=== PATIENT | male | born 1935 | race Hispanic/Latino ===

== ENCOUNTER 2016-12-16 05:30 | Inpatient (IN) | payer MEDICARE ==
[2016-12-16] MEDS ORDERED: NACL 0.9% 1000 ML 1,000 ML IV ONE (07:06)
[2016-12-16] MEDS ORDERED: LEVAQUIN 500MG/100ML 500 MG/100 ML BAG IV ONE (07:21)
[2016-12-16 07:57] LABS: BUN/Creatinine Ratio 16.36; Basophils % (Auto) 0.6 % (0.0-1.8); Blood Urea Nitrogen 18 mg/dL (9-20); Carbon Dioxide 27 mmol/L (22-30); Eosinophils % (Auto) 6.1 % (0.0-4.3); Glucose 77 mg/dL (75-100); Hematocrit 33.2 % (35.5-45.6); Hemoglobin 10.8 gm/dl (11.8-15.2); Mean Corpuscular HGB Conc 33 % (32-34); Mean Corpuscular Hemoglobin 28 pg (28-32); Mean Corpuscular Volume 84 fl (84-94); Platelet Count 215 K/mm3 (140-440); Red Blood Count 3.95 M/mm3 (3.65-5.03); Red Cell Distribution Width 16.1 % (13.2-15.2); White Blood Count 9.7 K/mm3 (4.5-11.0)
[2016-12-16 07:58] LABS: Anion Gap 16 mmol/L; Chloride 95.7 mmol/L (98-107); Potassium 4.5 mmol/L (3.6-5.0); Sodium 134 mmol/L (137-145)
[2016-12-16 08:06] LABS: INR 0.99 (0.87-1.13)
[2016-12-16 08:07] LABS: Partial Thromboplastin Time 34.7 Sec. (24.2-36.6)
--- NOTE | 2016-12-16 08:11 | XRay Report ---
LEFT HIP, 2 views: History: Pain after fall. The bony architecture is intact without evidence of fracture or dislocation. Vascular calcifications are noted. IMPRESSION: Unremarkable left hip.
--- NOTE | 2016-12-16 08:12 | XRay Report ---
AP CHEST: HISTORY: chest pain AP view of the chest demonstrates a normal mediastinal and cardiac contour with clear lungs and normal bony and soft tissue structures. IMPRESSION: No acute process.
--- NOTE | 2016-12-16 08:24 | Cat Scan Report ---
CT HEAD WITHOUT CONTRAST: HISTORY: Headache. TECHNIQUE: Sequential CT images without contrast. FINDINGS: Non-contrast CT of the head is submitted demonstrating central and cortical atrophy. There are low density changes in the periventricular white matter. A few chronic lacunar infarcts in both basal ganglia are unchanged since 09/16/16. There is no intracranial hemorrhage or mass effect. There is no shift of the midline. Basilar cisterns are patent. The included portions of the paranasal sinuses and mastoid air cells are clear. IMPRESSION: Senescent changes as noted. No acute intracranial process. No significant change since 09/16/16.
[2016-12-16 08:50] LABS: Bacteria,Urine 2+ /HPF (Negative); Bilirubin,Urine NEG (Negative); Blood,Urine MOD (Negative); Ketones,Urine NEG (Negative); Leukocyte Esterase,Urine LG (Negative); Nitrite,Urine POS (Negative); Urobilinogen,Urine < 2.0 mg/dL (<2.0)
[2016-12-16 08:51] LABS: WBC,Urine > 182.0 /HPF (0.0-6.0)
--- NOTE | 2016-12-16 09:30 | History and Physical Report ---
History of Present Illness Date of examination: 12/16/16 Date of admission: 12/16/16. Chief complaint: Altered mental status, history of fall History of present illness: Patient is a 81-year-old gentleman was a history of coronary artery disease status post CABG in 2005, dementia COPD, hypertension and hyperlipidemia who is being For by family members at home, was noted to have alteration in his mental status. Was therefore brought to the emergency department. Patient has an indwelling Amaral catheter for urinary retention. At emergency department she was found to be very cloudy. Urinalysis shows 182 white blood cell with positive nitrites. CT scan of the head was unremarkable. Patient had no fever. History was obtained from emergency room medical record as to was no family member around. Past History Past Medical History: CAD, COPD, hypertension, hyperlipidemia, other (dementia) Past Surgical History: CABG Social history: denies: smoking, alcohol abuse, prescription drug abuse, IV drug use Family history: no significant family history Medications and Allergies Allergies Allergy/AdvReac Type Severity Reaction Status Date / Time cefuroxime axetil Allergy Hives Verified 11/27/14 13:21 [From Ceftin] tetracycline Allergy Unknown Verified 11/27/14 13:22 Home Medications Medication Instructions Recorded Confirmed Last Taken Type Albuterol Sulfate [Proventil HFA] 1 - 2 puff IH Q4H PRN 11/27/14 09/16/16 Unknown History Aspirin [Aspirin BABY CHEW TAB] 81 mg PO QDAY 11/27/14 09/16/16 09/12/16 History Docusate Sodium [Colace CAP] 100 mg PO DAILY 11/27/14 09/16/16 09/12/16 History Duloxetine HCl [DULoxetine] 60 mg PO DAILY 11/27/14 09/16/16 09/12/16 History Haloperidol 0.5 mg PO BID 11/27/14 09/16/16 09/12/16 History Metoprolol [Lopressor TAB] 25 mg PO DAILY 11/27/14 09/16/16 09/12/16 History Nortriptyline [Pamelor] 10 mg PO HS 11/27/14 09/16/16 09/12/16 History lamoTRIgine [LaMICtal] 100 mg PO HS 11/27/14 09/16/16 09/12/16 History Tamsulosin [Flomax] 0.4 mg PO HS 06/14/16 09/16/16 09/12/16 History Ipratropium/Albuterol Sulfate 1 ampul IH TIDRT ampul.neb 06/21/16 09/16/16 Unknown Rx [Duoneb 0.5 mg-3 mg/3 ml Soln] LORazepam [Ativan] 0.5 mg PO DAILY #5 tablet 06/21/16 09/16/16 Unknown Rx amLODIPine [Norvasc] 10 mg PO QDAY 09/12/16 09/16/16 09/12/16 History Brimonidine 0.15% [Alphagan P 1 drops OP Q8H 09/16/16 09/16/16 Unknown History 0.15%] Lisinopril [Zestril TAB] 5 mg PO BID 09/16/16 09/16/16 Unknown History Methylphenidate HCl [Ritalin] 10 mg PO DAILY 09/16/16 09/16/16 Unknown History Levofloxacin [Levaquin TAB] 500 mg PO QDAY #7 tablet 09/19/16 Unknown Rx Nitrofurantoin Daniels/M-Cryst 100 mg PO Q12HR #20 capsule 09/25/16 Unknown Rx [Macrobid CAP] Active Meds: Active Medications Albuterol/Ipratropium (Duoneb 0.5 Mg-3 Mg/3 Ml Soln) 1 ampul IH TIDRT MELANIE Amlodipine Besylate (Norvasc) 10 mg PO QDAY [facility] Aspirin (Baby Aspirin) 81 mg PO QDAY [facility] Brimonidine Tartrate (Alphagan P 0.15%) 1 drops OU Q8H MELANIE Docusate Sodium (Colace) 100 mg PO DAILY [facility] Heparin Sodium (Porcine) (Heparin) 5,000 unit SUB-Q Q12HR [facility] Sodium Chloride (Nacl 0.9% 1000 Ml) 1,000 mls @ 125 mls/hr IV ONCE ONE Stop: 12/16/16 15:05 Last Admin: 12/16/16 08:45 Dose: 125 mls/hr Levofloxacin/Dextrose (Levaquin 750mg/150ml) 750 mg in 150 mls @ 100 mls/hr IV Q24HR MELANIE PRN Reason: Protocol Lamotrigine (Lamictal) 100 mg PO HS [facility] Lisinopril (Zestril) 5 mg PO BID [facility] Metoprolol Tartrate (Lopressor) 25 mg PO DAILY [facility] Miscellaneous Medication (Haloperidol [Haloperidol]) 0.5 mg PO BID MELANIE Tamsulosin HCl (Flomax) 0.4 mg PO HS [facility] Review of Systems ROS unobtainable: due to mental status Exam - Constitutional Vitals: Temp Pulse Resp BP Pulse Ox 98.6 F 75 17 129/55 100 12/16/16 06:04 12/16/16 06:40 12/16/16 06:40 12/16/16 06:40 12/16/16 06:40 General appearance: Present: no acute distress, cachectic - EENT Eyes: Present: PERRL - Neck Neck: Present: supple - Respiratory Respiratory effort: normal Respiratory: bilateral: diminished - Cardiovascular Heart Sounds: Present: S1 & S2. Absent: rub, click - Extremities Extremities: pulses symmetrical, No edema Peripheral Pulses: within normal limits - Abdominal General gastrointestinal: Present: soft, non-tender, non-distended, normal bowel sounds - Integumentary Integumentary: Present: clear, warm, dry - Musculoskeletal Musculoskeletal: gait normal, strength equal bilaterally - Psychiatric Psychiatric: appropriate mood/affect, intact judgment & insight - Neurologic Neurologic: CNII-XII intact, moves all extremities Results - Labs CBC & Chem 7: 12/16/16 07:20 12/16/16 07:20 Labs: Abnormal lab results 12/16/16 12/16/16 12/16/16 Range/Units 07:20 07:20 08:28 Hgb 10.8 L (11.8-15.2) gm/dl Hct 33.2 L (35.5-45.6) % RDW 16.1 H (13.2-15.2) % Daniels % (Auto) 9.4 H (0.0-7.3) % Eos % (Auto) 6.1 H (0.0-4.3) % Daniels # 0.9 H (0.0-0.8) K/mm3 Eos # 0.6 H (0.0-0.4) K/mm3 Sodium 134 L (137-145) mmol/L Chloride 95.7 L (98-107) mmol/L Urine WBC (Auto) > 182.0 H (0.0-6.0) /HPF Assessment and Plan 1. Urinary tract infection: Obtain urine culture. Patient has an indwelling Amaral skeletal for urinary retention. We'll commence patient on IV Levaquin. 2. Metabolic encephalopathy: Likely secondary to infection. 3. Possible sepsis: We'll check lactic acid level, blood culture, commence IV hydration. Patient already IV Levaquin. 4. Anemia: Likely of 20 disease versus malnutrition. We will obtain iron TIBC B12 folic acid levels. 5. History of dementia. We'll monitor closely. 6. DVT prophylaxis with Lovenox and GI prophylaxis with Pepcid Spent 35 minutes in direct patient care review of medical records, laboratory and radiological data during this admission process
--- NOTE | 2016-12-16 09:34 | Emergency Department Report ---
ED General Adult HPI - General Chief complaint: Fall Stated complaint: HIP PAIN Time Seen by Provider: 12/16/16 07:04 Source: EMS Mode of arrival: Stretcher Limitations: Other - History of Present Illness Initial comments: There is a family member currently available. I am relying on the triage history. The states patiently recently seen for fall and left hip pain. Patient has Amaral catheter in order thinks patient has a UTI. Apparently his level of consciousness has been diminished lately. Per EMS there was left hip pain. On my encounter the patient has no complaint of pain. He is unable to provide any historical information due to apparent advanced dementia. However, he is alert and has no specific symptoms. He does know he is in a hospital but that's all the contextual information he can provide. -: unknown Location: left, lower extremity Worsens with: other - Related Data Home Medications Medication Instructions Recorded Confirmed Last Taken Albuterol Sulfate [Proventil HFA] 1 - 2 puff IH Q4H PRN 11/27/14 09/16/16 Unknown Aspirin [Aspirin BABY CHEW TAB] 81 mg PO QDAY 11/27/14 09/16/16 09/12/16 Docusate Sodium [Colace CAP] 100 mg PO DAILY 11/27/14 09/16/16 09/12/16 Duloxetine HCl [DULoxetine] 60 mg PO DAILY 11/27/14 09/16/16 09/12/16 Haloperidol 0.5 mg PO BID 11/27/14 09/16/16 09/12/16 Metoprolol [Lopressor TAB] 25 mg PO DAILY 11/27/14 09/16/16 09/12/16 Nortriptyline [Pamelor] 10 mg PO HS 11/27/14 09/16/16 09/12/16 lamoTRIgine [LaMICtal] 100 mg PO HS 11/27/14 09/16/16 09/12/16 Tamsulosin [Flomax] 0.4 mg PO HS 06/14/16 09/16/16 09/12/16 amLODIPine [Norvasc] 10 mg PO QDAY 09/12/16 09/16/16 09/12/16 Brimonidine 0.15% [Alphagan P 1 drops OP Q8H 09/16/16 09/16/16 Unknown 0.15%] Lisinopril [Zestril TAB] 5 mg PO BID 09/16/16 09/16/16 Unknown Methylphenidate HCl [Ritalin] 10 mg PO DAILY 09/16/16 09/16/16 Unknown Previous Rx's Medication Instructions Recorded Last Taken Type Ipratropium/Albuterol Sulfate 1 ampul IH TIDRT ampul.neb 06/21/16 Unknown Rx [Duoneb 0.5 mg-3 mg/3 ml Soln] LORazepam [Ativan] 0.5 mg PO DAILY #5 tablet 06/21/16 Unknown Rx Levofloxacin [Levaquin TAB] 500 mg PO QDAY #7 tablet 09/19/16 Unknown Rx Nitrofurantoin [place]bot/M-Cryst 100 mg PO Q12HR #20 capsule 09/25/16 Unknown Rx [Macrobid CAP] Allergies Allergy/AdvReac Type Severity Reaction Status Date / Time cefuroxime axetil Allergy Hives Verified 11/27/14 13:21 [From Ceftin] tetracycline Allergy Unknown Verified 11/27/14 13:22 ED Review of Systems ROS: Stated complaint: HIP PAIN Other details as noted in HPI Comment: Unobtainable due to pts medical conditions ED Past Medical Hx - Past Medical History Hx Hypertension: Yes Hx CVA: Yes (TIA) Hx Heart Attack/AMI: Yes Hx Congestive Heart Failure: Yes Hx Diabetes: Yes Hx COPD: Yes Hx Dementia: Yes Hx HIV: No Additional medical history: enlarged prostate, urinary retention, glaucoma, dementia, alzheimers, CAD, diabetes - Surgical History Hx Open Heart Surgery: Yes Hx Cholecystectomy: Yes Additional Surgical History: Abdominal surgery had turmor removed - Social History Smoking Status: Unknown if ever smoked Substance Use Type: None - Medications Home Medications: Home Medications Medication Instructions Recorded Confirmed Last Taken Type Albuterol Sulfate [Proventil HFA] 1 - 2 puff IH Q4H PRN 11/27/14 09/16/16 Unknown History Aspirin [Aspirin BABY CHEW TAB] 81 mg PO QDAY 11/27/14 09/16/16 09/12/16 History Docusate Sodium [Colace CAP] 100 mg PO DAILY 11/27/14 09/16/16 09/12/16 History Duloxetine HCl [DULoxetine] 60 mg PO DAILY 11/27/14 09/16/16 09/12/16 History Haloperidol 0.5 mg PO BID 0209/16/16 09/12/16 History Metoprolol [Lopressor TAB] 25 mg PO DAILY 11/27/14 09/16/16 09/12/16 History Nortriptyline [Pamelor] 10 mg PO HS 11/27/14 09/16/16 09/12/16 History lamoTRIgine [LaMICtal] 100 mg PO HS 11/27/14 09/16/16 09/12/16 History Tamsulosin [Flomax] 0.4 mg PO HS 06/14/16 09/16/16 09/12/16 History Ipratropium/Albuterol Sulfate 1 ampul IH TIDRT ampul.neb 06/21/16 09/16/16 Unknown Rx [Duoneb 0.5 mg-3 mg/3 ml Soln] LORazepam [Ativan] 0.5 mg PO DAILY #5 tablet 06/21/16 09/16/16 Unknown Rx amLODIPine [Norvasc] 10 mg PO QDAY 09/12/16 09/16/16 09/12/16 History Brimonidine 0.15% [Alphagan P 1 drops OP Q8H 09/16/16 09/16/16 Unknown History 0.15%] Lisinopril [Zestril TAB] 5 mg PO BID 09/16/16 09/16/16 Unknown History Methylphenidate HCl [Ritalin] 10 mg PO DAILY 09/16/16 09/16/16 Unknown History Levofloxacin [Levaquin TAB] 500 mg PO QDAY #7 tablet 09/19/16 Unknown Rx Nitrofurantoin [place]bot/M-Cryst 100 mg PO Q12HR #20 capsule 09/25/16 Unknown Rx [Macrobid CAP] ED Physical Exam - General Limitations: Altered Mental Status General appearance: alert, in no apparent distress - Head Head exam: Present: atraumatic, normocephalic - Eye Eye exam: Present: normal appearance. Absent: scleral icterus - ENT ENT exam: Present: normal exam, mucous membranes moist - Neck Neck exam: Present: normal inspection - Respiratory Respiratory exam: Present: normal lung sounds bilaterally. Absent: respiratory distress - Cardiovascular Cardiovascular Exam: Present: regular rate, normal rhythm. Absent: systolic murmur, diastolic murmur, rubs, gallop - GI/Abdominal GI/Abdominal exam: Present: soft, normal bowel sounds. Absent: distended, tenderness, guarding, rebound, rigid - Rectal Rectal exam: Present: deferred - Extremities Exam Extremities exam: Present: normal inspection, full ROM, normal capillary refill. Absent: tenderness, pedal edema, joint swelling, calf tenderness - Back Exam Back exam: Present: normal inspection - Neurological Exam Neurological exam: Present: alert, oriented X3, CN II-XII intact. Absent: motor sensory deficit - Psychiatric Psychiatric exam: Present: normal affect, normal mood - Skin Skin exam: Present: warm, dry, intact, normal color. Absent: rash ED Course Vital Signs 12/16/16 12/16/16 12/16/16 05:59 06:00 06:03 Temperature 98.6 F Pulse Rate 76 Respiratory 16 Rate Blood Pressure 123/57 130/54 Blood Pressure 123/57 [Right] O2 Sat by Pulse 93 93 Oximetry 12/16/16 12/16/16 12/16/16 06:04 06:10 06:20 Temperature 98.6 F Pulse Rate 76 Respiratory 16 Rate Blood Pressure 123/57 130/54 Blood Pressure [Right] O2 Sat by Pulse 93 93 96 Oximetry 12/16/16 12/16/16 06:30 06:40 Temperature Pulse Rate 71 75 Respiratory 18 17 Rate Blood Pressure 129/55 129/55 Blood Pressure [Right] O2 Sat by Pulse 97 100 Oximetry - Reevaluation(s) Reevaluation #1: The patient was given empiric ceftriaxone. 12/16/16 09:31 Reevaluation #2: Discussed with Dr. Long and admitted to the hospitalist service. 12/16/16 09:36 ED Medical Decision Making - Lab Data Result diagrams: 12/16/16 07:20 12/16/16 07:20 Laboratory Results - last 24 hr 12/16/16 12/16/16 12/16/16 07:20 07:20 07:20 WBC 9.7 RBC 3.95 Hgb 10.8 L Hct 33.2 L MCV 84 MCH 28 MCHC 33 RDW 16.1 H Plt Count 215 Lymph % (Auto) 19.0 [place] % (Auto) 9.4 H Eos % (Auto) 6.1 H Baso % (Auto) 0.6 Lymph # 1.9 Talbot # 0.9 H Eos # 0.6 H Baso # 0.1 Seg Neutrophils % 64.9 Seg Neutrophils # 6.3 PT 13.0 INR 0.99 APTT 34.7 Sodium 134 L Potassium 4.5 Chloride 95.7 L Carbon Dioxide 27 Anion Gap 16 BUN 18 Creatinine 1.1 Estimated GFR > 60 BUN/Creatinine Ratio 16.36 Glucose 77 Lactic Acid Calcium 9.0 Urine Color Urine Turbidity Urine pH Ur Specific [place] Urine Protein Urine Glucose (UA) Urine Ketones Urine Blood Urine Nitrite Urine Bilirubin Urine Urobilinogen Ur Leukocyte Esterase Urine WBC (Auto) Urine RBC (Auto) Urine Bacteria (Auto) Urine WBC Clumps Amorphous Crystals Blood Type Antibody Screen 12/16/16 12/16/16 12/16/16 07:20 07:20 08:28 WBC RBC Hgb Hct MCV MCH MCHC RDW Plt Count Lymph % (Auto) [place] % (Auto) Eos % (Auto) Baso % (Auto) Lymph # Talbot # Eos # Baso # Seg Neutrophils % Seg Neutrophils # PT INR APTT Sodium Potassium Chloride Carbon Dioxide Anion Gap BUN Creatinine Estimated GFR BUN/Creatinine Ratio Glucose Lactic Acid 0.7 Calcium Urine Color Yellow Urine Turbidity Turbid Urine pH 7.0 Ur Specific Carpio 1.016 Urine Protein 30 mg/dl Urine Glucose (UA) Neg Urine Ketones Neg Urine Blood Mod Urine Nitrite Pos Urine Bilirubin Neg Urine Urobilinogen < 2.0 Ur Leukocyte Esterase Lg Urine WBC (Auto) > 182.0 H Urine RBC (Auto) 80.0 Urine Bacteria (Auto) 2+ Urine WBC Clumps 3+ Amorphous Crystals Few Blood Type B POSITIVE Antibody Screen Negative - Radiology Data Radiology results: report reviewed interpreted by me: Extensive vascular calcifications and previous iliac grafts bilaterally. No acute process and no fracture. Previous CT the abdomen reviewed showed nothing acute from last admission. Critical care attestation.: If time is entered above; I have spent that time in minutes in the direct care of this critically ill patient, excluding procedure time. ED Disposition Clinical Impression: Pyelonephritis, Volume depletion, Physical deconditioning Altered mental status Qualifiers: Altered mental status type: disorientation Qualified Code(s): R41.0 - Disorientation, unspecified Dementia Qualifiers: Dementia type: unspecified type Dementia behavioral disturbance: without behavioral disturbance Qualified Code(s): F03.90 - Unspecified dementia without behavioral disturbance Disposition: OP ADMITTED IP TO THIS HOSP Is pt being admited?: Yes Does the pt Need Aspirin: Yes Condition: Stable Referrals: PRIMARY CARE, [Primary Care Provider] - 3-5 Days Time of Disposition: 09:36
[2016-12-16 09:52] LABS: Creatine Kinase MB 2.1 ng/mL (0.0-4.0)
--- NOTE | 2016-12-16 09:55 | Admit Criteria Form ---
Admission Criteria Documentation: MENTAL STATUS CHANGE Clinical Indications for Inpatient Care (Place 'X' for any and all applicable criteria): Ongoing inpatient care may be needed for ANY ONE of the following(1)(2)(3)(5)(6) : [ ]I. Suspected serious etiology (eg, medical disorder, [employer]ICIAN event) of mental status change [ ]II. Danger to self or others not manageable at lower level of care [ ]III. Grave disability (eg, inability to perform self care necessary at lower level of care) [ ]IV. Agitation or inappropriate behavior interfering with care for primary condition (eg, attempting to discontinue lines or drains prematurely, unable to cooperate with respiratory care) [ ]V. Delirium [A] [D][E] as described by ANY ONE of the following(26): [ ]a) Delirium due to alcohol or sedative [F] withdrawal [ ]b) Delirium of uncertain etiology that has not responded to appropriate empiric treatment [ ]c) Delirium that prevents performance of a life-sustaining function (eg, feeding or hydrating oneself) [ X]. General contraindications and/or Inappropriate clinical situations for Observational Care in patients with Mental Status Change, when ANY ONE of the following is required: [X ]a) Prediction of prolongation of LOS based on ANY ONE of the following may be considered as a contraindication for observational care 2, 3, 4, 5, 6, 7, 8, 9, 10, 11 [X]i) Age > 65 yrs. [ X]ii) Patient arriving by ambulance [ ]iii) Patient with high acuity [ ]iv) Patient requiring vital sign monitoring [ ]v) Patient on IV medication [ ]b) Systolic blood pressures 180mmHg 3,12 [ ]c) Patient with altered mental status including delirium and other alteration of consciousness, (3) [ ]d) Patient whose discharge disposition will be to a care home home or rehabilitation home should not be managed in Emergency Department Observation Unit. CMS rule requires 3 days hospital stay before such placement.3,13 [ ]e) Patient with failure to thrive due to broad array of etiologies 3,16,17 [ ]f) Inability to ambulate 3,14 Extended stay beyond goal length of stay for the primary condition may be needed until ALL of the following are present(3)(5): [ ]a) Underlying medical etiology of mental status change is absent, or has been established and adequately treated [ ]b) Danger to self or others is absent or manageable at lower level of care. [ ]c) Behavior crisis management, including physical or chemical restraints, is not required or available at lower level of car [ ]d) Substance or alcohol withdrawal is absent or manageable at lower level of care. [ ]e) Behavioral symptoms (eg, agitation, somnolence, inappropriate behavior) are absent, or are manageable at lower level of care. The original [facility] [employer] content created by [email or web address] has been revised. The portions of the content which have been revised are identified through the use of italic text or in bold, and [facility] has neither reviewed nor approved the modified material. All other unmodified content is copyright [facility]. Please see references footnoted in the original [facility] edition 2016 Admission Criteria Met: Yes
[2016-12-16] MEDS ORDERED: LEVAQUIN 750MG/150ML 750 MG/150 ML BAG IV SCH (10:00)
[2016-12-16] MEDS: ZESTRIL PO SCH ×2 (10:30→22:47)
[2016-12-16] MEDS: BABY ASPIRIN PO SCH (10:30)
[2016-12-16] MEDS: COLACE PO SCH (10:30)
[2016-12-16] MEDS: NORVASC PO SCH (10:30)
[2016-12-16] MEDS: HALDOL PO SCH ×3 (10:30→22:48)
[2016-12-16] MEDS: LOPRESSOR PO SCH (10:30)
[2016-12-16] MEDS: ALPHAGAN P 0.15% OU SCH ×2 (10:30→22:48)
[2016-12-16] MEDS: HEPARIN SUB-Q SCH ×2 (10:49→22:48)
[2016-12-16] MEDS ORDERED: LEVAQUIN 250MG/50ML 250 MG/50 ML BAG IV ONE (11:11)
[2016-12-16 11:49] LABS: Total Iron Binding Capacity 333.2 mcg/dL (250-450)
[2016-12-16] MEDS: DUONEB 0.5 MG-3 MG/3 ML SOLN IH SCH ×2 (14:26→20:30)
[2016-12-16 17:56] LABS: Creatine Kinase MB 2.7 ng/mL (0.0-4.0)
[2016-12-16] MEDS: FLOMAX PO SCH (22:48)
[2016-12-16] MEDS: LaMICtal PO SCH (22:51)
[2016-12-17] MEDS: ALPHAGAN P 0.15% OU SCH ×3 (02:35→21:42)
[2016-12-17 06:56] LABS: Creatine Kinase MB 2.7 ng/mL (0.0-4.0)
[2016-12-17] MEDS: DUONEB 0.5 MG-3 MG/3 ML SOLN IH SCH ×3 (07:30→20:46)
[2016-12-17] MEDS: LEVAQUIN 750MG/150ML 750 MG/150 ML BAG IV SCH (15:54)
[2016-12-17] MEDS: ZESTRIL PO SCH ×2 (15:58→21:41)
[2016-12-17] MEDS: LOPRESSOR PO SCH (15:59)
[2016-12-17] MEDS: NORVASC PO SCH (15:59)
[2016-12-17] MEDS: COLACE PO SCH (15:59)
[2016-12-17] MEDS: HEPARIN SUB-Q SCH ×2 (16:00→21:50)
[2016-12-17] MEDS: BABY ASPIRIN PO SCH (16:00)
[2016-12-17] MEDS: HALDOL PO SCH ×2 (16:00→21:41)
--- NOTE | 2016-12-17 18:56 | Progress Note ---
Assessment and Plan Assessment and plan: Toxic metabolic encephalopathy due to UTI and sepsis. Supportive care, neurochecks Sepsis secondary to UTI. Still on Levaquin 750 mg IV daily. Operative care UTI. Levaquin IV Coronary artery disease . This is stable no chest pain or shortness of breath. 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 Continue Norvasc and lisinopril, lOPRESSOR Hyperlipidemia Dementia. He is from a assisted facility Due to prophylaxis with subcutaneous heparin Full CODE STATUS History Interval history: Altered mental status Hospitalist Physical - Physical exam Narrative exam: Gen: not in acute distress, HEENT: normocephalic,atraumatic Neck :supple, no JVD Lungs: clear to auscultation bilaterally, no crackles no wheezes Heart: S1 and S2 regular, no murmurs no gallops, Abdomen: soft nontender, nondistended, normal bowel sounds Extremities: no edema, clubbing or cyanosis, Neuro: Lethargic P - Constitutional Vitals: Temp Pulse Resp BP Pulse Ox 97.8 F 98 H 20 165/98 98 12/17/16 08:50 12/17/16 15:58 12/17/16 13:29 12/17/16 15:58 12/17/16 11:00 General appearance: Present: no acute distress, cachectic - EENT Eyes: Present: exopthalmos Results - Labs CBC & Chem 7: 12/18/16 07:10 12/18/16 07:10 Labs: Laboratory Last Values WBC 9.7 K/mm3 (4.5-11.0) 12/16/16 07:20 RBC 3.95 M/mm3 (3.65-5.03) 12/16/16 07:20 Hgb 10.8 gm/dl (11.8-15.2) L 12/16/16 07:20 Hct 33.2 % (35.5-45.6) L 12/16/16 07:20 MCV 84 fl (84-94) 12/16/16 07:20 MCH 28 pg (28-32) 12/16/16 07:20 MCHC 33 % (32-34) 12/16/16 07:20 RDW 16.1 % (13.2-15.2) H 12/16/16 07:20 Plt Count 215 K/mm3 (140-440) 12/16/16 07:20 Lymph % (Auto) 19.0 % (13.4-35.0) 12/16/16 07:20 [place] % (Auto) 9.4 % (0.0-7.3) H 12/16/16 07:20 Eos % (Auto) 6.1 % (0.0-4.3) H 12/16/16 07:20 Baso % (Auto) 0.6 % (0.0-1.8) 12/16/16 07:20 Lymph # 1.9 K/mm3 (1.2-5.4) 12/16/16 07:20 [place] # 0.9 K/mm3 (0.0-0.8) H 12/16/16 07:20 Eos # 0.6 K/mm3 (0.0-0.4) H 12/16/16 07:20 Baso # 0.1 K/mm3 (0.0-0.1) 12/16/16 07:20 Seg Neutrophils % 64.9 % (40.0-70.0) 12/16/16 07:20 Seg Neutrophils # 6.3 K/mm3 (1.8-7.7) 12/16/16 07:20 PT 13.0 Sec. (12.2-14.9) 12/16/16 07:20 INR 0.99 (0.87-1.13) 12/16/16 07:20 APTT 34.7 Sec. (24.2-36.6) 12/16/16 07:20 Sodium 134 mmol/L (137-145) L 12/16/16 07:20 Potassium 4.5 mmol/L (3.6-5.0) 12/16/16 07:20 Chloride 95.7 mmol/L (98-107) L 12/16/16 07:20 Carbon Dioxide 27 mmol/L (22-30) 12/16/16 07:20 Anion Gap 16 mmol/L 12/16/16 07:20 BUN 18 mg/dL (9-20) 12/16/16 07:20 Creatinine 1.1 mg/dL (0.8-1.5) 12/16/16 07:20 Estimated GFR > 60 ml/min 12/16/16 07:20 BUN/Creatinine Ratio 16.36 % 12/16/16 07:20 Glucose 77 mg/dL (75-100) 12/16/16 07:20 Lactic Acid 2.1 mmol/L (0.7-2.0) H* 12/16/16 21:48 Calcium 9.0 mg/dL (8.4-10.2) 12/16/16 07:20 Iron 45 ug/dL (49-181) L 12/16/16 11:14 TIBC 333.20 mcg/dL (250-450) 12/16/16 11:14 % Saturation 13.51 % 12/16/16 11:14 Transferrin 238 mg/dl (180-329) 12/16/16 11:14 Total Creatine Kinase 82 units/L (55-170) 12/17/16 05:35 CK-MB (CK-2) 2.7 ng/mL (0.0-4.0) 12/17/16 05:35 CK-MB (CK-2) Rel Index 3.2 (0-4) 12/17/16 05:35 Urine Color Yellow (Yellow) 12/16/16 08:28 Urine Turbidity Turbid (Clear) 12/16/16 08:28 Urine pH 7.0 (5.0-7.0) 12/16/16 08:28 Ur Specific [facility] 1.016 (1.003-1.030) 12/16/16 08:28 Urine Protein 30 mg/dl mg/dL (Negative) 12/16/16 08:28 Urine Glucose (UA) Neg mg/dL (Negative) 12/16/16 08:28 Urine Ketones Neg mg/dL (Negative) 12/16/16 08:28 Urine Blood Mod (Negative) 12/16/16 08:28 Urine Nitrite Pos (Negative) 12/16/16 08:28 Urine Bilirubin Neg (Negative) 12/16/16 08:28 Urine Urobilinogen < 2.0 mg/dL (<2.0) 12/16/16 08:28 Ur Leukocyte Esterase Lg (Negative) 12/16/16 08:28 Urine WBC (Auto) > 182.0 /HPF (0.0-6.0) H 12/16/16 08:28 Urine RBC (Auto) 80.0 /HPF (0.0-6.0) 12/16/16 08:28 Urine Bacteria (Auto) 2+ /HPF (Negative) 12/16/16 08:28 Urine WBC Clumps 3+ /HPF 12/16/16 08:28 Amorphous Crystals Few 12/16/16 08:28 Blood Type B POSITIVE 12/16/16 07:20 Antibody Screen Negative 12/16/16 07:20
[2016-12-17] MEDS: LaMICtal PO SCH (21:41)
[2016-12-17] MEDS: PAMELOR PO SCH (21:41)
[2016-12-17] MEDS: FLOMAX PO SCH (21:42)
[2016-12-18] MEDS: ALPHAGAN P 0.15% OU SCH ×3 (03:04→17:44)
[2016-12-18 07:46] LABS: Hematocrit 35.8 % (35.5-45.6); Hemoglobin 11.6 gm/dl (11.8-15.2); Mean Corpuscular HGB Conc 32 % (32-34); Mean Corpuscular Hemoglobin 27 pg (28-32); Mean Corpuscular Volume 84 fl (84-94); Platelet Count 261 K/mm3 (140-440); Red Blood Count 4.26 M/mm3 (3.65-5.03); Red Cell Distribution Width 16.5 % (13.2-15.2); White Blood Count 11.7 K/mm3 (4.5-11.0)
[2016-12-18 08:01] LABS: Anion Gap 20 mmol/L; Blood Urea Nitrogen 20 mg/dL (9-20); Calcium 9.7 mg/dL (8.4-10.2); Carbon Dioxide 27 mmol/L (22-30); Chloride 97.2 mmol/L (98-107); Glucose 110 mg/dL (75-100); Potassium 4.8 mmol/L (3.6-5.0); Sodium 139 mmol/L (137-145)
[2016-12-18] MEDS: LEVAQUIN 750MG/150ML 750 MG/150 ML BAG IV SCH (09:03)
[2016-12-18] MEDS: BABY ASPIRIN PO SCH (09:14)
[2016-12-18] MEDS: NORVASC PO SCH (09:15)
[2016-12-18] MEDS: ZESTRIL PO SCH ×2 (09:15→23:35)
[2016-12-18] MEDS: LOPRESSOR PO SCH (09:15)
[2016-12-18] MEDS: COLACE PO SCH (09:15)
[2016-12-18] MEDS: HALDOL PO SCH ×2 (09:16→23:33)
[2016-12-18] MEDS: HEPARIN SUB-Q SCH ×2 (09:17→23:34)
[2016-12-18] MEDS: DUONEB 0.5 MG-3 MG/3 ML SOLN IH SCH ×3 (09:18→19:21)
[2016-12-18] MEDS ORDERED: METHYLPHENIDATE HCL PO SCH (10:00)
--- NOTE | 2016-12-18 16:31 | Progress Note ---
Assessment and Plan Assessment and plan: Toxic metabolic encephalopathy due to UTI and sepsis. Supportive care, neurochecks Sepsis secondary to UTI. Continue Levaquin 750 mg IV daily. Supportive care UTI. Levaquin IV Coronary artery disease s/p CABG. This is stable, no chest pain or shortness of breath. On Aspirin, Lopressor Hypertensive urgency. Blood pressure elevated. We'll add hydralazine 50 mg by mouth every 8 hours. Hyperlipidemia Dementia. He is cared for at home by family members DVT prophylaxis with subcutaneous heparin Full CODE STATUS History Interval history: Since admitted with altered mental status, Less confused No fever Hospitalist Physical - Physical exam Narrative exam: Gen: not in acute distress, HEENT: normocephalic,atraumatic Neck :supple, no JVD Lungs: clear to auscultation bilaterally, no crackles no wheezes Heart: S1 and S2 regular, no murmurs no gallops, Abdomen: soft nontender, nondistended, normal bowel sounds Extremities: no edema, clubbing or cyanosis, Neuro: Lethargic, less confused - Constitutional Vitals: Temp Pulse Resp BP Pulse Ox 97.7 F 96 H 18 162/73 99 12/18/16 12:20 12/18/16 14:32 12/18/16 14:32 12/18/16 12:20 12/18/16 12:20 Results - Labs CBC & Chem 7: 12/18/16 07:10 12/18/16 07:10 Labs: Laboratory Last Values WBC 11.7 K/mm3 (4.5-11.0) H 12/18/16 07:10 RBC 4.26 M/mm3 (3.65-5.03) 12/18/16 07:10 Hgb 11.6 gm/dl (11.8-15.2) L 12/18/16 07:10 Hct 35.8 % (35.5-45.6) 12/18/16 07:10 MCV 84 fl (84-94) 12/18/16 07:10 MCH 27 pg (28-32) L 12/18/16 07:10 MCHC 32 % (32-34) 12/18/16 07:10 RDW 16.5 % (13.2-15.2) H 12/18/16 07:10 Plt Count 261 K/mm3 (140-440) 12/18/16 07:10 Lymph % (Auto) 19.0 % (13.4-35.0) 12/16/16 07:20 [place] % (Auto) 9.4 % (0.0-7.3) H 12/16/16 07:20 Eos % (Auto) 6.1 % (0.0-4.3) H 12/16/16 07:20 Baso % (Auto) 0.6 % (0.0-1.8) 12/16/16 07:20 Lymph # 1.9 K/mm3 (1.2-5.4) 12/16/16 07:20 [place] # 0.9 K/mm3 (0.0-0.8) H 12/16/16 07:20 Eos # 0.6 K/mm3 (0.0-0.4) H 12/16/16 07:20 Baso # 0.1 K/mm3 (0.0-0.1) 12/16/16 07:20 Seg Neutrophils % 64.9 % (40.0-70.0) 12/16/16 07:20 Seg Neutrophils # 6.3 K/mm3 (1.8-7.7) 12/16/16 07:20 PT 13.0 Sec. (12.2-14.9) 12/16/16 07:20 INR 0.99 (0.87-1.13) 12/16/16 07:20 APTT 34.7 Sec. (24.2-36.6) 12/16/16 07:20 Sodium 139 mmol/L (137-145) 12/18/16 07:10 Potassium 4.8 mmol/L (3.6-5.0) 12/18/16 07:10 Chloride 97.2 mmol/L (98-107) L 12/18/16 07:10 Carbon Dioxide 27 mmol/L (22-30) 12/18/16 07:10 Anion Gap 20 mmol/L 12/18/16 07:10 BUN 20 mg/dL (9-20) 12/18/16 07:10 Creatinine 1.0 mg/dL (0.8-1.5) 12/18/16 07:10 Estimated GFR > 60 ml/min 12/18/16 07:10 BUN/Creatinine Ratio 20.00 % 12/18/16 07:10 Glucose 110 mg/dL (75-100) H 12/18/16 07:10 Lactic Acid 2.1 mmol/L (0.7-2.0) H* 12/16/16 21:48 Calcium 9.7 mg/dL (8.4-10.2) 12/18/16 07:10 Iron 45 ug/dL (49-181) L 12/16/16 11:14 TIBC 333.20 mcg/dL (250-450) 12/16/16 11:14 % Saturation 13.51 % 12/16/16 11:14 Transferrin 238 mg/dl (180-329) 12/16/16 11:14 Total Creatine Kinase 82 units/L (55-170) 12/17/16 05:35 CK-MB (CK-2) 2.7 ng/mL (0.0-4.0) 12/17/16 05:35 CK-MB (CK-2) Rel Index 3.2 (0-4) 12/17/16 05:35 Urine Color Yellow (Yellow) 12/16/16 08:28 Urine Turbidity Turbid (Clear) 12/16/16 08:28 Urine pH 7.0 (5.0-7.0) 12/16/16 08:28 Ur Specific [place] 1.016 (1.003-1.030) 12/16/16 08:28 Urine Protein 30 mg/dl mg/dL (Negative) 12/16/16 08:28 Urine Glucose (UA) Neg mg/dL (Negative) 12/16/16 08:28 Urine Ketones Neg mg/dL (Negative) 12/16/16 08:28 Urine Blood Mod (Negative) 12/16/16 08:28 Urine Nitrite Pos (Negative) 12/16/16 08:28 Urine Bilirubin Neg (Negative) 12/16/16 08:28 Urine Urobilinogen < 2.0 mg/dL (<2.0) 12/16/16 08:28 Ur Leukocyte Esterase Lg (Negative) 12/16/16 08:28 Urine WBC (Auto) > 182.0 /HPF (0.0-6.0) H 12/16/16 08:28 Urine RBC (Auto) 80.0 /HPF (0.0-6.0) 12/16/16 08:28 Urine Bacteria (Auto) 2+ /HPF (Negative) 12/16/16 08:28 Urine WBC Clumps 3+ /HPF 12/16/16 08:28 Amorphous Crystals Few 12/16/16 08:28 Blood Type B POSITIVE 12/16/16 07:20 Antibody Screen Negative 12/16/16 07:20
[2016-12-18] MEDS ORDERED: APRESOLINE IV SCH (18:00)
[2016-12-18] MEDS: APRESOLINE IV PRN (18:08)
[2016-12-18] MEDS: PAMELOR PO SCH (23:33)
[2016-12-18] MEDS: FLOMAX PO SCH (23:33)
[2016-12-18] MEDS: LaMICtal PO SCH (23:33)
[2016-12-18] MEDS: APRESOLINE PO SCH (23:36)
[2016-12-19] MEDS: ALPHAGAN P 0.15% OU SCH ×3 (02:20→18:39)
[2016-12-19] MEDS: APRESOLINE PO SCH ×3 (05:25→22:23)
[2016-12-19] MEDS: DUONEB 0.5 MG-3 MG/3 ML SOLN IH SCH ×3 (09:12→19:35)
[2016-12-19] MEDS: LEVAQUIN 750MG/150ML 750 MG/150 ML BAG IV SCH (12:15)
[2016-12-19] MEDS: COLACE PO SCH (12:16)
[2016-12-19] MEDS: LOPRESSOR PO SCH (12:16)
[2016-12-19] MEDS: HALDOL PO SCH ×2 (12:17→22:24)
[2016-12-19] MEDS: BABY ASPIRIN PO SCH (12:17)
[2016-12-19] MEDS: NORVASC PO SCH (12:17)
[2016-12-19] MEDS: ZESTRIL PO SCH ×2 (12:31→22:22)
[2016-12-19] MEDS ORDERED: NACL 0.9% 500 ML IR ONE (12:43)
[2016-12-19] MEDS: HEPARIN SUB-Q SCH ×2 (17:15→22:24)
--- NOTE | 2016-12-19 19:23 | Progress Note ---
Assessment and Plan Assessment and plan: Toxic metabolic encephalopathy due to UTI and sepsis. Supportive care, neurochecks Sepsis secondary to UTI. Continue Levaquin 750 mg IV daily. Supportive care UTI. Levaquin IV. Patient came in with indwelling jacobson catheter from home. Discussed with Nurse to contact family to determine how long jacobson catheter has been placed. Leukocytosis due to sepsis, UTI. Coronary artery disease s/p CABG. This is stable, no chest pain or shortness of breath. On Aspirin, Lopressor Hypertensive urgency. Blood pressure now stable after adding Hydralazine 50 mg by mouth every 8 hours to Norvasc, Lopressor. Hyperlipidemia Dementia. He is cared for at home by family members DVT prophylaxis with subcutaneous heparin Full CODE STATUS History Interval history: Patient admitted with altered mental status found to have sepsis, UTI confused, agitated, on restraints No fever Hospitalist Physical - Physical exam Narrative exam: Gen: not in acute distress, HEENT: normocephalic,atraumatic Neck :supple, no JVD Lungs: clear to auscultation bilaterally, no crackles no wheezes Heart: S1 and S2 regular, no murmurs no gallops, Abdomen: soft non-tender, non-distended, normal bowel sounds Extremities: no edema, clubbing or cyanosis, Neuro: Awake, confused,agitated, pulling tubes, on restraints - Constitutional Vitals: Temp Pulse Resp BP Pulse Ox 98.1 F 88 16 119/60 98 12/19/16 17:24 12/19/16 17:24 12/19/16 17:24 12/19/16 17:24 12/19/16 17:24 General appearance: Present: no acute distress, cachectic Results - Labs CBC & Chem 7: 12/20/16 05:13 12/18/16 07:10 Labs: Laboratory Last Values WBC 11.7 K/mm3 (4.5-11.0) H 12/18/16 07:10 RBC 4.26 M/mm3 (3.65-5.03) 12/18/16 07:10 Hgb 11.6 gm/dl (11.8-15.2) L 12/18/16 07:10 Hct 35.8 % (35.5-45.6) 12/18/16 07:10 MCV 84 fl (84-94) 12/18/16 07:10 MCH 27 pg (28-32) L 12/18/16 07:10 MCHC 32 % (32-34) 12/18/16 07:10 RDW 16.5 % (13.2-15.2) H 12/18/16 07:10 Plt Count 261 K/mm3 (140-440) 12/18/16 07:10 Lymph % (Auto) 19.0 % (13.4-35.0) 12/16/16 07:20 [place] % (Auto) 9.4 % (0.0-7.3) H 12/16/16 07:20 Eos % (Auto) 6.1 % (0.0-4.3) H 12/16/16 07:20 Baso % (Auto) 0.6 % (0.0-1.8) 12/16/16 07:20 Lymph # 1.9 K/mm3 (1.2-5.4) 12/16/16 07:20 [place] # 0.9 K/mm3 (0.0-0.8) H 12/16/16 07:20 Eos # 0.6 K/mm3 (0.0-0.4) H 12/16/16 07:20 Baso # 0.1 K/mm3 (0.0-0.1) 12/16/16 07:20 Seg Neutrophils % 64.9 % (40.0-70.0) 12/16/16 07:20 Seg Neutrophils # 6.3 K/mm3 (1.8-7.7) 12/16/16 07:20 PT 13.0 Sec. (12.2-14.9) 12/16/16 07:20 INR 0.99 (0.87-1.13) 12/16/16 07:20 APTT 34.7 Sec. (24.2-36.6) 12/16/16 07:20 Sodium 139 mmol/L (137-145) 12/18/16 07:10 Potassium 4.8 mmol/L (3.6-5.0) 12/18/16 07:10 Chloride 97.2 mmol/L (98-107) L 12/18/16 07:10 Carbon Dioxide 27 mmol/L (22-30) 12/18/16 07:10 Anion Gap 20 mmol/L 12/18/16 07:10 BUN 20 mg/dL (9-20) 12/18/16 07:10 Creatinine 1.0 mg/dL (0.8-1.5) 12/18/16 07:10 Estimated GFR > 60 ml/min 12/18/16 07:10 BUN/Creatinine Ratio 20.00 % 12/18/16 07:10 Glucose 110 mg/dL (75-100) H 12/18/16 07:10 POC Glucose 108 (70-105) H 12/18/16 17:20 Lactic Acid 2.1 mmol/L (0.7-2.0) H* 12/16/16 21:48 Calcium 9.7 mg/dL (8.4-10.2) 12/18/16 07:10 Iron 45 ug/dL (49-181) L 12/16/16 11:14 TIBC 333.20 mcg/dL (250-450) 12/16/16 11:14 % Saturation 13.51 % 12/16/16 11:14 Transferrin 238 mg/dl (180-329) 12/16/16 11:14 Total Creatine Kinase 82 units/L (55-170) 12/17/16 05:35 CK-MB (CK-2) 2.7 ng/mL (0.0-4.0) 12/17/16 05:35 CK-MB (CK-2) Rel Index 3.2 (0-4) 12/17/16 05:35 Urine Color Yellow (Yellow) 12/16/16 08:28 Urine Turbidity Turbid (Clear) 12/16/16 08:28 Urine pH 7.0 (5.0-7.0) 12/16/16 08:28 Ur Specific [place] 1.016 (1.003-1.030) 12/16/16 08:28 Urine Protein 30 mg/dl mg/dL (Negative) 12/16/16 08:28 Urine Glucose (UA) Neg mg/dL (Negative) 12/16/16 08:28 Urine Ketones Neg mg/dL (Negative) 12/16/16 08:28 Urine Blood Mod (Negative) 12/16/16 08:28 Urine Nitrite Pos (Negative) 12/16/16 08:28 Urine Bilirubin Neg (Negative) 12/16/16 08:28 Urine Urobilinogen < 2.0 mg/dL (<2.0) 12/16/16 08:28 Ur Leukocyte Esterase Lg (Negative) 12/16/16 08:28 Urine WBC (Auto) > 182.0 /HPF (0.0-6.0) H 12/16/16 08:28 Urine RBC (Auto) 80.0 /HPF (0.0-6.0) 12/16/16 08:28 Urine Bacteria (Auto) 2+ /HPF (Negative) 12/16/16 08:28 Urine WBC Clumps 3+ /HPF 12/16/16 08:28 Amorphous Crystals Few 12/16/16 08:28 Blood Type B POSITIVE 12/16/16 07:20 Antibody Screen Negative 12/16/16 07:20
[2016-12-19] MEDS: PAMELOR PO SCH (22:22)
[2016-12-19] MEDS: LaMICtal PO SCH (22:22)
[2016-12-19] MEDS: FLOMAX PO SCH (22:22)
[2016-12-20] MEDS: ALPHAGAN P 0.15% OU SCH ×2 (02:01→10:54)
[2016-12-20] MEDS: APRESOLINE PO SCH ×3 (05:47→22:58)
[2016-12-20 05:52] LABS: Hematocrit 34.6 % (35.5-45.6); Hemoglobin 11.4 gm/dl (11.8-15.2); Mean Corpuscular HGB Conc 33 % (32-34); Mean Corpuscular Hemoglobin 28 pg (28-32); Mean Corpuscular Volume 84 fl (84-94); Platelet Count 275 K/mm3 (140-440); Red Blood Count 4.13 M/mm3 (3.65-5.03); Red Cell Distribution Width 16.8 % (13.2-15.2)
[2016-12-20 06:12] LABS: BUN/Creatinine Ratio 17.3; Calcium 9.5 mg/dL (8.4-10.2); Chloride 100.5 mmol/L (98-107); Potassium 3.9 mmol/L (3.6-5.0)
[2016-12-20] MEDS: DUONEB 0.5 MG-3 MG/3 ML SOLN IH SCH ×3 (07:42→19:26)
[2016-12-20] MEDS ORDERED: LEVAQUIN PO SCH (10:00)
[2016-12-20] MEDS: HEPARIN SUB-Q SCH ×2 (10:54→22:58)
[2016-12-20] MEDS: BABY ASPIRIN PO SCH (15:56)
[2016-12-20] MEDS: NORVASC PO SCH (15:56)
[2016-12-20] MEDS: HALDOL PO SCH ×2 (15:56→22:58)
[2016-12-20] MEDS: COLACE PO SCH (15:56)
[2016-12-20] MEDS: LOPRESSOR PO SCH (15:56)
--- NOTE | 2016-12-20 17:21 | Progress Note ---
Assessment and Plan Assessment and plan: Patient is a 81-year-old gentleman was a history of coronary artery disease status post CABG in 2005, dementia COPD, hypertension and hyperlipidemia who is being For by family members at home, was noted to have alteration in his mental status. Was therefore brought to the emergency department. Patient has an indwelling Jacobson catheter for urinary retention and BPH. At emergency department she was found to be very cloudy. Urinalysis shows 182 white blood cell with positive nitrites. CT scan of the head was unremarkable. Patient had no fever. History was obtained from emergency room medical record as to was no family member around. Toxic metabolic encephalopathy due to UTI and sepsis. Supportive care, neurochecks Acute kidney injury on chronic kidney disease likely secondary to vasomotor nephropathy versus BPH-score started nursing staff they will attempt to flush out Jacobson. We'll recheck renal function in a.m. We'll hold KEN inhibitor. We' ll give IV fluids. Sepsis secondary to UTI. Continue Levaquin 750 mg IV daily. Supportive care culture appears to be contaminated well reculture- UTI. Levaquin IV. Patient came in with indwelling jacobson catheter from home. Catheter was placed secondary to BPH was placed by urology. If renal function does not improve or reconsult urology to replace catheter as it has not been changed to 5 months. Leukocytosis due to sepsis, UTI. Coronary artery disease s/p CABG. This is stable, no chest pain or shortness of breath. On Aspirin, Lopressor Hypertensive urgency. Blood pressure now stable after adding Hydralazine 50 mg by mouth every 8 hours to Norvasc, Lopressor. Hyperlipidemia Dementia. He is cared for at home by family members DVT prophylaxis with subcutaneous heparin His management discussed with family today they are considering hospice no decision has been made yet. Full CODE STATUS History Interval history: Admitted with fall and confusion, Patient seen and examined this morning in no acute distress Denies any chest pain, nausea, vomiting, diarrhea No fever noted blood pressure controlled No adverse events reported to me by nursing staff Hospitalist Physical - Physical exam Narrative exam: VITAL SIGNS: Reviewed. GENERAL: The patient appeared well nourished and normally developed. On soft restraints Vital signs as documented. HEAD: No signs of head trauma. EYES: Pupils are equal. Extraocular motions intact. EARS: Hearing grossly intact. MOUTH: Oropharynx is normal. NECK: No adenopathy, no JVD. CHEST: Chest with clear breath sounds bilaterally. No wheezes, rales, or rhonchi. CARDIAC: Regular rate and rhythm. S1 and S2, without murmurs, gallops, or rubs. VASCULAR: No Edema. Peripheral pulses normal and equal in all extremities. ABDOMEN: Soft, without detectable tenderness. No sign of distention. No rebound or guarding, and no masses palpated. Bowel Sounds normal. MUSCULOSKELETAL: Good range of motion of all major joints. Extremities without clubbing, cyanosis or edema. NEUROLOGIC EXAM: Alert and oriented x 3. No focal sensory or strength deficits. Speech slow. Follows commands. PSYCHIATRIC: Mood agitated. SKIN: No rash or lesions. - Constitutional Vitals: Temp Pulse Resp BP Pulse Ox 98.6 F 114 H 16 152/70 98 12/20/16 12:00 12/20/16 13:24 12/20/16 13:24 12/20/16 12:00 12/20/16 12:00 General appearance: Present: no acute distress, cachectic Results - Labs CBC & Chem 7: 12/20/16 05:13 12/20/16 05:13 Labs: Laboratory Last Values WBC 13.0 K/mm3 (4.5-11.0) H 12/20/16 05:13 RBC 4.13 M/mm3 (3.65-5.03) 12/20/16 05:13 Hgb 11.4 gm/dl (11.8-15.2) L 12/20/16 05:13 Hct 34.6 % (35.5-45.6) L 12/20/16 05:13 MCV 84 fl (84-94) 12/20/16 05:13 MCH 28 pg (28-32) 12/20/16 05:13 MCHC 33 % (32-34) 12/20/16 05:13 RDW 16.8 % (13.2-15.2) H 12/20/16 05:13 Plt Count 275 K/mm3 (140-440) 12/20/16 05:13 Lymph % (Auto) 19.0 % (13.4-35.0) 12/16/16 07:20 [place] % (Auto) 9.4 % (0.0-7.3) H 12/16/16 07:20 Eos % (Auto) 6.1 % (0.0-4.3) H 12/16/16 07:20 Baso % (Auto) 0.6 % (0.0-1.8) 12/16/16 07:20 Lymph # 1.9 K/mm3 (1.2-5.4) 12/16/16 07:20 [place] # 0.9 K/mm3 (0.0-0.8) H 12/16/16 07:20 Eos # 0.6 K/mm3 (0.0-0.4) H 12/16/16 07:20 Baso # 0.1 K/mm3 (0.0-0.1) 12/16/16 07:20 Seg Neutrophils % 64.9 % (40.0-70.0) 12/16/16 07:20 Seg Neutrophils # 6.3 K/mm3 (1.8-7.7) 12/16/16 07:20 PT 13.0 Sec. (12.2-14.9) 12/16/16 07:20 INR 0.99 (0.87-1.13) 12/16/16 07:20 APTT 34.7 Sec. (24.2-36.6) 12/16/16 07:20 Sodium 140 mmol/L (137-145) 12/20/16 05:13 Potassium 3.9 mmol/L (3.6-5.0) 12/20/16 05:13 Chloride 100.5 mmol/L (98-107) 12/20/16 05:13 Carbon Dioxide 22 mmol/L (22-30) 12/20/16 05:13 Anion Gap 21 mmol/L 12/20/16 05:13 BUN 45 mg/dL (9-20) H 12/20/16 05:13 Creatinine 2.6 mg/dL (0.8-1.5) H D 12/20/16 05:13 Estimated GFR 24 ml/min 12/20/16 05:13 BUN/Creatinine Ratio 17.30 % 12/20/16 05:13 Glucose 130 mg/dL (75-100) H 12/20/16 05:13 POC Glucose 155 (70-105) H 12/20/16 17:02 Lactic Acid 2.1 mmol/L (0.7-2.0) H* 12/16/16 21:48 Calcium 9.5 mg/dL (8.4-10.2) 12/20/16 05:13 Iron 45 ug/dL (49-181) L 12/16/16 11:14 TIBC 333.20 mcg/dL (250-450) 12/16/16 11:14 % Saturation 13.51 % 12/16/16 11:14 Transferrin 238 mg/dl (180-329) 12/16/16 11:14 Total Creatine Kinase 82 units/L (55-170) 12/17/16 05:35 CK-MB (CK-2) 2.7 ng/mL (0.0-4.0) 12/17/16 05:35 CK-MB (CK-2) Rel Index 3.2 (0-4) 12/17/16 05:35 Urine Color Yellow (Yellow) 12/16/16 08:28 Urine Turbidity Turbid (Clear) 12/16/16 08:28 Urine pH 7.0 (5.0-7.0) 12/16/16 08:28 Ur Specific [place] 1.016 (1.003-1.030) 12/16/16 08:28 Urine Protein 30 mg/dl mg/dL (Negative) 12/16/16 08:28 Urine Glucose (UA) Neg mg/dL (Negative) 12/16/16 08:28 Urine Ketones Neg mg/dL (Negative) 12/16/16 08:28 Urine Blood Mod (Negative) 12/16/16 08:28 Urine Nitrite Pos (Negative) 12/16/16 08:28 Urine Bilirubin Neg (Negative) 12/16/16 08:28 Urine Urobilinogen < 2.0 mg/dL (<2.0) 12/16/16 08:28 Ur Leukocyte Esterase Lg (Negative) 12/16/16 08:28 Urine WBC (Auto) > 182.0 /HPF (0.0-6.0) H 12/16/16 08:28 Urine RBC (Auto) 80.0 /HPF (0.0-6.0) 12/16/16 08:28 Urine Bacteria (Auto) 2+ /HPF (Negative) 12/16/16 08:28 Urine WBC Clumps 3+ /HPF 12/16/16 08:28 Amorphous Crystals Few 12/16/16 08:28 Blood Type B POSITIVE 12/16/16 07:20 Antibody Screen Negative 12/16/16 07:20
[2016-12-20 17:27] LABS: Bacteria,Urine 1+ /HPF (Negative); Mucus,Urine 1+ /HPF; Sperm,Urine FEW /HPF (NP)
[2016-12-20 17:30] LABS: Bilirubin,Urine NEG (Negative); Blood,Urine MOD (Negative); Ketones,Urine NEG (Negative); Leukocyte Esterase,Urine LG (Negative); Nitrite,Urine NEG (Negative); Urobilinogen,Urine < 2.0 mg/dL (<2.0)
[2016-12-20 21:25] LABS: Calcium 9.4 mg/dL (8.4-10.2); Chloride 97.7 mmol/L (98-107); Potassium 3.5 mmol/L (3.6-5.0)
[2016-12-20] MEDS: NACL 0.9% 1000 ML 1,000 ML IV SCH (22:54)
[2016-12-20] MEDS: PAMELOR PO SCH (22:58)
[2016-12-20] MEDS: LaMICtal PO SCH ×2 (22:58→23:30)
[2016-12-20] MEDS: FLOMAX PO SCH (22:58)
[2016-12-21] MEDS: ALPHAGAN P 0.15% OU SCH ×5 (01:55→23:50)
[2016-12-21] MEDS: APRESOLINE PO SCH ×4 (05:49→22:10)
[2016-12-21 07:22] LABS: Hematocrit 34.9 % (35.5-45.6); Hemoglobin 11.4 gm/dl (11.8-15.2); Mean Corpuscular HGB Conc 33 % (32-34); Mean Corpuscular Hemoglobin 28 pg (28-32); Mean Corpuscular Volume 86 fl (84-94); Platelet Count 296 K/mm3 (140-440); Red Blood Count 4.09 M/mm3 (3.65-5.03); Red Cell Distribution Width 16.7 % (13.2-15.2)
[2016-12-21 07:30] LABS: White Blood Count 20.7 K/mm3 (4.5-11.0)
[2016-12-21 07:39] LABS: BUN/Creatinine Ratio 29.5; Calcium 9.1 mg/dL (8.4-10.2); Chloride 101.8 mmol/L (98-107); Potassium 3.7 mmol/L (3.6-5.0)
[2016-12-21] MEDS: DUONEB 0.5 MG-3 MG/3 ML SOLN IH SCH ×3 (08:36→20:02)
[2016-12-21] MEDS: LOPRESSOR PO SCH (11:19)
[2016-12-21] MEDS: BABY ASPIRIN PO SCH (11:19)
[2016-12-21] MEDS: HALDOL PO SCH ×3 (11:19→22:11)
[2016-12-21] MEDS: COLACE PO SCH (11:19)
[2016-12-21] MEDS: NORVASC PO SCH (11:20)
--- NOTE | 2016-12-21 14:46 | Fluoroscopy Report ---
MODIFIED BARIUM SWALLOW: A modified barium swallow was performed with the aid of the speech pathologist. Fluoroscopic observation with multiple consistencies of barium was performed. Please see speech pathologist's notes for impression.
--- NOTE | 2016-12-21 16:11 | Progress Note ---
Assessment and Plan Assessment and plan: Patient is a 81-year-old gentleman was a history of coronary artery disease status post CABG in 2006, dementia COPD, hypertension and hyperlipidemia who is being For by family members at home, was noted to have alteration in his mental status. Was therefore brought to the emergency department. Patient has an indwelling Jacobson catheter for urinary retention and BPH. At emergency department she was found to be very cloudy. Urinalysis shows 182 white blood cell with positive nitrites. CT scan of the head was unremarkable. Patient had no fever. History was obtained from emergency room medical record as to was no family member around. Toxic metabolic encephalopathy due to UTI and sepsis. Supportive care, neurochecks, continue antibiotics were changed to Zosyn for broader coverage Acute kidney injury on chronic kidney disease likely secondary to vasomotor nephropathy versus BPH-score started nursing staff they will attempt to flush out Jacobson. We'll recheck renal function in a.m. today to hold KEN inhibitor. I did speak with urologist for Jacobson catheter exchange. Sepsis secondary to UTI. Discontinue Levaquin changed to Zosyn for broader coverage. Supportive care culture appears to be contaminated well reculture- UTI. Continue Zosyn. Patient came in with indwelling jacobson catheter from home. Catheter was placed secondary to BPH was placed by urology. Leukocytosis due to sepsis, UTI. Coronary artery disease s/p CABG. This is stable, no chest pain or shortness of breath. On Aspirin, Lopressor Hypertensive urgency. Blood pressure now stable after adding Hydralazine 50 mg by mouth every 8 hours to Norvasc, Lopressor. Hyperlipidemia Dementia. He is cared for at home by family members DVT prophylaxis with subcutaneous heparin His management discussed with family today they are considering hospice no decision has been made yet. Full CODE STATUS History Interval history: Admitted with fall and confusion, Patient seen and examined this morning in no acute distress-remains confused Denies any chest pain, nausea, vomiting, diarrhea No fever noted blood pressure controlled No adverse events reported to me by nursing staff Hospitalist Physical - Physical exam Narrative exam: VITAL SIGNS: Reviewed. GENERAL: The patient appeared well nourished and normally developed. On soft restraints. Vital signs as documented. HEAD: No signs of head trauma. EYES: Pupils are equal. Extraocular motions intact. EARS: Hearing grossly intact. MOUTH: Oropharynx is normal. NECK: No adenopathy, no JVD. CHEST: Chest with clear breath sounds bilaterally. No wheezes, rales, or rhonchi. CARDIAC: Regular rate and rhythm. S1 and S2, without murmurs, gallops, or rubs. VASCULAR: No Edema. Peripheral pulses normal and equal in all extremities. ABDOMEN: Soft, without detectable tenderness. No sign of distention. No rebound or guarding, and no masses palpated. Bowel Sounds normal. MUSCULOSKELETAL: Good range of motion of all major joints. Extremities without clubbing, cyanosis or edema. NEUROLOGIC EXAM: Alert and oriented x 3. But intermittently confused No focal sensory or strength deficits. Speech slow. Follows commands. PSYCHIATRIC: Mood agitated. SKIN: No rash or lesions. - Constitutional Vitals: Temp Pulse Resp BP Pulse Ox 98.8 F 67 18 117/55 97 12/21/16 14:52 12/21/16 09:02 12/21/16 14:52 12/21/16 14:52 12/21/16 14:52 General appearance: Present: no acute distress, cachectic Results - Labs CBC & Chem 7: 12/21/16 05:24 12/21/16 05:24 Labs: Laboratory Last Values WBC 20.7 K/mm3 (4.5-11.0) H 12/21/16 05:24 RBC 4.09 M/mm3 (3.65-5.03) 12/21/16 05:24 Hgb 11.4 gm/dl (11.8-15.2) L 12/21/16 05:24 Hct 34.9 % (35.5-45.6) L 12/21/16 05:24 MCV 86 fl (84-94) 12/21/16 05:24 MCH 28 pg (28-32) 12/21/16 05:24 MCHC 33 % (32-34) 12/21/16 05:24 RDW 16.7 % (13.2-15.2) H 12/21/16 05:24 Plt Count 296 K/mm3 (140-440) 12/21/16 05:24 Lymph % (Auto) 19.0 % (13.4-35.0) 12/16/16 07:20 [place] % (Auto) 9.4 % (0.0-7.3) H 12/16/16 07:20 Eos % (Auto) 6.1 % (0.0-4.3) H 12/16/16 07:20 Baso % (Auto) 0.6 % (0.0-1.8) 12/16/16 07:20 Lymph # 1.9 K/mm3 (1.2-5.4) 12/16/16 07:20 [place] # 0.9 K/mm3 (0.0-0.8) H 12/16/16 07:20 Eos # 0.6 K/mm3 (0.0-0.4) H 12/16/16 07:20 Baso # 0.1 K/mm3 (0.0-0.1) 12/16/16 07:20 Seg Neutrophils % 64.9 % (40.0-70.0) 12/16/16 07:20 Seg Neutrophils # 6.3 K/mm3 (1.8-7.7) 12/16/16 07:20 PT 13.0 Sec. (12.2-14.9) 12/16/16 07:20 INR 0.99 (0.87-1.13) 12/16/16 07:20 APTT 34.7 Sec. (24.2-36.6) 12/16/16 07:20 Sodium 144 mmol/L (137-145) 12/21/16 05:24 Potassium 3.7 mmol/L (3.6-5.0) 12/21/16 05:24 Chloride 101.8 mmol/L (98-107) 12/21/16 05:24 Carbon Dioxide 22 mmol/L (22-30) 12/21/16 05:24 Anion Gap 24 mmol/L 12/21/16 05:24 BUN 59 mg/dL (9-20) H 12/21/16 05:24 Creatinine 2.0 mg/dL (0.8-1.5) H 12/21/16 05:24 Estimated GFR 32 ml/min 12/21/16 05:24 BUN/Creatinine Ratio 29.50 % 12/21/16 05:24 Glucose 139 mg/dL (75-100) H 12/21/16 05:24 POC Glucose 140 (70-105) H 12/20/16 21:19 Lactic Acid 2.1 mmol/L (0.7-2.0) H* 03/17/17 21:48 Calcium 9.1 mg/dL (8.4-10.2) 12/21/16 05:24 Iron 45 ug/dL (49-181) L 12/16/16 11:14 TIBC 333.20 mcg/dL (250-450) 12/16/16 11:14 % Saturation 13.51 % 12/16/16 11:14 Transferrin 238 mg/dl (180-329) 12/16/16 11:14 Total Creatine Kinase 82 units/L (55-170) 12/17/16 05:35 CK-MB (CK-2) 2.7 ng/mL (0.0-4.0) 12/17/16 05:35 CK-MB (CK-2) Rel Index 3.2 (0-4) 12/17/16 05:35 Urine Color Yellow (Yellow) 12/20/16 Unknown Urine Turbidity Cloudy (Clear) 12/20/16 Unknown Urine pH 5.0 (5.0-7.0) 12/20/16 Unknown Ur Specific [place] 1.012 (1.003-1.030) 12/20/16 Unknown Urine Protein 30 mg/dl mg/dL (Negative) 12/20/16 Unknown Urine Glucose (UA) Neg mg/dL (Negative) 12/20/16 Unknown Urine Ketones Neg mg/dL (Negative) 12/20/16 Unknown Urine Blood Mod (Negative) 12/20/16 Unknown Urine Nitrite Neg (Negative) 12/20/16 Unknown Ur Reducing Substances Not Reportable 12/20/16 Unknown Urine Bilirubin Neg (Negative) 12/20/16 Unknown Urine Ictotest Not Reportable 12/20/16 Unknown Urine Urobilinogen < 2.0 mg/dL (<2.0) 12/20/16 Unknown Ur Leukocyte Esterase Lg (Negative) 12/20/16 Unknown Urine WBC (Auto) 181.0 /HPF (0.0-6.0) H 12/20/16 Unknown Urine RBC (Auto) 44.0 /HPF (0.0-6.0) 12/20/16 Unknown U Epithel Cells (Auto) 1.0 /HPF (0-13.0) 12/20/16 Unknown Urine Bacteria (Auto) 1+ /HPF (Negative) 12/20/16 Unknown Urine WBC Clumps 2+ /HPF 12/20/16 Unknown Amorphous Crystals Few 12/16/16 08:28 Hyaline Casts 2 /LPF 12/20/16 Unknown Urine Mucus 1+ /HPF 12/20/16 Unknown Urine Yeast (Budding) 3+ /HPF 12/20/16 Unknown Urine Sperm Few /HPF (DYNA[employer] REPAIRER) 12/20/16 Unknown Blood Type B POSITIVE 12/16/16 07:20 Antibody Screen Negative 12/16/16 07:20 - Imaging and Cardiology Imaging and Cardiology: Renal ultrasound.
[2016-12-21] MEDS: ZOSYN/NS 4.5GM/100ML 4.5 GM/100 ML VIAL IV SCH ×3 (16:55→21:43)
[2016-12-21] MEDS: NACL 0.9% 1000 ML 1,000 ML IV SCH (16:57)
--- NOTE | 2016-12-21 19:46 | Consultation ---
History of Present Illness - Reason for Consult Consult date: 12/21/16 Past History Past Medical History: CAD, COPD, hypertension, hyperlipidemia, other (dementia) Past Surgical History: CABG Social history: denies: smoking, alcohol abuse, prescription drug abuse, IV drug use Family history: no significant family history Medications and Allergies Allergies Allergy/AdvReac Type Severity Reaction Status Date / Time cefuroxime axetil Allergy Hives Verified 11/27/14 13:21 [From Ceftin] tetracycline Allergy Unknown Verified 11/27/14 13:22 Home Medications Medication Instructions Recorded Confirmed Last Taken Type Albuterol Sulfate [Proventil HFA] 1 - 2 puff IH Q4H PRN 11/27/14 12/17/16 21:00 History Aspirin [Aspirin BABY CHEW TAB] 81 mg PO QDAY 11/27/14 12/17/16 12/16/16 08:00 History Docusate Sodium [Colace CAP] 100 mg PO DAILY 11/27/14 12/17/16 12/16/16 08:00 History Duloxetine HCl [DULoxetine] 60 mg PO DAILY 11/27/14 12/17/16 12/16/16 08:00 History Haloperidol 0.5 mg PO BID 11/27/14 12/17/16 12/16/16 08:00 History Metoprolol [Lopressor TAB] 25 mg PO DAILY 11/27/14 12/17/16 11/30/16 08:00 History Nortriptyline [Pamelor] 10 mg PO HS 11/27/14 12/17/16 12/16/16 21:00 History lamoTRIgine [LaMICtal] 100 mg PO HS 11/27/14 12/17/16 12/16/16 21:00 History Tamsulosin [Flomax] 0.4 mg PO HS 06/14/16 12/17/16 12/16/16 21:00 History Ipratropium/Albuterol Sulfate 1 ampul IH TIDRT ampul.neb 06/21/16 12/17/16 Unknown Rx [Duoneb 0.5 mg-3 mg/3 ml Soln] LORazepam [Ativan] 0.5 mg PO DAILY #5 tablet 06/21/16 12/17/16 12/16/16 21:00 Rx amLODIPine [Norvasc] 10 mg PO QDAY 09/12/16 12/17/16 11/30/16 08:00 History Brimonidine 0.15% [Alphagan P 1 drops OP Q8H 09/16/16 12/17/16 11/30/16 08:00 History 0.15%] Lisinopril [Zestril TAB] 5 mg PO BID 09/16/16 12/17/16 11/30/16 08:00 History Methylphenidate HCl [Ritalin] 2.5 mg PO DAILY 09/16/16 12/17/16 12/16/16 08:00 History Levofloxacin [Levaquin TAB] 500 mg PO QDAY #7 tablet 09/19/16 12/17/16 11/30/16 08:00 Rx Nitrofurantoin [place]/M-Cryst 100 mg PO Q12HR #20 capsule 09/25/16 12/17/16 08:00 Rx [Macrobid CAP] Active Meds: Active Medications Albuterol/Ipratropium (Duoneb 0.5 Mg-3 Mg/3 Ml Soln) 1 ampul IH TIDRT [facility] Last Admin: 12/21/16 15:11 Dose: 1 ampul Amlodipine Besylate (Norvasc) 10 mg PO DAILY [facility] Last Admin: 12/21/16 11:20 Dose: Not Given Aspirin (Baby Aspirin) 81 mg PO QDAY [facility] Last Admin: 12/21/16 11:19 Dose: Not Given Brimonidine Tartrate (Alphagan P 0.15%) 1 drops OU Q8H [facility] Last Admin: 12/21/16 11:20 Dose: Not Given Docusate Sodium (Colace) 100 mg PO DAILY [facility] Last Admin: 12/21/16 11:19 Dose: Not Given Haloperidol (Haldol) 0.5 mg PO BID [facility] Last Admin: 12/21/16 11:19 Dose: Not Given Heparin Sodium (Porcine) (Heparin) 5,000 unit SUB-Q Q12HR [facility] Last Admin: 12/20/16 22:58 Dose: 5,000 unit Hydralazine HCl (Apresoline) 10 mg IV Q6HR PRN PRN Reason: HTN SYS>160 Last Admin: 12/18/16 18:08 Dose: 10 mg Hydralazine HCl (Apresoline) 50 mg PO Q8HR [facility] Last Admin: 12/21/16 13:50 Dose: Not Given Sodium Chloride (Nacl 0.9% 1000 Ml) 1,000 mls @ 75 mls/hr IV DIRECT [facility] Last Admin: 12/21/16 16:57 Dose: 75 mls/hr Piperacillin Sod/Tazobactam Sod (Zosyn/Ns 4.5gm/100ml) 4.5 gm in 100 mls @ 200 mls/hr IV Q8HR [facility] PRN Reason: Protocol Last Admin: 12/21/16 17:18 Dose: Not Given Lamotrigine (Lamictal) 100 mg PO HS [facility] Last Admin: 12/20/16 22:58 Dose: Not Given Methylphenidate HCl (Ritalin) 2.5 mg PO DAILY [facility] Last Admin: 12/21/16 11:20 Dose: Not Given Metoprolol Tartrate (Lopressor) 25 mg PO DAILY [facility] Last Admin: 12/21/16 11:19 Dose: Not Given Nortriptyline HCl (Pamelor) 10 mg PO [facility] Last Admin: 12/20/16 22:58 Dose: Not Given Tamsulosin HCl (Flomax) 0.4 mg PO HS [facility] Last Admin: 12/20/16 22:58 Dose: Not Given Exam - Constitutional Vitals: Temp Pulse Resp BP Pulse Ox 98.2 F 90 18 171/71 100 12/21/16 18:33 12/21/16 18:33 12/21/16 18:33 12/21/16 18:33 12/21/16 18:33 Results - Labs CBC & Chem 7: 12/21/16 05:24 12/21/16 05:24 Labs: Abnormal lab results 12/20/16 12/20/16 12/21/16 Range/Units 20:46 21:19 05:24 WBC 20.7 H (4.5-11.0) K/mm3 Hgb 11.4 L (11.8-15.2) gm/dl Hct 34.9 L (35.5-45.6) % RDW 16.7 H (13.2-15.2) % Potassium 3.5 L (3.6-5.0) mmol/L Chloride 97.7 L (98-107) mmol/L Carbon Dioxide 21 L (22-30) mmol/L BUN 52 H (9-20) mg/dL Creatinine 2.6 H (0.8-1.5) mg/dL Glucose 135 H (75-100) mg/dL POC Glucose 140 H (70-105) 12/21/16 12/21/16 12/21/16 Range/Units 05:24 08:21 13:14 WBC (4.5-11.0) K/mm3 Hgb (11.8-15.2) gm/dl Hct (35.5-45.6) % RDW (13.2-15.2) % Potassium (3.6-5.0) mmol/L Chloride (98-107) mmol/L Carbon Dioxide (22-30) mmol/L BUN 59 H (9-20) mg/dL Creatinine 2.0 H (0.8-1.5) mg/dL Glucose 139 H (75-100) mg/dL POC Glucose 137 H 135 H (70-105) Assessment and Plan URINARY RETENTION - pt see approx 12 pm - unable to give history - report not changed x5m - Amaral changed by me 16fr - pt restraints unable to give history - JUAN ANTONIO not coop - exam mild ventral erosion - f/u outpt 1 month
[2016-12-21] MEDS: HEPARIN SUB-Q SCH ×2 (19:57→21:44)
[2016-12-21] MEDS: LaMICtal PO SCH ×2 (21:45→22:11)
[2016-12-21] MEDS: PAMELOR PO SCH (21:45)
[2016-12-21] MEDS: FLOMAX PO SCH ×2 (21:45→22:11)
[2016-12-22] MEDS: APRESOLINE IV PRN (01:12)
[2016-12-22] MEDS: ALPHAGAN P 0.15% OU SCH ×2 (01:13→11:10)
[2016-12-22 05:43] LABS: Hematocrit 31.7 % (35.5-45.6); Hemoglobin 10.4 gm/dl (11.8-15.2); Mean Corpuscular HGB Conc 33 % (32-34); Mean Corpuscular Hemoglobin 28 pg (28-32); Mean Corpuscular Volume 84 fl (84-94); Platelet Count 242 K/mm3 (140-440); Red Blood Count 3.76 M/mm3 (3.65-5.03); Red Cell Distribution Width 16.6 % (13.2-15.2); White Blood Count 15.6 K/mm3 (4.5-11.0)
[2016-12-22] MEDS: ZOSYN/NS 4.5GM/100ML 4.5 GM/100 ML VIAL IV SCH ×3 (06:00→21:06)
[2016-12-22] MEDS: APRESOLINE PO SCH ×3 (06:04→21:04)
[2016-12-22 06:08] LABS: BUN/Creatinine Ratio 35.29; Calcium 8.6 mg/dL (8.4-10.2); Chloride 105.8 mmol/L (98-107); Potassium 3.1 mmol/L (3.6-5.0)
--- NOTE | 2016-12-22 08:29 | Discharge Summary ---
Providers - Providers Date of Admission: 12/16/16 09:15 Date of discharge: 12/22/16 Attending physician: GEORGE ROLLINS MD 12/16/16 09:20 Consult to Physician [CONS] Routine Consulting Provider: ALDEN KAHN Reason For Exam: GI BLEED Place consult to:: Dr. Gee Notified:: PLEASE CALL MD IN AM Was contact made?: Yes Comment:: said to place patient on list 12/19/16 12:33 Speech Therapy Evaluation and Treat [CONS] Routine Reason For Exam: failed bedside swallow eval 12/21/16 11:03 Consult to Physician [CONS] Routine Consulting Provider: LAURA DAMON Reason For Exam: BPH, jacobson exchange Place consult to:: urol Notified:: office Was contact made?: Yes If yes, spoke with:: foreign Time called:: 11:10 Comment:: spoke w/ Primary care physician: FEE CLERK Hospitalization Condition: Stable Disposition: DC/[place] SNF W [facility] Time spent for discharge: 35 mins Core Measure Documentation - Palliative Care Palliative Care/ Comfort Measures: Not Applicable - Core Measures Any of the following diagnoses?: none - VTE Discharge Requirements Deep Vein Thrombosis/Pulmonary Embolism Present on Admission: No Exam - Constitutional Vitals: Temp Pulse Resp BP Pulse Ox 98.7 F 102 H 24 137/63 98 12/22/16 04:51 12/22/16 04:51 12/22/16 04:51 12/22/16 04:51 12/22/16 04:51 Plan Activity: advance as tolerated, fall precautions Diet: low fat, advance as tolerated Special Instructions: physical therapy, occupational therapy Additional Instructions: CHeck creatnine IN 3 DAYS Follow up with: DELL MICHELLE MD [Primary Care Provider] - 3-5 Days MEGAN WILDER MD [Referring] - 7 Days Prescriptions: Ampicillin [Polycillin] 500 mg PO Q6H #20 capsule Haloperidol 0.5 mg PO BID #30 tablet hydrALAZINE [Apresoline TAB] 50 mg PO Q8HR #30 tablet lamoTRIgine [LaMICtal] 100 mg PO HS #30 tablet LORazepam [Ativan] 0.5 mg PO DAILY #5 tablet Methylphenidate [Ritalin] 2.5 mg PO DAILY #30 tablet Nitrofurantoin [place]/M-Cryst [Macrobid CAP] 100 mg PO Q12HR #20 capsule
[2016-12-22] MEDS: DUONEB 0.5 MG-3 MG/3 ML SOLN IH SCH ×3 (08:59→19:27)
--- NOTE | 2016-12-22 10:13 | Ultrasound Report ---
Renal sonogram: History: Hydronephrosis. Findings: Right kidney 10.3 x 4.8 x 4.8 cm. Cortical thickness 1.1 cm. Cyst in the upper pole measures 1 x 0.8 x 0.7 cm. Cyst at the midpole measures 1.1 x 0.8 x 1 cm. Cyst in the lower pole measure 3.5 x 2.9 x 2.6 cm. Left kidney measures 12.3 x 5 x 5.7 cm. Cortical thickness 2 cm. Impression: No evidence of hydronephrosis. Multiple cysts right kidney.
[2016-12-22] MEDS: HEPARIN SUB-Q SCH ×2 (10:26→21:03)
[2016-12-22] MEDS: BABY ASPIRIN PO SCH (11:10)
[2016-12-22] MEDS: HALDOL PO SCH ×2 (11:10→21:04)
[2016-12-22] MEDS: LOPRESSOR PO SCH (11:11)
[2016-12-22] MEDS: NORVASC PO SCH (11:11)
[2016-12-22] MEDS: COLACE PO SCH (11:11)
--- NOTE | 2016-12-22 17:15 | Progress Note ---
Assessment and Plan Assessment and plan: Patient is a 81-year-old gentleman was a history of coronary artery disease status post CABG in 2005, dementia COPD, hypertension and hyperlipidemia who is being For by family members at home, was noted to have alteration in his mental status. Was therefore brought to the emergency department. Patient has an indwelling Jacobson catheter for urinary retention and BPH. At emergency department she was found to be very cloudy. Urinalysis shows 182 white blood cell with positive nitrites. CT scan of the head was unremarkable. Patient had no fever. History was obtained from emergency room medical record as to was no family member around. I did discuss with the daughter who informs me that the patient has been not ambulatory for about 6 months. Has had multiple hospitalizations due to recurrent urinary tract infection. Also has been unsteady in the past 5-6 months sustaining multiple falls. Toxic metabolic encephalopathy due to UTI and sepsis. Supportive care, neurochecks, continue antibiotics were changed to Zosyn for broader coverage Acute kidney injury on chronic kidney disease likely secondary to vasomotor nephropathy versus BPH-score started nursing staff they will attempt to flush out Jacobson. We'll recheck renal function in a.m. today to hold KEN inhibitor. I did speak with urologist for Jacobson catheter exchange. Sepsis secondary to UTI. Discontinue Levaquin changed to Zosyn for broader coverage. Supportive care culture appears to be contaminated well reculture- UTI. Continue Zosyn. Patient came in with indwelling jacobson catheter from home. Catheter was placed secondary to BPH was placed by urology. Leukocytosis due to sepsis, UTI. Coronary artery disease s/p CABG. This is stable, no chest pain or shortness of breath. On Aspirin, Lopressor Hypertensive urgency. Blood pressure now stable after adding Hydralazine 50 mg by mouth every 8 hours to Norvasc, Lopressor. Hyperlipidemia Protein calorie malnutrition-BMI 19.9-patient failed swallow eval today To nothing by mouth. Family discussing next options. I understand patient has a living will and family is reviewing to see what next. Dementia. He is cared for at home by family members Failure to thrive-ongoing in the past 6 months gradual decline per Family DVT prophylaxis with subcutaneous heparin His management discussed with family today they are considering hospice no decision has been made yet. Full CODE STATUS History Interval history: Admitted with fall and confusion, Patient seen and examined this morning in no acute distress-remains confused Denies any chest pain, nausea, vomiting, diarrhea No fever noted blood pressure controlled No adverse events reported to me by nursing staff Hospitalist Physical - Physical exam Narrative exam: VITAL SIGNS: Reviewed. GENERAL: The patient appeared well nourished and normally developed. On soft restraints. Vital signs as documented. HEAD: No signs of head trauma. EYES: Pupils are equal. Extraocular motions intact. EARS: Hearing grossly intact. MOUTH: Oropharynx is normal. NECK: No adenopathy, no JVD. CHEST: Chest with clear breath sounds bilaterally. No wheezes, rales, or rhonchi. CARDIAC: Regular rate and rhythm. S1 and S2, without murmurs, gallops, or rubs. VASCULAR: No Edema. Peripheral pulses normal and equal in all extremities. ABDOMEN: Soft, without detectable tenderness. No sign of distention. No rebound or guarding, and no masses palpated. Bowel Sounds normal. MUSCULOSKELETAL: Good range of motion of all major joints. Extremities without clubbing, cyanosis or edema. NEUROLOGIC EXAM: Alert and oriented x 1. intermittently confused No focal sensory or strength deficits. Speech slow. Follows commands. PSYCHIATRIC: Mood agitated. SKIN: No rash or lesions. - Constitutional Vitals: Temp Pulse Resp BP Pulse Ox 99.0 F 75 20 108/55 95 12/22/16 14:12 12/22/16 14:50 12/22/16 14:50 12/22/16 14:12 12/22/16 14:12 General appearance: Present: no acute distress, cachectic Results - Labs CBC & Chem 7: 12/22/16 04:44 12/22/16 04:44 Labs: Laboratory Last Values WBC 15.6 K/mm3 (4.5-11.0) H 12/22/16 04:44 RBC 3.76 M/mm3 (3.65-5.03) 12/22/16 04:44 Hgb 10.4 gm/dl (11.8-15.2) L 12/22/16 04:44 Hct 31.7 % (35.5-45.6) L 12/22/16 04:44 MCV 84 fl (84-94) 12/22/16 04:44 MCH 28 pg (28-32) 12/22/16 04:44 MCHC 33 % (32-34) 12/22/16 04:44 RDW 16.6 % (13.2-15.2) H 12/22/16 04:44 Plt Count 242 K/mm3 (140-440) 12/22/16 04:44 Lymph % (Auto) 19.0 % (13.4-35.0) 12/16/16 07:20 [place] % (Auto) 9.4 % (0.0-7.3) H 12/16/16 07:20 Eos % (Auto) 6.1 % (0.0-4.3) H 12/16/16 07:20 Baso % (Auto) 0.6 % (0.0-1.8) 12/16/16 07:20 Lymph # 1.9 K/mm3 (1.2-5.4) 12/16/16 07:20 [place] # 0.9 K/mm3 (0.0-0.8) H 12/16/16 07:20 Eos # 0.6 K/mm3 (0.0-0.4) H 12/16/16 07:20 Baso # 0.1 K/mm3 (0.0-0.1) 12/16/16 07:20 Seg Neutrophils % 64.9 % (40.0-70.0) 12/16/16 07:20 Seg Neutrophils # 6.3 K/mm3 (1.8-7.7) 12/16/16 07:20 PT 13.0 Sec. (12.2-14.9) 12/16/16 07:20 INR 0.99 (0.87-1.13) 12/16/16 07:20 APTT 34.7 Sec. (24.2-36.6) 12/16/16 07:20 Sodium 140 mmol/L (137-145) 12/22/16 04:44 Potassium 3.1 mmol/L (3.6-5.0) L 12/22/16 04:44 Chloride 105.8 mmol/L (98-107) 12/22/16 04:44 Carbon Dioxide 22 mmol/L (22-30) 12/22/16 04:44 Anion Gap 15 mmol/L 12/22/16 04:44 BUN 60 mg/dL (9-20) H 12/22/16 04:44 Creatinine 1.7 mg/dL (0.8-1.5) H 12/22/16 04:44 Estimated GFR 39 ml/min 12/22/16 04:44 BUN/Creatinine Ratio 35.29 % 12/22/16 04:44 Glucose 158 mg/dL (75-100) H 12/22/16 04:44 POC Glucose 143 (70-105) H 12/22/16 11:42 Lactic Acid 2.1 mmol/L (0.7-2.0) H* 12/16/16 21:48 Calcium 8.6 mg/dL (8.4-10.2) 12/22/16 04:44 Iron 45 ug/dL (49-181) L 12/16/16 11:14 TIBC 333.20 mcg/dL (250-450) 12/16/16 11:14 % Saturation 13.51 % 12/16/16 11:14 Transferrin 238 mg/dl (180-329) 12/16/16 11:14 Total Creatine Kinase 82 units/L (55-170) 12/17/16 05:35 CK-MB (CK-2) 2.7 ng/mL (0.0-4.0) 12/17/16 05:35 CK-MB (CK-2) Rel Index 3.2 (0-4) 12/17/16 05:35 Urine Color Yellow (Yellow) 12/20/16 Unknown Urine Turbidity Cloudy (Clear) 12/20/16 Unknown Urine pH 5.0 (5.0-7.0) 12/20/16 Unknown Ur Specific [place] 1.012 (1.003-1.030) 12/20/16 Unknown Urine Protein 30 mg/dl mg/dL (Negative) 12/20/16 Unknown Urine Glucose (UA) Neg mg/dL (Negative) 12/20/16 Unknown Urine Ketones Neg mg/dL (Negative) 12/20/16 Unknown Urine Blood Mod (Negative) 12/20/16 Unknown Urine Nitrite Neg (Negative) 12/20/16 Unknown Ur Reducing Substances Not Reportable 12/20/16 Unknown Urine Bilirubin Neg (Negative) 12/20/16 Unknown Urine Ictotest Not Reportable 12/20/16 Unknown Urine Urobilinogen < 2.0 mg/dL (<2.0) 12/20/16 Unknown Ur Leukocyte Esterase Lg (Negative) 12/20/16 Unknown Urine WBC (Auto) 181.0 /HPF (0.0-6.0) H 12/20/16 Unknown Urine RBC (Auto) 44.0 /HPF (0.0-6.0) 12/20/16 Unknown U Epithel Cells (Auto) 1.0 /HPF (0-13.0) 12/20/16 Unknown Urine Bacteria (Auto) 1+ /HPF (Negative) 12/20/16 Unknown Urine WBC Clumps 2+ /HPF 12/20/16 Unknown Amorphous Crystals Few 12/16/16 08:28 Hyaline Casts 2 /LPF 12/20/16 Unknown Urine Mucus 1+ /HPF 12/20/16 Unknown Urine Yeast (Budding) 3+ /HPF 12/20/16 Unknown Urine Sperm Few /HPF (PERFORMANCE IMPROVEMENT ANALYST) 12/20/16 Unknown Blood Type B POSITIVE 12/16/16 07:20 Antibody Screen Negative 12/16/16 07:20
[2016-12-22] MEDS: KCL 10MEQ/100ML 10 MEQ/100 ML BAG IV SCH ×2 (20:58→22:44)
[2016-12-22] MEDS: PAMELOR PO SCH (21:00)
[2016-12-22] MEDS: FLOMAX PO SCH (21:01)
[2016-12-22] MEDS: LaMICtal PO SCH (21:01)
[2016-12-23] MEDS: KCL 10MEQ/100ML 10 MEQ/100 ML BAG IV SCH ×2 (00:11→01:39)
[2016-12-23] MEDS: ALPHAGAN P 0.15% OU SCH ×4 (01:40→17:31)
[2016-12-23 05:50] LABS: Hematocrit 33.1 % (35.5-45.6); Hemoglobin 10.7 gm/dl (11.8-15.2); Mean Corpuscular HGB Conc 32 % (32-34); Mean Corpuscular Hemoglobin 28 pg (28-32); Mean Corpuscular Volume 86 fl (84-94); Platelet Count 236 K/mm3 (140-440); Red Blood Count 3.86 M/mm3 (3.65-5.03); Red Cell Distribution Width 16.9 % (13.2-15.2); White Blood Count 13.9 K/mm3 (4.5-11.0)
[2016-12-23] MEDS: ZOSYN/NS 4.5GM/100ML 4.5 GM/100 ML VIAL IV SCH ×4 (06:29→21:59)
[2016-12-23] MEDS: APRESOLINE PO SCH ×3 (06:30→22:01)
[2016-12-23 06:38] LABS: Anion Gap 18 mmol/L; BUN/Creatinine Ratio 42.72; Blood Urea Nitrogen 47 mg/dL (9-20); Calcium 8.9 mg/dL (8.4-10.2); Carbon Dioxide 20 mmol/L (22-30); Chloride 109.5 mmol/L (98-107); Glucose 100 mg/dL (75-100); Potassium 3.5 mmol/L (3.6-5.0); Sodium 144 mmol/L (137-145)
[2016-12-23] MEDS: HEPARIN SUB-Q SCH ×3 (07:34→22:00)
[2016-12-23] MEDS: DUONEB 0.5 MG-3 MG/3 ML SOLN IH SCH ×3 (10:21→20:00)
[2016-12-23] MEDS: COLACE PO SCH (10:51)
[2016-12-23] MEDS: LOPRESSOR PO SCH (10:51)
[2016-12-23] MEDS: BABY ASPIRIN PO SCH (10:51)
[2016-12-23] MEDS: NORVASC PO SCH (10:51)
[2016-12-23] MEDS: HALDOL PO SCH ×2 (10:51→22:02)
--- NOTE | 2016-12-23 12:03 | XRay Report ---
KUB: The tip of the Dobbhoff catheter is in the distal stomach region. There is an unremarkable bowel gas pattern. Of additional note is the presence of pelvic cystectomy clips, left upper quadrant surgical clips, and bilateral iliac vascular stents.
[2016-12-23] MEDS ORDERED: PANCREAZE DR 10,500 UNIT FEEDTUBE PRN (13:27)
[2016-12-23] MEDS ORDERED: SODIUM BICARBONATE FEEDTUBE PRN (13:27)
[2016-12-23] MEDS ORDERED: SIMPLE SYRUP FEEDTUBE PRN ×2 (13:27)
[2016-12-23] MEDS: NACL 0.9% 1000 ML 1,000 ML IV SCH (15:39)
--- NOTE | 2016-12-23 16:02 | Progress Note ---
Assessment and Plan Assessment and plan: Patient is a 81-year-old gentleman was a history of coronary artery disease status post CABG in 2005, dementia COPD, hypertension and hyperlipidemia who is being For by family members at home, was noted to have alteration in his mental status. Was therefore brought to the emergency department. Patient has an indwelling Jacobson catheter for urinary retention and BPH. At emergency department she was found to be very cloudy. Urinalysis shows 182 white blood cell with positive nitrites. CT scan of the head was unremarkable. Patient had no fever. History was obtained from emergency room medical record as to was no family member around. I did discuss with the daughter who informs me that the patient has been not ambulatory for about 6 months. Has had multiple hospitalizations due to recurrent urinary tract infection. Also has been unsteady in the past 5-6 months sustaining multiple falls. For this reason patient's to prior restraints will attempt to bring him closer to the nursing station and attempt to remove restraints this restraints in place due to safety reasons as he pulls on his Jacobson when the retraining so. Toxic metabolic encephalopathy due to UTI and sepsis. Supportive care, neurochecks, continue antibiotics WAS changed to Zosyn for broader coverage Acute kidney injury on chronic kidney disease likely secondary to vasomotor nephropathy versus BPH-jacobson exchanged. renal failure resolved Sepsis secondary to UTI. Discontinue Levaquin changed to Zosyn for broader coverage. Supportive care culture appears to be contaminated well reculture- UTI. Continue Zosyn. Patient came in with indwelling jacobson catheter from home. Catheter was placed secondary to BPH was placed by urology. Leukocytosis due to sepsis, UTI. WBC TRENDING DOWN. Coronary artery disease s/p CABG. This is stable, no chest pain or shortness of breath. On Aspirin, Lopressor Hypertensive urgency. Blood pressure now stable after adding Hydralazine 50 mg by mouth every 8 hours to Norvasc, Lopressor. Hyperlipidemia Protein calorie malnutrition-BMI 19.9-patient failed swallow eval today To nothing by mouth. Family discussing next options. I understand patient has a living will and family is reviewing to see what next. Dementia. He is cared for at home by family members Failure to thrive-ongoing in the past 6 months gradual decline per Family. Discussed with the patients daughter- ok with NGT being placed. WILL OBTAIN DVT prophylaxis with subcutaneous heparin His management discussed with family today they are considering hospice no decision has been made yet. Full CODE STATUS History Interval history: Admitted with fall and confusion, Patient seen and examined this morning in no acute distress-" I want to eat" Denies any chest pain, nausea, vomiting, diarrhea No fever noted blood pressure controlled No adverse events reported to me by nursing staff Hospitalist Physical - Physical exam Narrative exam: VITAL SIGNS: Reviewed. GENERAL: The patient appeared well nourished and normally developed. On soft restraints. Vital signs as documented. HEAD: No signs of head trauma. EYES: Pupils are equal. Extraocular motions intact. EARS: Hearing grossly intact. MOUTH: Oropharynx is normal. NECK: No adenopathy, no JVD. CHEST: Chest with clear breath sounds bilaterally. No wheezes, rales, or rhonchi. CARDIAC: Regular rate and rhythm. S1 and S2, without murmurs, gallops, or rubs. VASCULAR: No Edema. Peripheral pulses normal and equal in all extremities. ABDOMEN: Soft, without detectable tenderness. No sign of distention. No rebound or guarding, and no masses palpated. Bowel Sounds normal. MUSCULOSKELETAL: Good range of motion of all major joints. Extremities without clubbing, cyanosis or edema. NEUROLOGIC EXAM: Alert and oriented x 2. intermittently confused No focal sensory or strength deficits. Speech slow. Follows commands. PSYCHIATRIC: Mood agitated. SKIN: No rash or lesions. - Constitutional Vitals: Temp Pulse Resp BP Pulse Ox 98.1 F 62 20 123/59 94 12/23/16 13:30 12/23/16 13:30 12/23/16 13:30 12/23/16 13:30 12/23/16 13:30 General appearance: Present: no acute distress, cachectic Results - Labs CBC & Chem 7: 12/23/16 04:54 12/23/16 04:54 Labs: Laboratory Last Values WBC 13.9 K/mm3 (4.5-11.0) H 12/23/16 04:54 RBC 3.86 M/mm3 (3.65-5.03) 12/23/16 04:54 Hgb 10.7 gm/dl (11.8-15.2) L 12/23/16 04:54 Hct 33.1 % (35.5-45.6) L 12/23/16 04:54 MCV 86 fl (84-94) 12/23/16 04:54 MCH 28 pg (28-32) 12/23/16 04:54 MCHC 32 % (32-34) 12/23/16 04:54 RDW 16.9 % (13.2-15.2) H 12/23/16 04:54 Plt Count 236 K/mm3 (140-440) 12/23/16 04:54 Lymph % (Auto) 19.0 % (13.4-35.0) 12/16/16 07:20 [place] % (Auto) 9.4 % (0.0-7.3) H 12/16/16 07:20 Eos % (Auto) 6.1 % (0.0-4.3) H 12/16/16 07:20 Baso % (Auto) 0.6 % (0.0-1.8) 12/16/16 07:20 Lymph # 1.9 K/mm3 (1.2-5.4) 12/16/16 07:20 [place] # 0.9 K/mm3 (0.0-0.8) H 12/16/16 07:20 Eos # 0.6 K/mm3 (0.0-0.4) H 12/16/16 07:20 Baso # 0.1 K/mm3 (0.0-0.1) 12/16/16 07:20 Seg Neutrophils % 64.9 % (40.0-70.0) 12/16/16 07:20 Seg Neutrophils # 6.3 K/mm3 (1.8-7.7) 12/16/16 07:20 PT 13.0 Sec. (12.2-14.9) 12/16/16 07:20 INR 0.99 (0.87-1.13) 12/16/16 07:20 APTT 34.7 Sec. (24.2-36.6) 12/16/16 07:20 Sodium 144 mmol/L (137-145) 12/23/16 04:54 Potassium 3.5 mmol/L (3.6-5.0) L 12/23/16 04:54 Chloride 109.5 mmol/L (98-107) H 12/23/16 04:54 Carbon Dioxide 20 mmol/L (22-30) L 12/23/16 04:54 Anion Gap 18 mmol/L 03/24/17 04:54 BUN 47 mg/dL (9-20) H 12/23/16 04:54 Creatinine 1.1 mg/dL (0.8-1.5) 12/23/16 04:54 Estimated GFR > 60 ml/min 12/23/16 04:54 BUN/Creatinine Ratio 42.72 % 12/23/16 04:54 Glucose 100 mg/dL (75-100) 12/23/16 04:54 POC Glucose 125 (70-105) H 12/23/16 12:42 Lactic Acid 2.1 mmol/L (0.7-2.0) H* 12/16/16 21:48 Calcium 8.9 mg/dL (8.4-10.2) 12/23/16 04:54 Iron 45 ug/dL (49-181) L 12/16/16 11:14 TIBC 333.20 mcg/dL (250-450) 12/16/16 11:14 % Saturation 13.51 % 12/16/16 11:14 Transferrin 238 mg/dl (180-329) 12/16/16 11:14 Total Creatine Kinase 82 units/L (55-170) 12/17/16 05:35 CK-MB (CK-2) 2.7 ng/mL (0.0-4.0) 12/17/16 05:35 CK-MB (CK-2) Rel Index 3.2 (0-4) 12/17/16 05:35 Albumin 3.1 g/dL (3.9-5) L 12/22/16 17:28 Urine Color Yellow (Yellow) 12/20/16 Unknown Urine Turbidity Cloudy (Clear) 12/20/16 Unknown Urine pH 5.0 (5.0-7.0) 12/20/16 Unknown Ur Specific [place] 1.012 (1.003-1.030) 12/20/16 Unknown Urine Protein 30 mg/dl mg/dL (Negative) 12/20/16 Unknown Urine Glucose (UA) Neg mg/dL (Negative) 12/20/16 Unknown Urine Ketones Neg mg/dL (Negative) 12/20/16 Unknown Urine Blood Mod (Negative) 12/20/16 Unknown Urine Nitrite Neg (Negative) 12/20/16 Unknown Ur Reducing Substances Not Reportable 12/20/16 Unknown Urine Bilirubin Neg (Negative) 12/20/16 Unknown Urine Ictotest Not Reportable 12/20/16 Unknown Urine Urobilinogen < 2.0 mg/dL (<2.0) 12/20/16 Unknown Ur Leukocyte Esterase Lg (Negative) 12/20/16 Unknown Urine WBC (Auto) 181.0 /HPF (0.0-6.0) H 12/20/16 Unknown Urine RBC (Auto) 44.0 /HPF (0.0-6.0) 12/20/16 Unknown U Epithel Cells (Auto) 1.0 /HPF (0-13.0) 12/20/16 Unknown Urine Bacteria (Auto) 1+ /HPF (Negative) 12/20/16 Unknown Urine WBC Clumps 2+ /HPF 12/20/16 Unknown Amorphous Crystals Few 12/16/16 08:28 Hyaline Casts 2 /LPF 12/20/16 Unknown Urine Mucus 1+ /HPF 12/20/16 Unknown Urine Yeast (Budding) 3+ /HPF 12/20/16 Unknown Urine Sperm Few /HPF (AUTO REFINISHER) 12/20/16 Unknown Blood Type B POSITIVE 12/16/16 07:20 Antibody Screen Negative 12/16/16 07:20
[2016-12-23] MEDS: FLOMAX PO SCH (22:00)
[2016-12-23] MEDS: LaMICtal PO SCH (22:02)
[2016-12-23] MEDS: PAMELOR PO SCH (22:02)
--- NOTE | 2016-12-24 01:19 | XRay Report ---
FINAL REPORT PROCEDURE: XR ABDOMEN 1V AP TECHNIQUE: Abdominal radiograph, single supine AP view. HISTORY: tube placement COMPARISON: No prior studies are available for comparison. FINDINGS: Bowel gas pattern:Nonobstructive. Masses or calcifications:There has been previous cholecystectomy.. Bony structures:No significant abnormality. Other:None. The feeding tube ends in the upper stomach. IMPRESSION: The feeding tube ends in the upper stomach.
[2016-12-24] MEDS: ALPHAGAN P 0.15% OU SCH ×3 (01:29→17:05)
[2016-12-24] MEDS: ZOSYN/NS 4.5GM/100ML 4.5 GM/100 ML VIAL IV SCH ×3 (05:18→22:50)
[2016-12-24] MEDS: APRESOLINE PO SCH ×3 (05:19→21:22)
[2016-12-24] MEDS: NACL 0.9% 1000 ML 1,000 ML IV SCH ×2 (05:21→18:31)
[2016-12-24] MEDS: DUONEB 0.5 MG-3 MG/3 ML SOLN IH SCH ×3 (08:47→20:39)
[2016-12-24] MEDS: BABY ASPIRIN PO SCH (10:23)
[2016-12-24] MEDS: HALDOL PO SCH ×2 (10:24→21:23)
[2016-12-24] MEDS: LOPRESSOR PO SCH (10:24)
[2016-12-24] MEDS: COLACE PO SCH (10:24)
[2016-12-24] MEDS: NORVASC PO SCH (10:25)
[2016-12-24] MEDS: HEPARIN SUB-Q SCH ×2 (10:28→21:24)
--- NOTE | 2016-12-24 14:21 | Progress Note ---
Assessment and Plan Assessment and plan: Patient is a 81-year-old gentleman was a history of coronary artery disease status post CABG in 2005, dementia COPD, hypertension and hyperlipidemia who is being For by family members at home, was noted to have alteration in his mental status. Was therefore brought to the emergency department. Patient has an indwelling Jacobson catheter for urinary retention and BPH. At emergency department she was found to be very cloudy. Urinalysis shows 182 white blood cell with positive nitrites. CT scan of the head was unremarkable. Patient had no fever. History was obtained from emergency room medical record as to was no family member around. I did discuss with the daughter who informs me that the patient has been not ambulatory for about 6 months. Has had multiple hospitalizations due to recurrent urinary tract infection. Also has been unsteady in the past 5-6 months sustaining multiple falls. For this reason patient's to prior restraints will attempt to bring him closer to the nursing station and attempt to remove restraints this restraints in place due to safety reasons as he pulls on his Jacobson when the retraining so. Toxic metabolic encephalopathy due to UTI and sepsis. Supportive care, neurochecks, continue antibiotics Was changed to Zosyn for broader coverage, improving leukocytosis Acute kidney injury on chronic kidney disease likely secondary to vasomotor nephropathy versus BPH-jacobson exchanged. renal failure resolved Sepsis secondary to UTI. Discontinue Levaquin changed to Zosyn for broader coverage. Supportive care culture appears to be contaminated well reculture- UTI. Continue Zosyn. Patient came in with indwelling jacobson catheter from home. Catheter was placed secondary to BPH was placed by urology. Leukocytosis due to sepsis, UTI. WBC TRENDING DOWN. Coronary artery disease s/p CABG. This is stable, no chest pain or shortness of breath. On Aspirin, Lopressor Hypertensive urgency. Blood pressure now stable after adding Hydralazine 50 mg by mouth every 8 hours to Norvasc, Lopressor. Hyperlipidemia- cont statin Protein calorie malnutrition-BMI 19.9-patient failed swallow eval today To nothing by mouth. Family discussing next options. NG tube placed to replace will obtain GI consultation for possible PEG placement. Dementia. He is cared for at home by family members Failure to thrive-ongoing in the past 6 months gradual decline per Family. Discussed with the patients daughter- ok with NGT being placed. DVT prophylaxis with subcutaneous heparin Full CODE STATUS History Interval history: Admitted with fall and confusion, Patient seen and examined this morning in no acute distress Denies any chest pain, nausea, vomiting, diarrhea No fever noted blood pressure controlled No adverse events reported to me by nursing staff Hospitalist Physical - Physical exam Narrative exam: VITAL SIGNS: Reviewed. GENERAL: The patient appeared well nourished and normally developed. On soft restraints for safety. Vital signs as documented. HEAD: No signs of head trauma. EYES: Pupils are equal. Extraocular motions intact. EARS: Hearing grossly intact. MOUTH: Oropharynx is normal. NECK: No adenopathy, no JVD. CHEST: Chest with clear breath sounds bilaterally. No wheezes, rales, or rhonchi. CARDIAC: Regular rate and rhythm. S1 and S2, without murmurs, gallops, or rubs. VASCULAR: No Edema. Peripheral pulses normal and equal in all extremities. ABDOMEN: Soft, without detectable tenderness. No sign of distention. No rebound or guarding, and no masses palpated. Bowel Sounds normal. MUSCULOSKELETAL: Good range of motion of all major joints. Extremities without clubbing, cyanosis or edema. NEUROLOGIC EXAM: Alert and oriented x 2. intermittently confused No focal sensory or strength deficits. Speech slow. Follows commands. PSYCHIATRIC: Mood normal. SKIN: No rash or lesions. - Constitutional Vitals: Temp Pulse Resp BP Pulse Ox 98.0 F 68 20 168/83 100 12/24/16 11:48 12/24/16 11:48 12/24/16 11:48 12/24/16 11:48 12/24/16 11:48 General appearance: Present: no acute distress, cachectic Results - Labs CBC & Chem 7: 12/23/16 04:54 12/23/16 04:54 Labs: Laboratory Last Values WBC 13.9 K/mm3 (4.5-11.0) H 12/23/16 04:54 RBC 3.86 M/mm3 (3.65-5.03) 12/23/16 04:54 Hgb 10.7 gm/dl (11.8-15.2) L 12/23/16 04:54 Hct 33.1 % (35.5-45.6) L 12/23/16 04:54 MCV 86 fl (84-94) 12/23/16 04:54 MCH 28 pg (28-32) 12/23/16 04:54 MCHC 32 % (32-34) 12/23/16 04:54 RDW 16.9 % (13.2-15.2) H 12/23/16 04:54 Plt Count 236 K/mm3 (140-440) 12/23/16 04:54 Lymph % (Auto) 19.0 % (13.4-35.0) 12/16/16 07:20 [place] % (Auto) 9.4 % (0.0-7.3) H 12/16/16 07:20 Eos % (Auto) 6.1 % (0.0-4.3) H 12/16/16 07:20 Baso % (Auto) 0.6 % (0.0-1.8) 12/16/16 07:20 Lymph # 1.9 K/mm3 (1.2-5.4) 12/16/16 07:20 [place] # 0.9 K/mm3 (0.0-0.8) H 12/16/16 07:20 Eos # 0.6 K/mm3 (0.0-0.4) H 12/16/16 07:20 Baso # 0.1 K/mm3 (0.0-0.1) 12/16/16 07:20 Seg Neutrophils % 64.9 % (40.0-70.0) 12/16/16 07:20 Seg Neutrophils # 6.3 K/mm3 (1.8-7.7) 12/16/16 07:20 PT 13.0 Sec. (12.2-14.9) 12/16/16 07:20 INR 0.99 (0.87-1.13) 12/16/16 07:20 APTT 34.7 Sec. (24.2-36.6) 12/16/16 07:20 Sodium 144 mmol/L (137-145) 12/23/16 04:54 Potassium 3.5 mmol/L (3.6-5.0) L 12/23/16 04:54 Chloride 109.5 mmol/L (98-107) H 12/23/16 04:54 Carbon Dioxide 20 mmol/L (22-30) L 12/23/16 04:54 Anion Gap 18 mmol/L 12/23/16 04:54 BUN 47 mg/dL (9-20) H 12/23/16 04:54 Creatinine 1.1 mg/dL (0.8-1.5) 12/23/16 04:54 Estimated GFR > 60 ml/min 12/23/16 04:54 BUN/Creatinine Ratio 42.72 % 12/23/16 04:54 Glucose 100 mg/dL (75-100) 12/23/16 04:54 POC Glucose 93 (70-105) 12/23/16 20:57 Lactic Acid 2.1 mmol/L (0.7-2.0) H* 12/16/16 21:48 Calcium 8.9 mg/dL (8.4-10.2) 12/23/16 04:54 Iron 45 ug/dL (49-181) L 12/16/16 11:14 TIBC 333.20 mcg/dL (250-450) 12/16/16 11:14 % Saturation 13.51 % 12/16/16 11:14 Transferrin 238 mg/dl (180-329) 12/16/16 11:14 Total Creatine Kinase 82 units/L (55-170) 12/17/16 05:35 CK-MB (CK-2) 2.7 ng/mL (0.0-4.0) 12/17/16 05:35 CK-MB (CK-2) Rel Index 3.2 (0-4) 12/17/16 05:35 Albumin 3.1 g/dL (3.9-5) L 12/22/16 17:28 Urine Color Yellow (Yellow) 12/20/16 Unknown Urine Turbidity Cloudy (Clear) 12/20/16 Unknown Urine pH 5.0 (5.0-7.0) 12/20/16 Unknown Ur Specific [place] 1.012 (1.003-1.030) 12/20/16 Unknown Urine Protein 30 mg/dl mg/dL (Negative) 12/20/16 Unknown Urine Glucose (UA) Neg mg/dL (Negative) 12/20/16 Unknown Urine Ketones Neg mg/dL (Negative) 12/20/16 Unknown Urine Blood Mod (Negative) 12/20/16 Unknown Urine Nitrite Neg (Negative) 12/20/16 Unknown Ur Reducing Substances Not Reportable 12/20/16 Unknown Urine Bilirubin Neg (Negative) 12/20/16 Unknown Urine Ictotest Not Reportable 12/20/16 Unknown Urine Urobilinogen < 2.0 mg/dL (<2.0) 12/20/16 Unknown Ur Leukocyte Esterase Lg (Negative) 12/20/16 Unknown Urine WBC (Auto) 181.0 /HPF (0.0-6.0) H 12/20/16 Unknown Urine RBC (Auto) 44.0 /HPF (0.0-6.0) 12/20/16 Unknown U Epithel Cells (Auto) 1.0 /HPF (0-13.0) 12/20/16 Unknown Urine Bacteria (Auto) 1+ /HPF (Negative) 12/20/16 Unknown Urine WBC Clumps 2+ /HPF 12/20/16 Unknown Amorphous Crystals Few 12/16/16 08:28 Hyaline Casts 2 /LPF 12/20/16 Unknown Urine Mucus 1+ /HPF 12/20/16 Unknown Urine Yeast (Budding) 3+ /HPF 12/20/16 Unknown Urine Sperm Few /HPF (PROFESSOR OF RADIOLOGY) 12/20/16 Unknown Blood Type B POSITIVE 12/16/16 07:20 Antibody Screen Negative 12/16/16 07:20
[2016-12-24] MEDS ORDERED: NON-FORMULARY (Duloxetine Hcl [Duloxetine] 60 MG) PO SCH (14:30)
--- NOTE | 2016-12-24 17:19 | Progress Note ---
Assessment and Plan URINARY RETENTION - s/p cath - home with jacobson - cath in place and draining Subjective Date of service: 12/24/16 Interval history: no change Objective - Constitutional Vitals: Vital Signs - 12hr 12/24/16 12/24/16 12/24/16 05:19 05:59 08:00 Temperature 98.9 F Pulse Rate 100 H Pulse Rate [ 105 H Anterior Bilateral Throughout] Pulse Rate [ 107 H Apical] Pulse Rate [ Left Radial] Pulse Rate [ Right Radial] Respiratory 20 Rate Respiratory 20 Rate [Anterior Bilateral Throughout] Respiratory Rate [Penis] Blood Pressure 110/66 Blood Pressure 125/73 [Right Radial Artery] O2 Sat by Pulse 98 Oximetry 12/24/16 12/24/16 12/24/16 08:03 08:49 09:09 Temperature 98.1 F Pulse Rate Pulse Rate [ 106 H Anterior Bilateral Throughout] Pulse Rate [ Apical] Pulse Rate [ Left Radial] Pulse Rate [ 106 H Right Radial] Respiratory 20 Rate Respiratory 20 Rate [Anterior Bilateral Throughout] Respiratory Rate [Penis] Blood Pressure Blood Pressure 150/67 [Right Radial Artery] O2 Sat by Pulse 100 100 Oximetry 12/24/16 12/24/16 12/24/16 10:00 11:00 11:48 Temperature 98.0 F Pulse Rate 98 H Pulse Rate [ Anterior Bilateral Throughout] Pulse Rate [ 110 H Apical] Pulse Rate [ Left Radial] Pulse Rate [ 68 Right Radial] Respiratory 20 20 Rate Respiratory Rate [Anterior Bilateral Throughout] Respiratory 20 Rate [Penis] Blood Pressure Blood Pressure 168/83 [Right Radial Artery] O2 Sat by Pulse 100 100 Oximetry 12/24/16 12/24/16 12/24/16 14:15 14:30 16:32 Temperature 98.3 F Pulse Rate Pulse Rate [ 102 H 103 H Anterior Bilateral Throughout] Pulse Rate [ Apical] Pulse Rate [ 90 Left Radial] Pulse Rate [ Right Radial] Respiratory 20 Rate Respiratory 18 16 Rate [Anterior Bilateral Throughout] Respiratory Rate [Penis] Blood Pressure Blood Pressure 164/71 [Right Radial Artery] O2 Sat by Pulse 97 Oximetry - Gastrointestinal General gastrointestinal: Present: other (cath clear) - Labs CBC & Chem 7: 12/23/16 04:54 12/23/16 04:54
[2016-12-24] MEDS: FLOMAX PO SCH (21:22)
[2016-12-24] MEDS: PAMELOR PO SCH (21:23)
[2016-12-24] MEDS: LaMICtal PO SCH (21:23)
[2016-12-25] MEDS: ALPHAGAN P 0.15% OU SCH ×3 (01:19→17:36)
[2016-12-25] MEDS: APRESOLINE PO SCH ×3 (05:35→21:31)
[2016-12-25] MEDS: ZOSYN/NS 4.5GM/100ML 4.5 GM/100 ML VIAL IV SCH ×3 (05:35→21:34)
[2016-12-25] MEDS: NACL 0.9% 1000 ML 1,000 ML IV SCH ×2 (05:42→21:39)
[2016-12-25 06:12] LABS: Hematocrit 38.7 % (35.5-45.6); Hemoglobin 12.6 gm/dl (11.8-15.2); Mean Corpuscular HGB Conc 33 % (32-34); Mean Corpuscular Hemoglobin 28 pg (28-32); Mean Corpuscular Volume 85 fl (84-94); Platelet Count 238 K/mm3 (140-440); Red Blood Count 4.53 M/mm3 (3.65-5.03); Red Cell Distribution Width 17.3 % (13.2-15.2); White Blood Count 13.3 K/mm3 (4.5-11.0)
[2016-12-25 06:14] LABS: Anion Gap 20 mmol/L; BUN/Creatinine Ratio 34.44; Blood Urea Nitrogen 31 mg/dL (9-20); Calcium 8.8 mg/dL (8.4-10.2); Carbon Dioxide 22 mmol/L (22-30); Glucose 109 mg/dL (75-100); Potassium 3.1 mmol/L (3.6-5.0); Sodium 149 mmol/L (137-145)
[2016-12-25] MEDS: DUONEB 0.5 MG-3 MG/3 ML SOLN IH SCH ×3 (08:16→19:58)
[2016-12-25] MEDS ORDERED: K-DUR PO ONE (09:28)
[2016-12-25] MEDS: BABY ASPIRIN PO SCH (10:45)
[2016-12-25] MEDS: COLACE PO SCH (10:46)
[2016-12-25] MEDS: CYMBALTA PO SCH (10:47)
[2016-12-25] MEDS: HALDOL PO SCH ×2 (10:47→21:32)
[2016-12-25] MEDS: LOPRESSOR PO SCH (10:48)
[2016-12-25] MEDS: NORVASC PO SCH (10:48)
[2016-12-25] MEDS: HEPARIN SUB-Q SCH (10:49)
--- NOTE | 2016-12-25 15:49 | Progress Note ---
Assessment and Plan Assessment and plan: Patient is a 81-year-old gentleman was a history of coronary artery disease status post CABG in 2006, dementia COPD, hypertension and hyperlipidemia who is being For by family members at home, was noted to have alteration in his mental status. Was therefore brought to the emergency department. Patient has an indwelling Jacobson catheter for urinary retention and BPH. At emergency department she was found to be very cloudy. Urinalysis shows 182 white blood cell with positive nitrites. CT scan of the head was unremarkable. Patient had no fever. History was obtained from emergency room medical record as to was no family member around. I did discuss with the daughter who informs me that the patient has been not ambulatory for about 6 months. Has had multiple hospitalizations due to recurrent urinary tract infection. Also has been unsteady in the past 5-6 months sustaining multiple falls. For this reason patient's to prior restraints will attempt to bring him closer to the nursing station and attempt to remove restraints this restraints in place due to safety reasons as he pulls on his Jacobson when the retraining so. Patient still with tachycardia and tachypnea this improved as the day went by otherwise appears stable. Discussed with nursing staff to try to apply mustard to his oral cavity and also repeat swallow evaluation in a.m. prior to GI evaluation. He also has missing dentition, sure if he has false tooth that needs to be put in place to assist with swallowing. Toxic metabolic encephalopathy due to UTI and sepsis. Supportive care, neurochecks, continue antibiotics Was changed to Zosyn for broader coverage, improving leukocytosis Acute kidney injury on chronic kidney disease likely secondary to vasomotor nephropathy versus BPH-jacobson exchanged. renal failure resolved Sepsis secondary to UTI. Discontinue Levaquin changed to Zosyn for broader coverage. Supportive care culture appears to be contaminated well reculture- UTI. Continue Zosyn. Patient came in with indwelling jacobson catheter from home. Catheter was placed secondary to BPH was placed by urology. Leukocytosis due to sepsis, UTI. WBC TRENDING DOWN. Coronary artery disease s/p CABG. This is stable, no chest pain or shortness of breath. On Aspirin, Lopressor Hypertensive urgency. Blood pressure now stable after adding Hydralazine 50 mg by mouth every 8 hours to Norvasc, Lopressor. Hyperlipidemia- cont statin Hypokalemia-replace and check magnesium Protein calorie malnutrition-BMI 19.9-patient failed swallow eval today To nothing by mouth. Family discussing next options. NG tube placed to replace will obtain GI consultation for possible PEG placement. Dementia. He is cared for at home by family members Failure to thrive-ongoing in the past 6 months gradual decline per Family. Discussed with the patients daughter- ok with NGT being placed. DVT prophylaxis with subcutaneous heparin Full CODE STATUS History Interval history: Admitted with fall and confusion, Patient seen and examined this morning in no acute distress, still in restraints , have not been able to move patient closer to the door. Denies any chest pain, nausea, vomiting, diarrhea No fever noted blood pressure controlled No adverse events reported to me by nursing staff Hospitalist Physical - Physical exam Narrative exam: VITAL SIGNS: Reviewed. GENERAL: The patient appeared well nourished and normally developed. On soft restraints for safety. Vital signs as documented. HEAD: No signs of head trauma. EYES: Pupils are equal. Extraocular motions intact. EARS: Hearing grossly intact. MOUTH: Oropharynx is normal. NECK: No adenopathy, no JVD. CHEST: Chest with clear breath sounds bilaterally. No wheezes, rales, or rhonchi. CARDIAC: Tachycardia. S1 and S2, without murmurs, gallops, or rubs. VASCULAR: No Edema. Peripheral pulses normal and equal in all extremities. ABDOMEN: Soft, without detectable tenderness. No sign of distention. No rebound or guarding, and no masses palpated. Bowel Sounds normal. MUSCULOSKELETAL: Good range of motion of all major joints. Extremities without clubbing, cyanosis or edema. NEUROLOGIC EXAM: Alert and oriented x 2. intermittently confused No focal sensory or strength deficits. Speech slow. Follows commands. PSYCHIATRIC: Mood normal. SKIN: No rash or lesions. - Constitutional Vitals: Temp Pulse Resp BP Pulse Ox 97.3 F L 112 H 22 170/77 97 12/25/16 11:49 12/25/16 15:30 12/25/16 15:30 12/25/16 11:49 12/25/16 11:49 General appearance: Present: no acute distress, cachectic Results - Labs CBC & Chem 7: 12/25/16 04:53 12/25/16 04:53 Labs: Laboratory Last Values WBC 13.3 K/mm3 (4.5-11.0) H 12/25/16 04:53 RBC 4.53 M/mm3 (3.65-5.03) 12/25/16 04:53 Hgb 12.6 gm/dl (11.8-15.2) 12/25/16 04:53 Hct 38.7 % (35.5-45.6) 12/25/16 04:53 MCV 85 fl (84-94) 12/25/16 04:53 MCH 28 pg (28-32) 12/25/16 04:53 MCHC 33 % (32-34) 12/25/16 04:53 RDW 17.3 % (13.2-15.2) H 12/25/16 04:53 Plt Count 238 K/mm3 (140-440) 12/25/16 04:53 Lymph % (Auto) 19.0 % (13.4-35.0) 12/16/16 07:20 [place] % (Auto) 9.4 % (0.0-7.3) H 12/16/16 07:20 Eos % (Auto) 6.1 % (0.0-4.3) H 12/16/16 07:20 Baso % (Auto) 0.6 % (0.0-1.8) 12/16/16 07:20 Lymph # 1.9 K/mm3 (1.2-5.4) 12/16/16 07:20 [place] # 0.9 K/mm3 (0.0-0.8) H 12/16/16 07:20 Eos # 0.6 K/mm3 (0.0-0.4) H 12/16/16 07:20 Baso # 0.1 K/mm3 (0.0-0.1) 12/16/16 07:20 Seg Neutrophils % 64.9 % (40.0-70.0) 12/16/16 07:20 Seg Neutrophils # 6.3 K/mm3 (1.8-7.7) 12/16/16 07:20 PT 13.0 Sec. (12.2-14.9) 12/16/16 07:20 INR 0.99 (0.87-1.13) 12/16/16 07:20 APTT 34.7 Sec. (24.2-36.6) 12/16/16 07:20 Sodium 149 mmol/L (137-145) H 12/25/16 04:53 Potassium 3.1 mmol/L (3.6-5.0) L 12/25/16 04:53 Chloride 110.0 mmol/L (98-107) H 12/25/16 04:53 Carbon Dioxide 22 mmol/L (22-30) 12/25/16 04:53 Anion Gap 20 mmol/L 12/25/16 04:53 BUN 31 mg/dL (9-20) H 12/25/16 04:53 Creatinine 0.9 mg/dL (0.8-1.5) 12/25/16 04:53 Estimated GFR > 60 ml/min 12/25/16 04:53 BUN/Creatinine Ratio 34.44 % 12/25/16 04:53 Glucose 109 mg/dL (75-100) H 12/25/16 04:53 POC Glucose 127 (70-105) H 12/25/16 11:49 Lactic Acid 2.1 mmol/L (0.7-2.0) H* 12/16/16 21:48 Calcium 8.8 mg/dL (8.4-10.2) 12/25/16 04:53 Iron 45 ug/dL (49-181) L 12/16/16 11:14 TIBC 333.20 mcg/dL (250-450) 12/16/16 11:14 % Saturation 13.51 % 12/16/16 11:14 Transferrin 238 mg/dl (180-329) 12/16/16 11:14 Total Creatine Kinase 82 units/L (55-170) 12/17/16 05:35 CK-MB (CK-2) 2.7 ng/mL (0.0-4.0) 12/17/16 05:35 CK-MB (CK-2) Rel Index 3.2 (0-4) 12/17/16 05:35 Albumin 3.1 g/dL (3.9-5) L 12/22/16 17:28 Urine Color Yellow (Yellow) 12/20/16 Unknown Urine Turbidity Cloudy (Clear) 12/20/16 Unknown Urine pH 5.0 (5.0-7.0) 12/20/16 Unknown Ur Specific [place] 1.012 (1.003-1.030) 12/20/16 Unknown Urine Protein 30 mg/dl mg/dL (Negative) 12/20/16 Unknown Urine Glucose (UA) Neg mg/dL (Negative) 12/20/16 Unknown Urine Ketones Neg mg/dL (Negative) 12/20/16 Unknown Urine Blood Mod (Negative) 12/20/16 Unknown Urine Nitrite Neg (Negative) 12/20/16 Unknown Ur Reducing Substances Not Reportable 12/20/16 Unknown Urine Bilirubin Neg (Negative) 12/20/16 Unknown Urine Ictotest Not Reportable 12/20/16 Unknown Urine Urobilinogen < 2.0 mg/dL (<2.0) 12/20/16 Unknown Ur Leukocyte Esterase Lg (Negative) 12/20/16 Unknown Urine WBC (Auto) 181.0 /HPF (0.0-6.0) H 12/20/16 Unknown Urine RBC (Auto) 44.0 /HPF (0.0-6.0) 12/20/16 Unknown U Epithel Cells (Auto) 1.0 /HPF (0-13.0) 12/20/16 Unknown Urine Bacteria (Auto) 1+ /HPF (Negative) 12/20/16 Unknown Urine WBC Clumps 2+ /HPF 12/20/16 Unknown Amorphous Crystals Few 12/16/16 08:28 Hyaline Casts 2 /LPF 12/20/16 Unknown Urine Mucus 1+ /HPF 12/20/16 Unknown Urine Yeast (Budding) 3+ /HPF 12/20/16 Unknown Urine Sperm Few /HPF (SENIOR PRODUCT DESIGNER) 12/20/16 Unknown Blood Type B POSITIVE 12/16/16 07:20 Antibody Screen Negative 12/16/16 07:20
[2016-12-25] MEDS: KCL 10MEQ/100ML 10 MEQ/100 ML BAG IV SCH ×4 (16:47→19:20)
[2016-12-25] MEDS: LaMICtal PO SCH (21:31)
[2016-12-25] MEDS: FLOMAX PO SCH (21:31)
[2016-12-25] MEDS: PAMELOR PO SCH (21:32)
--- NOTE | 2016-12-26 00:59 | Consultation ---
INDICATION: 1. Failure to thrive. 2. Weight loss. HISTORY OF PRESENT ILLNESS: The patient is an 81-year-old white male with history of coronary artery disease, status post CABG, dementia, COPD, hypertension, and hyperlipidemia, now been seen by GI for failure to thrive. The patient presented to the Emergency Room on 12/16/2016 with signs of urosepsis and subsequently was admitted for further management. During that hospitalization, the patient has continued to have failure to thrive and not eating well. GI is consulted for possible PEG tube placement. History is per chart. The patient denies any other specific symptoms. PAST MEDICAL HISTORY: 1. Coronary artery disease, status post CABG. 2. COPD. 3. Hypertension. 4. High cholesterol. 5. Dementia. MEDICATIONS: See chart. ALLERGIES: No known drug allergies. SOCIAL HISTORY: Denies alcohol, tobacco, or IV drug abuse. FAMILY HISTORY: Negative for colon cancer. REVIEW OF SYSTEMS: Per chart. GENERAL: Reports general weakness. HEENT: No visual complaints or tinnitus. PULMONARY: No shortness of breath. CARDIOVASCULAR: No chest pain. GASTROINTESTINAL: Reports no other specific symptoms. All points of 13-point review of systems otherwise negative. PHYSICAL EXAMINATION: VITAL SIGNS: Temperature of 98.0, pulse 84, respirations 18, blood pressure is 173/70. GENERAL: Fairly thin white male in no acute distress. HEENT: Pupils equal, round, reactive to light and accommodation. Extraocular movements intact. PULMONARY: Clear to auscultation bilaterally. CARDIOVASCULAR: Regular rhythm. Normal S1, S2. ABDOMEN: Positive bowel sounds, soft. SKIN: No obvious rashes. LABORATORY DATA: Pertinent for white count of 38.3, hemoglobin and hematocrit of 12.6 and 38.7, platelet count of 238. Chem-7 pertinent for potassium of 3.1, otherwise within normal limits. ASSESSMENT AND PLAN: An 81-year-old male presented with urosepsis and other medical issues, now with failure to thrive and GI is consulted for PEG tube placement. PLAN: 1. We will discuss options with patient's family. 2. If family decides to move with PEG, we will plan for n.p.o. after midnight. We will check of coags in the morning. 3. Possible EGD, PEG tube placement in a.m. JOB# [id number] CAB/NTS
[2016-12-26] MEDS: ALPHAGAN P 0.15% OU SCH ×3 (01:50→22:42)
[2016-12-26] MEDS: ZOSYN/NS 4.5GM/100ML 4.5 GM/100 ML VIAL IV SCH ×3 (05:31→23:03)
[2016-12-26 05:52] LABS: INR 1.01 (0.87-1.13)
[2016-12-26 05:53] LABS: Partial Thromboplastin Time 31.7 Sec. (24.2-36.6)
[2016-12-26 06:03] LABS: Anion Gap 18 mmol/L; Blood Urea Nitrogen 24 mg/dL (9-20); Calcium 8.2 mg/dL (8.4-10.2); Carbon Dioxide 22 mmol/L (22-30); Chloride 109.1 mmol/L (98-107); Glucose 99 mg/dL (75-100); Potassium 3.5 mmol/L (3.6-5.0); Sodium 146 mmol/L (137-145)
[2016-12-26] MEDS: APRESOLINE IV PRN (06:48)
[2016-12-26] MEDS: APRESOLINE PO SCH ×3 (06:49→22:58)
[2016-12-26] MEDS: DUONEB 0.5 MG-3 MG/3 ML SOLN IH SCH ×3 (07:27→21:00)
[2016-12-26] MEDS: COLACE PO SCH (12:53)
[2016-12-26] MEDS ORDERED: GARAMYCIN 80 MG in NACL 0.9% 100 ML IV SCH (13:45)
[2016-12-26] MEDS ORDERED: CLEOCIN 600 MG/50 mL 600 MG/50 ML BAG IV NR (14:00)
[2016-12-26] MEDS ORDERED: NACL 0.9% 1000 ML 1,000 ML IV SCH (14:00)
[2016-12-26] MEDS ORDERED: GARAMYCIN/NS 80 MG/100 ML 100 ML IV NR (15:00)
[2016-12-26] MEDS ORDERED: DIPRIVAN 10 MG/ML IV ONE (15:05)
--- NOTE | 2016-12-26 15:08 | Anesthesia Consultation ---
Anesthesia Consult and Med Hx Date of service: 12/26/16 - Airway Anesthetic Teeth Evaluation: Edentulous ROM Head & Neck: Adequate Mental/Hyoid Distance: Inadequate Mallampati Class: Class III Intubation Access Assessment: Probably Good - Pulmonary Exam CTA: Yes - Cardiac Exam Cardiac Exam: RRR - Pre-Operative Health Status ASA Pre-Surgery Classification: ASA4 Proposed Anesthetic Plan: MAC - Pulmonary Hx Smoking: Yes Hx Respiratory Symptoms: Yes COPD: Yes Home Oxygen Therapy: Yes (?) - Cardiovascular System Hx Hypertension: Yes Hx Coronary Artery Disease: Yes Hx Heart Attack/AMI: Yes - Central Nervous System CVA: Yes Hx Psychiatric Problems: Yes - Endocrine Hx Renal Disease: Yes (sepsis) - Additional Comments Anesthesia Medical History Comments: sepsis/AMS
--- NOTE | 2016-12-26 15:09 | Anesthesia Day of Surgery ---
Anesthesia Day of Surgery - Day of Surgery Patient Examined: Yes Patient H&P Reviewed: Yes Patient is NPO: Yes Beta Blockers: No Cardiac Clearance: No Pulmonary Clearance: No
--- NOTE | 2016-12-26 15:31 | Post Operative Note ---
Pre-op diagnosis: dysphagia Post-op diagnosis: same Findings: EGD: mild gastritis - negative other - peg placed, bumper at 3 cm Procedure: EGD/PEG Anesthesia: MAC Surgeon: SEBASTIEN MARQUEZ Estimated blood loss: none Pathology: none Condition: stable Disposition: floor
[2016-12-26] MEDS ORDERED: WATER FOR IRRIG STERILE IR ONE (15:59)
--- NOTE | 2016-12-26 16:16 | Progress Note ---
Assessment and Plan Assessment and plan: Patient is a 81-year-old gentleman was a history of coronary artery disease status post CABG in 2005, dementia COPD, hypertension and hyperlipidemia who is being For by family members at home, was noted to have alteration in his mental status. Was therefore brought to the emergency department. Patient has an indwelling Jacobson catheter for urinary retention and BPH. At emergency department she was found to be very cloudy. Urinalysis shows 182 white blood cell with positive nitrites. CT scan of the head was unremarkable. Patient had no fever. History was obtained from emergency room medical record as to was no family member around. I did discuss with the daughter who informs me that the patient has been not ambulatory for about 6 months. Has had multiple hospitalizations due to recurrent urinary tract infection. Also has been unsteady in the past 5-6 months sustaining multiple falls. For this reason patient's to prior restraints will attempt to bring him closer to the nursing station and attempt to remove restraints this restraints in place due to safety reasons as he pulls on his Jacobson . Toxic metabolic encephalopathy due to UTI and sepsis. Supportive care, neurochecks, continue antibiotics Was changed to Zosyn for broader coverage, improving leukocytosis. Acute kidney injury on chronic kidney disease likely secondary to vasomotor nephropathy versus BPH-jacobson exchanged. renal failure resolved Sepsis secondary to UTI. Discontinued Levaquin changed to Zosyn for broader coverage. Supportive care culture appears to be contaminated.blood cultures negative to date - UTI. Continue Zosyn. Patient came in with indwelling jacobson catheter from home. Catheter was placed secondary to BPH was placed by urology. Leukocytosis due to sepsis, UTI. WBC TRENDING DOWN. Coronary artery disease s/p CABG. This is stable, no chest pain or shortness of breath. On Aspirin, Lopressor Hypertensive urgency. Blood pressure now stable after adding Hydralazine 50 mg by mouth every 8 hours to Norvasc, Lopressor. Hyperlipidemia- cont statin Hypokalemia-replace and check magnesium Protein calorie malnutrition-BMI 19.9-patient failed swallow eval today To nothing by mouth. Family discussing next options. NG tube placed to replace will obtain GI consultation for possible PEG placement. Dementia. He is cared for at home by family members Failure to thrive-ongoing in the past 6 months gradual decline per Family. Discussed with the patients daughter DVT prophylaxis with subcutaneous heparin Disposition-awaiting placement. Patient being R restraints is restricted this from happening. I have discussed with nursing staff about employment modalities to reduce this. If no improvement may need a psych consult. Full CODE STATUS History Interval history: Admitted with fall and confusion, Patient seen and examined this morning in no acute distress, still in restraints Denies any chest pain, nausea, vomiting, diarrhea No fever noted blood pressure controlled No adverse events reported to me by nursing staff Hospitalist Physical - Physical exam Narrative exam: VITAL SIGNS: Reviewed. GENERAL: The patient appeared well nourished and normally developed. On soft restraints for safety. Vital signs as documented. HEAD: No signs of head trauma. EYES: Pupils are equal. Extraocular motions intact. EARS: Hearing grossly intact. MOUTH: Oropharynx is normal except for missing dentition. NECK: No adenopathy, no JVD. CHEST: Chest with clear breath sounds bilaterally. No wheezes, rales, or rhonchi. CARDIAC: Tachycardia. S1 and S2, without murmurs, gallops, or rubs. VASCULAR: No Edema. Peripheral pulses normal and equal in all extremities. ABDOMEN: Soft, without detectable tenderness. No sign of distention. No rebound or guarding, and no masses palpated. Bowel Sounds normal. MUSCULOSKELETAL: Good range of motion of all major joints. Extremities without clubbing, cyanosis or edema. NEUROLOGIC EXAM: Alert and oriented x 2. intermittently confused No focal sensory or strength deficits. Speech slow. Follows commands. PSYCHIATRIC: Mood normal. SKIN: No rash or lesions. - Constitutional Vitals: Temp Pulse Resp BP Pulse Ox 97.6 F 114 H 22 150/76 96 12/26/16 15:31 12/26/16 15:49 12/26/16 15:49 12/26/16 15:56 12/26/16 15:49 General appearance: Present: no acute distress, cachectic Results - Labs CBC & Chem 7: 12/25/16 04:53 12/26/16 04:25 Labs: Laboratory Last Values WBC 13.3 K/mm3 (4.5-11.0) H 12/25/16 04:53 RBC 4.53 M/mm3 (3.65-5.03) 12/25/16 04:53 Hgb 12.6 gm/dl (11.8-15.2) 12/25/16 04:53 Hct 38.7 % (35.5-45.6) 12/25/16 04:53 MCV 85 fl (84-94) 12/25/16 04:53 MCH 28 pg (28-32) 12/25/16 04:53 MCHC 33 % (32-34) 12/25/16 04:53 RDW 17.3 % (13.2-15.2) H 12/25/16 04:53 Plt Count 238 K/mm3 (140-440) 12/25/16 04:53 Lymph % (Auto) 19.0 % (13.4-35.0) 12/16/16 07:20 [place] % (Auto) 9.4 % (0.0-7.3) H 12/16/16 07:20 Eos % (Auto) 6.1 % (0.0-4.3) H 12/16/16 07:20 Baso % (Auto) 0.6 % (0.0-1.8) 12/16/16 07:20 Lymph # 1.9 K/mm3 (1.2-5.4) 12/16/16 07:20 [place] # 0.9 K/mm3 (0.0-0.8) H 12/16/16 07:20 Eos # 0.6 K/mm3 (0.0-0.4) H 12/16/16 07:20 Baso # 0.1 K/mm3 (0.0-0.1) 12/16/16 07:20 Seg Neutrophils % 64.9 % (40.0-70.0) 12/16/16 07:20 Seg Neutrophils # 6.3 K/mm3 (1.8-7.7) 12/16/16 07:20 PT 13.2 Sec. (12.2-14.9) 12/26/16 04:25 INR 1.01 (0.87-1.13) 12/26/16 04:25 APTT 31.7 Sec. (24.2-36.6) 12/26/16 04:25 Sodium 146 mmol/L (137-145) H 12/26/16 04:25 Potassium 3.5 mmol/L (3.6-5.0) L 12/26/16 04:25 Chloride 109.1 mmol/L (98-107) H 12/26/16 04:25 Carbon Dioxide 22 mmol/L (22-30) 12/26/16 04:25 Anion Gap 18 mmol/L 12/26/16 04:25 BUN 24 mg/dL (9-20) H 12/26/16 04:25 Creatinine 0.8 mg/dL (0.8-1.5) 12/26/16 04:25 Estimated GFR > 60 ml/min 12/26/16 04:25 BUN/Creatinine Ratio 30.00 % 12/26/16 04:25 Glucose 99 mg/dL (75-100) 12/26/16 04:25 POC Glucose 132 (70-105) H 12/25/16 20:53 Lactic Acid 2.1 mmol/L (0.7-2.0) H* 12/16/16 21:48 Calcium 8.2 mg/dL (8.4-10.2) L 12/26/16 04:25 Magnesium 1.6 mg/dL (1.7-2.3) L 12/25/16 17:21 Iron 45 ug/dL (49-181) L 12/16/16 11:14 TIBC 333.20 mcg/dL (250-450) 12/16/16 11:14 % Saturation 13.51 % 12/16/16 11:14 Transferrin 238 mg/dl (180-329) 12/16/16 11:14 Total Creatine Kinase 82 units/L (55-170) 12/17/16 05:35 CK-MB (CK-2) 2.7 ng/mL (0.0-4.0) 12/17/16 05:35 CK-MB (CK-2) Rel Index 3.2 (0-4) 12/17/16 05:35 Albumin 3.1 g/dL (3.9-5) L 12/22/16 17:28 Urine Color Yellow (Yellow) 12/20/16 Unknown Urine Turbidity Cloudy (Clear) 12/20/16 Unknown Urine pH 5.0 (5.0-7.0) 12/20/16 Unknown Ur Specific [place] 1.012 (1.003-1.030) 12/20/16 Unknown Urine Protein 30 mg/dl mg/dL (Negative) 12/20/16 Unknown Urine Glucose (UA) Neg mg/dL (Negative) 12/20/16 Unknown Urine Ketones Neg mg/dL (Negative) 12/20/16 Unknown Urine Blood Mod (Negative) 12/20/16 Unknown Urine Nitrite Neg (Negative) 12/20/16 Unknown Ur Reducing Substances Not Reportable 12/20/16 Unknown Urine Bilirubin Neg (Negative) 12/20/16 Unknown Urine Ictotest Not Reportable 12/20/16 Unknown Urine Urobilinogen < 2.0 mg/dL (<2.0) 12/20/16 Unknown Ur Leukocyte Esterase Lg (Negative) 12/20/16 Unknown Urine WBC (Auto) 181.0 /HPF (0.0-6.0) H 12/20/16 Unknown Urine RBC (Auto) 44.0 /HPF (0.0-6.0) 12/20/16 Unknown U Epithel Cells (Auto) 1.0 /HPF (0-13.0) 12/20/16 Unknown Urine Bacteria (Auto) 1+ /HPF (Negative) 12/20/16 Unknown Urine WBC Clumps 2+ /HPF 12/20/16 Unknown Amorphous Crystals Few 12/16/16 08:28 Hyaline Casts 2 /LPF 12/20/16 Unknown Urine Mucus 1+ /HPF 12/20/16 Unknown Urine Yeast (Budding) 3+ /HPF 12/20/16 Unknown Urine Sperm Few /HPF (LIME VAT TENDER) 12/20/16 Unknown Blood Type B POSITIVE 12/16/16 07:20 Antibody Screen Negative 12/16/16 07:20
--- NOTE | 2016-12-26 16:40 | Post Anesthesia Evaluation ---
- Post Anesthesia Evaluation Patient Participated: Yes Airway Patent: Yes Stable Respiratory Function: Yes Nausea/Vomiting: No Temp > 96.8F: Yes Pain Manageable: Yes Adequeate Hydration: Yes Anesthesia Complications: No Block Receding Appropriately: Not Applicable Patient on Ventilator: No
[2016-12-26] MEDS: HALDOL PO SCH ×2 (20:06→23:01)
[2016-12-26] MEDS: BABY ASPIRIN PO SCH (20:06)
[2016-12-26] MEDS: LOPRESSOR PO SCH (20:06)
[2016-12-26] MEDS: CYMBALTA PO SCH (20:06)
[2016-12-26] MEDS: NORVASC PO SCH (20:06)
--- NOTE | 2016-12-26 20:56 | Operative Report ---
PROCEDURE: EGD with PEG tube placement. INDICATION: 1. Dysphagia. 2. Weight loss. MEDICATIONS: Propofol per MED ASST. COMPLICATIONS: None. DESCRIPTION OF PROCEDURE: The patient was brought to the procedure suite. The patient had the procedure previously discussed with family at length. All risks, complications, and benefits were discussed after which consent was gotten for the procedure to be performed. The patient was placed in supine position. Mouth block was placed in the patient's oral cavity. After adequate sedation medication as above, endoscope was placed into the mouth and brought to the level of the second portion of duodenum. Retroflexion view performed. The patient's vital signs remained stable throughout the procedure. FINDINGS: There was noted to be a small to medium hiatal hernia at GE junction. Mild gastritis noted in the stomach. Duodenum appeared normal. EGD otherwise normal. Retroflexion showed no other pathology other than noted above. After this, especially using standard technique and transillumination, an area for adequate placement of PEG was found. Using standard technique, a 20-Armenian pull PEG was then placed. Bump was noted to be at 3 cm. Post-procedure, the patient was satisfactory. The patient tolerated the procedure well. No complications during the procedure. IMPRESSION: 1. Hiatal hernia. 2. Mild gastritis. 3. Otherwise, normal EGD. 4. PEG tube placement without obvious complications. RECOMMENDATIONS: 1. Standard PEG tube orders, see chart. 2. Watch for signs of bleeding, infection. 2. Okay to use PEG after 6 hours. 3. We will follow up in a.m. JOB# [id number] [facility]
[2016-12-26] MEDS: LaMICtal PO SCH (23:01)
[2016-12-26] MEDS: FLOMAX PO SCH (23:02)
[2016-12-26] MEDS: PAMELOR PO SCH (23:11)
[2016-12-27] MEDS: ALPHAGAN P 0.15% OU SCH ×3 (04:35→20:30)
[2016-12-27] MEDS: APRESOLINE PO SCH ×2 (05:50→17:18)
[2016-12-27] MEDS: ZOSYN/NS 4.5GM/100ML 4.5 GM/100 ML VIAL IV SCH ×2 (06:34→17:22)
[2016-12-27 06:37] LABS: Alanine Aminotransferase 43 units/L (7-56); Albumin 2.8 g/dL (3.9-5); Albumin/Globulin Ratio 0.8 %; Alkaline Phosphatase 96 units/L (35-129); Anion Gap 20 mmol/L; Bilirubin,Total 0.6 mg/dL (0.1-1.2); Blood Urea Nitrogen 20 mg/dL (9-20); Calcium 8.3 mg/dL (8.4-10.2); Carbon Dioxide 21 mmol/L (22-30); Chloride 105.2 mmol/L (98-107); Glucose 87 mg/dL (75-100); Potassium 3.6 mmol/L (3.6-5.0); Sodium 143 mmol/L (137-145); Total Protein 6.1 g/dL (6.3-8.2)
[2016-12-27] MEDS: DUONEB 0.5 MG-3 MG/3 ML SOLN IH SCH ×3 (09:20→21:10)
[2016-12-27] MEDS: NORVASC PO SCH (10:00)
[2016-12-27] MEDS: BABY ASPIRIN PO SCH (10:00)
[2016-12-27] MEDS: CYMBALTA PO SCH (10:00)
[2016-12-27] MEDS: LOPRESSOR PO SCH (10:00)
[2016-12-27] MEDS: COLACE PO SCH (10:00)
[2016-12-27] MEDS: HALDOL PO SCH (10:00)
--- NOTE | 2016-12-27 11:43 | Gastroenterology Progress Note ---
Assessment and Plan 1. FTT 2.Malnutrition -S/P PEG placement. Site benign. Bumper offloaded to skin. Nutritional consult to start TF per protocol. -No further GI intervention needed. GI will sign off. Subjective Date of service: 12/27/16 Interval history: S/P PEG placement, site benign. Patient drowsy Objective - Constitutional Vitals: Temp Pulse Resp BP Pulse Ox 99.1 F 104 H 20 100/59 98 12/27/16 08:00 12/27/16 09:29 12/27/16 09:29 12/27/16 08:00 12/27/16 09:22 General appearance: no acute distress, other - Gastrointestinal General gastrointestinal: Present: soft, non-tender, normal bowel sounds, other (PEG site benign.) - Integumentary Integumentary: Present: warm, dry, pale - Labs CBC & Chem 7: 12/25/16 04:53 12/27/16 05:46 Labs: Laboratory Results - last 24 hr 12/26/16 12/26/16 12/26/16 08:56 11:44 17:37 Sodium Potassium Chloride Carbon Dioxide Anion Gap BUN Creatinine Estimated GFR BUN/Creatinine Ratio Glucose POC Glucose 129 H 112 H 95 Calcium Total Bilirubin AST ALT Alkaline Phosphatase Total Protein Albumin Albumin/Globulin Ratio 12/26/16 12/27/16 12/27/16 22:50 05:46 07:16 Sodium 143 Potassium 3.6 Chloride 105.2 Carbon Dioxide 21 L Anion Gap 20 BUN 20 Creatinine 0.8 Estimated GFR > 60 BUN/Creatinine Ratio 25.00 Glucose 87 POC Glucose 71 81 Calcium 8.3 L Total Bilirubin 0.6 AST 132 H ALT 43 Alkaline Phosphatase 96 Total Protein 6.1 L Albumin 2.8 L Albumin/Globulin Ratio 0.8
[2016-12-27] MEDS ORDERED: PANCREAZE DR 10,500 UNIT FEEDTUBE PRN (13:46)
[2016-12-27] MEDS ORDERED: SODIUM BICARBONATE FEEDTUBE PRN (13:46)
[2016-12-27] MEDS ORDERED: SIMPLE SYRUP FEEDTUBE PRN ×2 (13:46)
--- NOTE | 2016-12-27 16:37 | Progress Note ---
Assessment and Plan - Patient Problems (1) Sepsis Current Visit: No Status: Resolved Qualifiers: Sepsis type: S Plan to address problem: Continue full course abx therapy (2) Encephalopathy Current Visit: Yes Status: Acute Plan to address problem: Metabolic encephalopathy: resolved with sepsis, continue current therapy (3) Dementia Current Visit: Yes Status: Chronic Qualifiers: Dementia type: unspecified type Alzheimer's disease onset: A Dementia behavioral disturbance: without behavioral disturbance Qualified Code(s): F03.90 - Unspecified dementia without behavioral disturbance Plan to address problem: Pt status is improved, Ativan prn, D/C restraints, (4) Malnutrition Current Visit: Yes Status: Acute Plan to address problem: PEG tub placed, encourage intake prn (5) UTI (urinary tract infection) with pyuria Current Visit: No Status: Acute Plan to address problem: Continue full course abx. (6) DVT prophylaxis Current Visit: Yes Status: Acute History Interval history: Pt lying in bed, Pt denies complaints. Pt in good spirits, No reported nursing events overnight. Pending placement, Restraints discontinued today. D/C in AM. Hospitalist Physical - Constitutional Vitals: Temp Pulse Resp BP Pulse Ox 99 F 99 H 16 88/64 98 12/27/16 12:00 12/27/16 14:50 12/27/16 14:50 12/27/16 12:00 12/27/16 09:22 General appearance: Present: no acute distress, cachectic - EENT Eyes: Present: PERRL ENT: hearing intact - Neck Neck: Present: supple - Respiratory Respiratory: bilateral: diminished - Cardiovascular Rhythm: regular Heart Sounds: Present: S1 & S2 - Extremities Extremities: no ischemia - Abdominal General gastrointestinal: soft, non-distended - Integumentary Integumentary: Present: clear, dry, decreased turgor - Psychiatric Psychiatric: cooperative - Neurologic Neurologic: no gait normal Results - Labs CBC & Chem 7: 12/25/16 04:53 12/27/16 05:46 Labs: Laboratory Last Values WBC 13.3 K/mm3 (4.5-11.0) H 12/25/16 04:53 RBC 4.53 M/mm3 (3.65-5.03) 12/25/16 04:53 Hgb 12.6 gm/dl (11.8-15.2) 12/25/16 04:53 Hct 38.7 % (35.5-45.6) 12/25/16 04:53 MCV 85 fl (84-94) 12/25/16 04:53 MCH 28 pg (28-32) 12/25/16 04:53 MCHC 33 % (32-34) 12/25/16 04:53 RDW 17.3 % (13.2-15.2) H 12/25/16 04:53 Plt Count 238 K/mm3 (140-440) 12/25/16 04:53 Lymph % (Auto) 19.0 % (13.4-35.0) 12/16/16 07:20 [place] % (Auto) 9.4 % (0.0-7.3) H 12/16/16 07:20 Eos % (Auto) 6.1 % (0.0-4.3) H 12/16/16 07:20 Baso % (Auto) 0.6 % (0.0-1.8) 12/16/16 07:20 Lymph # 1.9 K/mm3 (1.2-5.4) 12/16/16 07:20 [place] # 0.9 K/mm3 (0.0-0.8) H 12/16/16 07:20 Eos # 0.6 K/mm3 (0.0-0.4) H 12/16/16 07:20 Baso # 0.1 K/mm3 (0.0-0.1) 12/16/16 07:20 Seg Neutrophils % 64.9 % (40.0-70.0) 12/16/16 07:20 Seg Neutrophils # 6.3 K/mm3 (1.8-7.7) 12/16/16 07:20 PT 13.2 Sec. (12.2-14.9) 12/26/16 04:25 INR 1.01 (0.87-1.13) 12/26/16 04:25 APTT 31.7 Sec. (24.2-36.6) 12/26/16 04:25 Sodium 143 mmol/L (137-145) 12/27/16 05:46 Potassium 3.6 mmol/L (3.6-5.0) 12/27/16 05:46 Chloride 105.2 mmol/L (98-107) 12/27/16 05:46 Carbon Dioxide 21 mmol/L (22-30) L 12/27/16 05:46 Anion Gap 20 mmol/L 12/27/16 05:46 BUN 20 mg/dL (9-20) 12/27/16 05:46 Creatinine 0.8 mg/dL (0.8-1.5) 12/27/16 05:46 Estimated GFR > 60 ml/min 12/27/16 05:46 BUN/Creatinine Ratio 25.00 % 12/27/16 05:46 Glucose 87 mg/dL (75-100) 12/27/16 05:46 POC Glucose 73 (70-105) 12/27/16 16:18 Lactic Acid 2.1 mmol/L (0.7-2.0) H* 12/16/16 21:48 Calcium 8.3 mg/dL (8.4-10.2) L 12/27/16 05:46 Magnesium 1.6 mg/dL (1.7-2.3) L 12/25/16 17:21 Iron 45 ug/dL (49-181) L 12/16/16 11:14 TIBC 333.20 mcg/dL (250-450) 12/16/16 11:14 % Saturation 13.51 % 12/16/16 11:14 Transferrin 238 mg/dl (180-329) 12/16/16 11:14 Total Bilirubin 0.6 mg/dL (0.1-1.2) 12/27/16 05:46 AST 132 units/L (5-40) H 12/27/16 05:46 ALT 43 units/L (7-56) 12/27/16 05:46 Alkaline Phosphatase 96 units/L (35-129) 12/27/16 05:46 Total Creatine Kinase 82 units/L (55-170) 12/17/16 05:35 CK-MB (CK-2) 2.7 ng/mL (0.0-4.0) 12/17/16 05:35 CK-MB (CK-2) Rel Index 3.2 (0-4) 12/17/16 05:35 Total Protein 6.1 g/dL (6.3-8.2) L 12/27/16 05:46 Albumin 2.8 g/dL (3.9-5) L 12/27/16 05:46 Albumin/Globulin Ratio 0.8 % 12/27/16 05:46 Urine Color Yellow (Yellow) 12/20/16 Unknown Urine Turbidity Cloudy (Clear) 12/20/16 Unknown Urine pH 5.0 (5.0-7.0) 12/20/16 Unknown Ur Specific [place] 1.012 (1.003-1.030) 12/20/16 Unknown Urine Protein 30 mg/dl mg/dL (Negative) 12/20/16 Unknown Urine Glucose (UA) Neg mg/dL (Negative) 12/20/16 Unknown Urine Ketones Neg mg/dL (Negative) 12/20/16 Unknown Urine Blood Mod (Negative) 12/20/16 Unknown Urine Nitrite Neg (Negative) 12/20/16 Unknown Ur Reducing Substances Not Reportable 12/20/16 Unknown Urine Bilirubin Neg (Negative) 12/20/16 Unknown Urine Ictotest Not Reportable 12/20/16 Unknown Urine Urobilinogen < 2.0 mg/dL (<2.0) 12/20/16 Unknown Ur Leukocyte Esterase Lg (Negative) 12/20/16 Unknown Urine WBC (Auto) 181.0 /HPF (0.0-6.0) H 12/20/16 Unknown Urine RBC (Auto) 44.0 /HPF (0.0-6.0) 12/20/16 Unknown U Epithel Cells (Auto) 1.0 /HPF (0-13.0) 12/20/16 Unknown Urine Bacteria (Auto) 1+ /HPF (Negative) 12/20/16 Unknown Urine WBC Clumps 2+ /HPF 12/20/16 Unknown Amorphous Crystals Few 12/16/16 08:28 Hyaline Casts 2 /LPF 12/20/16 Unknown Urine Mucus 1+ /HPF 12/20/16 Unknown Urine Yeast (Budding) 3+ /HPF 12/20/16 Unknown Urine Sperm Few /HPF (ANTIQUE AUTO MUSEUM MAINTENANCE WORKER) 12/20/16 Unknown Blood Type B POSITIVE 12/16/16 07:20 Antibody Screen Negative 12/16/16 07:20
[2016-12-27] MEDS: PAMELOR PO SCH (23:30)
[2016-12-28] MEDS: APRESOLINE PO SCH ×4 (03:00→23:18)
[2016-12-28] MEDS: FLOMAX PO SCH (03:01)
[2016-12-28] MEDS: HALDOL PO SCH ×3 (03:01→23:20)
[2016-12-28] MEDS: ZOSYN/NS 4.5GM/100ML 4.5 GM/100 ML VIAL IV SCH ×4 (03:02→23:11)
[2016-12-28] MEDS: ALPHAGAN P 0.15% OU SCH ×3 (04:59→18:30)
[2016-12-28] MEDS: DUONEB 0.5 MG-3 MG/3 ML SOLN IH SCH ×3 (09:42→21:31)
[2016-12-28] MEDS: BABY ASPIRIN PO SCH (10:32)
[2016-12-28] MEDS: COLACE PO SCH (10:32)
[2016-12-28] MEDS: CYMBALTA PO SCH (10:32)
[2016-12-28] MEDS: NORVASC PO SCH (10:47)
[2016-12-28] MEDS: LOPRESSOR PO SCH (10:47)
--- NOTE | 2016-12-28 11:47 | Progress Note ---
Assessment and Plan Assessment and plan: Toxic metabolic encephalopathy due to UTI and sepsis. Supportive care, neurochecks Sepsis secondary to UTI. Continue Levaquin 750 mg IV daily. Supportive care UTI. Levaquin IV. Patient came in with indwelling jacobson catheter from home. Leukocytosis due to sepsis, UTI. Coronary artery disease s/p CABG. This is stable, no chest pain or shortness of breath. On Aspirin, Lopressor Hypertensive urgency. Blood pressure now stable. Hyperlipidemia Dementia. He is cared for at home by family members. Malnutrition, s/p PEG tube placement DVT prophylaxis with subcutaneous heparin Full CODE STATUS To d/c to SNF when off restraints for 24 hrs. Discussed with Case management. History Interval history: Patient admitted with altered mental status found to have sepsis, UTI confused, agitated, on restraints No new events overnight Hospitalist Physical - Physical exam Narrative exam: Gen: not in acute distress, HEENT: normocephalic,atraumatic Neck :supple, no JVD Lungs: clear to auscultation bilaterally, no crackles no wheezes Heart: S1 and S2 regular, no murmurs no gallops, Abdomen: soft non-tender, non-distended, normal bowel sounds, PEG tube Extremities: no edema, clubbing or cyanosis, Neuro: Awake, on restraints - Constitutional Vitals: Temp Pulse Resp BP Pulse Ox 98.2 F 91 H 18 105/60 100 12/28/16 10:00 12/28/16 10:47 12/28/16 10:00 12/28/16 10:47 12/28/16 10:00 General appearance: Present: no acute distress, cachectic Results - Labs CBC & Chem 7: 12/25/16 04:53 12/27/16 05:46 Labs: Laboratory Last Values WBC 13.3 K/mm3 (4.5-11.0) H 12/25/16 04:53 RBC 4.53 M/mm3 (3.65-5.03) 12/25/16 04:53 Hgb 12.6 gm/dl (11.8-15.2) 12/25/16 04:53 Hct 38.7 % (35.5-45.6) 12/25/16 04:53 MCV 85 fl (84-94) 12/25/16 04:53 MCH 28 pg (28-32) 12/25/16 04:53 MCHC 33 % (32-34) 12/25/16 04:53 RDW 17.3 % (13.2-15.2) H 12/25/16 04:53 Plt Count 238 K/mm3 (140-440) 12/25/16 04:53 Lymph % (Auto) 19.0 % (13.4-35.0) 12/16/16 07:20 [place] % (Auto) 9.4 % (0.0-7.3) H 12/16/16 07:20 Eos % (Auto) 6.1 % (0.0-4.3) H 12/16/16 07:20 Baso % (Auto) 0.6 % (0.0-1.8) 12/16/16 07:20 Lymph # 1.9 K/mm3 (1.2-5.4) 12/16/16 07:20 [place] # 0.9 K/mm3 (0.0-0.8) H 12/16/16 07:20 Eos # 0.6 K/mm3 (0.0-0.4) H 12/16/16 07:20 Baso # 0.1 K/mm3 (0.0-0.1) 12/16/16 07:20 Seg Neutrophils % 64.9 % (40.0-70.0) 12/16/16 07:20 Seg Neutrophils # 6.3 K/mm3 (1.8-7.7) 12/16/16 07:20 PT 13.2 Sec. (12.2-14.9) 12/26/16 04:25 INR 1.01 (0.87-1.13) 12/26/16 04:25 APTT 31.7 Sec. (24.2-36.6) 12/26/16 04:25 Sodium 143 mmol/L (137-145) 12/27/16 05:46 Potassium 3.6 mmol/L (3.6-5.0) 12/27/16 05:46 Chloride 105.2 mmol/L (98-107) 12/27/16 05:46 Carbon Dioxide 21 mmol/L (22-30) L 12/27/16 05:46 Anion Gap 20 mmol/L 12/27/16 05:46 BUN 20 mg/dL (9-20) 12/27/16 05:46 Creatinine 0.8 mg/dL (0.8-1.5) 12/27/16 05:46 Estimated GFR > 60 ml/min 12/27/16 05:46 BUN/Creatinine Ratio 25.00 % 12/27/16 05:46 Glucose 87 mg/dL (75-100) 12/27/16 05:46 POC Glucose 107 (70-105) H 12/28/16 07:53 Lactic Acid 2.1 mmol/L (0.7-2.0) H* 12/16/16 21:48 Calcium 8.3 mg/dL (8.4-10.2) L 12/27/16 05:46 Magnesium 1.6 mg/dL (1.7-2.3) L 12/25/16 17:21 Iron 45 ug/dL (49-181) L 12/16/16 11:14 TIBC 333.20 mcg/dL (250-450) 12/16/16 11:14 % Saturation 13.51 % 12/16/16 11:14 Transferrin 238 mg/dl (180-329) 12/16/16 11:14 Total Bilirubin 0.6 mg/dL (0.1-1.2) 12/27/16 05:46 AST 132 units/L (5-40) H 12/27/16 05:46 ALT 43 units/L (7-56) 12/27/16 05:46 Alkaline Phosphatase 96 units/L (35-129) 12/27/16 05:46 Total Creatine Kinase 82 units/L (55-170) 12/17/16 05:35 CK-MB (CK-2) 2.7 ng/mL (0.0-4.0) 12/17/16 05:35 CK-MB (CK-2) Rel Index 3.2 (0-4) 12/17/16 05:35 Total Protein 6.1 g/dL (6.3-8.2) L 12/27/16 05:46 Albumin 2.8 g/dL (3.9-5) L 12/27/16 05:46 Albumin/Globulin Ratio 0.8 % 12/27/16 05:46 Urine Color Yellow (Yellow) 12/20/16 Unknown Urine Turbidity Cloudy (Clear) 12/20/16 Unknown Urine pH 5.0 (5.0-7.0) 12/20/16 Unknown Ur Specific [place] 1.012 (1.003-1.030) 12/20/16 Unknown Urine Protein 30 mg/dl mg/dL (Negative) 12/20/16 Unknown Urine Glucose (UA) Neg mg/dL (Negative) 12/20/16 Unknown Urine Ketones Neg mg/dL (Negative) 12/20/16 Unknown Urine Blood Mod (Negative) 12/20/16 Unknown Urine Nitrite Neg (Negative) 12/20/16 Unknown Ur Reducing Substances Not Reportable 12/20/16 Unknown Urine Bilirubin Neg (Negative) 12/20/16 Unknown Urine Ictotest Not Reportable 12/20/16 Unknown Urine Urobilinogen < 2.0 mg/dL (<2.0) 12/20/16 Unknown Ur Leukocyte Esterase Lg (Negative) 12/20/16 Unknown Urine WBC (Auto) 181.0 /HPF (0.0-6.0) H 12/20/16 Unknown Urine RBC (Auto) 44.0 /HPF (0.0-6.0) 12/20/16 Unknown U Epithel Cells (Auto) 1.0 /HPF (0-13.0) 12/20/16 Unknown Urine Bacteria (Auto) 1+ /HPF (Negative) 12/20/16 Unknown Urine WBC Clumps 2+ /HPF 12/20/16 Unknown Amorphous Crystals Few 12/16/16 08:28 Hyaline Casts 2 /LPF 12/20/16 Unknown Urine Mucus 1+ /HPF 12/20/16 Unknown Urine Yeast (Budding) 3+ /HPF 12/20/16 Unknown Urine Sperm Few /HPF (LOGISTICS SYSTEM ENGINEER) 12/20/16 Unknown Blood Type B POSITIVE 12/16/16 07:20 Antibody Screen Negative 12/16/16 07:20
--- NOTE | 2016-12-28 13:38 | Progress Note ---
Subjective - Reason for Consult Consult date: 12/28/16 Reason for consult: agitation - Chief Complaint Chief complaint: agitation, dementia Mental Status Exam - Vital signs Last Vital Signs Temp 99.1 F 12/28/16 12:00 Pulse 91 H 12/28/16 10:47 Resp 18 12/28/16 12:00 BP 99/45 12/28/16 12:00 Pulse Ox 100 12/28/16 12:00
--- NOTE | 2016-12-28 18:15 | Consultation ---
History of Present Illness - Reason for Consult Consult date: 12/28/16 Reason for consult: agitation - Chief Complaint Chief complaint: agitation, dementia - History of Present Psychiatric Illness Mr. Loera is an 81 year old male seen in the ICU step down area for concerns with agitation. He has been treated for sepsis/UTI/toxic encephalopathy. He is expected to go back to the care home soon. He requires a Amaral catheter for concerns with BPH. Staff report that he pulls at his catheter and requires restraints as a result. He is not allowed back in the care home unless he's been out of restraints for 24 hours. At the time of exam patient was in restraints. He did not appear agitated. He was oriented to person and place. He was unable to answer any additional questions. Medications and Allergies Allergies Allergy/AdvReac Type Severity Reaction Status Date / Time cefuroxime axetil Allergy Hives Verified 11/27/14 13:21 [From Ceftin] tetracycline Allergy Unknown Verified 11/27/14 13:22 Home Medications Medication Instructions Recorded Confirmed Last Taken Type Albuterol Sulfate [Proventil HFA] 1 - 2 puff IH Q4H PRN 11/27/14 12/17/16 21:00 History Aspirin [Aspirin BABY CHEW TAB] 81 mg PO QDAY 11/27/14 12/17/16 12/16/16 08:00 History Docusate Sodium [Colace CAP] 100 mg PO DAILY 11/27/14 12/17/16 12/16/16 08:00 History Duloxetine HCl [DULoxetine] 60 mg PO DAILY 11/27/14 12/17/16 12/16/16 08:00 History Metoprolol [Lopressor TAB] 25 mg PO DAILY 11/27/14 12/17/16 11/30/16 08:00 History Nortriptyline [Pamelor] 10 mg PO HS 11/27/14 12/17/16 12/16/16 21:00 History Tamsulosin [Flomax] 0.4 mg PO HS 06/14/16 12/17/16 12/16/16 21:00 History Ipratropium/Albuterol Sulfate 1 ampul IH TIDRT ampul.neb 06/21/16 12/17/16 Unknown Rx [Duoneb 0.5 mg-3 mg/3 ml Soln] amLODIPine [Norvasc] 10 mg PO QDAY 09/12/16 12/17/16 11/30/16 08:00 History Brimonidine 0.15% [Alphagan P 1 drops OP Q8H 09/16/16 12/17/16 11/30/16 08:00 History 0.15%] Methylphenidate HCl [Ritalin] 2.5 mg PO DAILY 09/16/16 12/17/16 12/16/16 08:00 History Ampicillin [Polycillin] 500 mg PO Q6H #20 capsule 12/22/16 Unknown Rx Haloperidol 0.5 mg PO BID #30 tablet 12/22/16 Unknown Rx LORazepam [Ativan] 0.5 mg PO DAILY #5 tablet 12/22/16 Unknown Rx Methylphenidate [Ritalin] 2.5 mg PO DAILY #30 tablet 12/22/16 Unknown Rx Nitrofurantoin [place]/M-Cryst 100 mg PO Q12HR #20 capsule 12/22/16 Unknown Rx [Macrobid CAP] hydrALAZINE [Apresoline TAB] 50 mg PO Q8HR #30 tablet 12/22/16 Unknown Rx lamoTRIgine [LaMICtal] 100 mg PO HS #30 tablet 12/22/16 Unknown Rx Active Meds: Active Medications Albuterol/Ipratropium (Duoneb 0.5 Mg-3 Mg/3 Ml Soln) [address] [facility] Last Admin: 12/28/16 13:40 Dose: 1 ampul Amlodipine Besylate (Norvasc) [address] [facility] Last Admin: 12/28/16 10:47 Dose: Not Given Lipase/Protease/Amylase ([place] Dr 10,500 Unit) 1 each FEEDTUBE PRN PRN PRN Reason: For Clogged Feeding Tube Aspirin (Baby Aspirin) [address] [facility] Last Admin: 12/28/16 10:32 Dose: 81 mg Brimonidine Tartrate (Alphagan P 0.15%) [address] [facility] Last Admin: 12/28/16 10:49 Dose: 1 drops Docusate Sodium (Colace) [address] [facility] Last Admin: 12/28/16 10:32 Dose: 100 mg Duloxetine HCl (Cymbalta) [address] [facility] Last Admin: 12/28/16 10:32 Dose: 60 mg Haloperidol (Haldol) 0.[address] [facility] Last Admin: 12/28/16 10:48 Dose: 0.5 mg Hydralazine HCl (Apresoline) 10 mg IV Q6HR PRN PRN Reason: HTN SYS>160 Last Admin: 12/26/16 06:48 Dose: 10 mg Hydralazine HCl (Apresoline) [address] [facility] Last Admin: 12/28/16 14:49 Dose: Not Given Sodium Chloride (Nacl 0.9% 1000 Ml) 1,000 mls @ 75 mls/hr IV DIRECT [facility] Last Admin: 12/25/16 21:39 Dose: 75 mls/hr Piperacillin Sod/Tazobactam Sod (Zosyn/Ns 4.5gm/100ml) 4.5 gm in 100 mls @ 200 mls/hr IV Q8HR MELANIE PRN Reason: Protocol Last Admin: 12/28/16 14:30 Dose: 200 mls/hr Lamotrigine (Lamictal) 100 mg PO [facility] Last Admin: 12/26/16 23:01 Dose: 100 mg Lorazepam (Ativan) 1 mg IV Q6H PRN PRN Reason: Agitation Methylphenidate HCl (Ritalin) 2.[address] [facility] Last Admin: 12/28/16 10:48 Dose: 2.5 mg Metoprolol Tartrate (Lopressor) [address] [facility] Last Admin: 12/28/16 10:47 Dose: Not Given Nortriptyline HCl (Pamelor) 10 mg PO [facility] Last Admin: 12/27/16 23:30 Dose: Not Given Simple Syrup (Simple Syrup) 15 ml FEEDTUBE PRN PRN PRN Reason: Hypoglycemia Simple Syrup (Simple Syrup) 30 ml FEEDTUBE PRN PRN PRN Reason: Hypoglycemia Sodium Bicarbonate (Sodium Bicarbonate) 325 mg FEEDTUBE PRN PRN PRN Reason: For Clogged Feeding Tube Tamsulosin HCl (Flomax) 0.4 mg PO [facility] Last Admin: 12/28/16 03:01 Dose: Not Given Past psychiatric history - Past Medical History Past Medical History: diabetes, other (dementia, Alzheimer's type) - Social History Social history: other (lives in a care home) Mental Status Exam - Vital signs Last Vital Signs Temp 97.9 F 12/28/16 16:00 Pulse 67 12/28/16 16:00 Resp 18 12/28/16 16:00 BP 101/58 12/28/16 16:00 Pulse Ox 2 L 12/28/16 16:00 - Exam Orientation: place, person Affect: normal Mood: calm Thought content: other (unable to assess) Perceptions: other (unable to assess) Speech: minimal response Concentration: other (unable to assess) Motor activity: lethargic Level of consciousness: alert Memory: Recent Impaired, Remote Impaired Interaction: other (he attempted to be cooperative. He appears to be hard of hearing) Results Result Diagrams: 12/25/16 04:53 12/27/16 05:46 Abnormal lab results 12/28/16 12/28/16 Range/Units 07:53 11:48 POC Glucose 107 H 108 H (70-105) All other labs normal. Assessment and Plan Assessment and plan: Impression:Dementia with behavioral disturbance. Delirium is as a possibility Recommendation: Increase the frequency of the Haldol to 0.5 mg 3 times a day to address concerns with agitation Consider alternatives to restraints
[2016-12-28] MEDS: PAMELOR PO SCH (23:20)
[2016-12-28] MEDS: LaMICtal PO SCH (23:20)
[2016-12-29] MEDS: ALPHAGAN P 0.15% OU SCH ×3 (03:31→19:02)
[2016-12-29] MEDS: TRIPLE ANTIBIOTIC TP SCH ×2 (03:37→11:23)
[2016-12-29] MEDS: FLOMAX PO SCH ×2 (03:40→21:51)
[2016-12-29 06:51] LABS: Hemoglobin 9.4 gm/dl (11.8-15.2); Mean Corpuscular HGB Conc 34 % (32-34); Mean Corpuscular Hemoglobin 29 pg (28-32); Mean Corpuscular Volume 85 fl (84-94); Platelet Count 216 K/mm3 (140-440); White Blood Count 12.9 K/mm3 (4.5-11.0)
[2016-12-29 07:03] LABS: Anion Gap 16 mmol/L; BUN/Creatinine Ratio 43.33; Blood Urea Nitrogen 26 mg/dL (9-20); Calcium 8.4 mg/dL (8.4-10.2); Carbon Dioxide 25 mmol/L (22-30); Chloride 103.6 mmol/L (98-107); Glucose 137 mg/dL (75-100); Potassium 3.5 mmol/L (3.6-5.0); Sodium 141 mmol/L (137-145)
[2016-12-29] MEDS: DUONEB 0.5 MG-3 MG/3 ML SOLN IH SCH ×3 (08:25→19:55)
[2016-12-29] MEDS ORDERED: TRIPLE ANTIBIOTIC TP SCH (10:00)
[2016-12-29] MEDS: CYMBALTA PO SCH (12:01)
[2016-12-29] MEDS: HALDOL FEEDTUBE SCH ×2 (12:23→21:51)
[2016-12-29] MEDS: LOPRESSOR PO SCH (12:24)
[2016-12-29] MEDS: BABY ASPIRIN FEEDTUBE SCH (12:24)
[2016-12-29] MEDS: ZOSYN/NS 4.5GM/100ML 4.5 GM/100 ML VIAL IV SCH ×3 (14:16→21:53)
[2016-12-29] MEDS: APRESOLINE PO SCH ×3 (14:18→21:52)
[2016-12-29] MEDS: COLACE FEEDTUBE SCH (14:19)
--- NOTE | 2016-12-29 15:24 | Progress Note ---
Assessment and Plan Assessment and plan: Toxic metabolic encephalopathy due to UTI and sepsis. Supportive care, neurochecks Sepsis secondary to UTI. Continue Levaquin 750 mg IV daily. Supportive care UTI. Levaquin IV. Patient came in with indwelling jacobson catheter from home. Leukocytosis due to sepsis, UTI. Coronary artery disease s/p CABG. This is stable, no chest pain or shortness of breath. On Aspirin, Lopressor Hypertensive urgency. Blood pressure improving. Hyperlipidemia Dementia. He is cared for at home by family members. Malnutrition, s/p PEG tube placement DVT prophylaxis with subcutaneous heparin Full CODE STATUS To d/c to SNF when off restraints for 24 hrs. Still on restraints, still agitated on and off. Discussed with Case management. History Interval history: Patient admitted with altered mental status found to have sepsis, UTI confused, agitated, on restraints No new events overnight Hospitalist Physical - Physical exam Narrative exam: Gen: not in acute distress, HEENT: normocephalic,atraumatic Neck :supple, no JVD Lungs: clear to auscultation bilaterally, no crackles no wheezes Heart: S1 and S2 regular, no murmurs no gallops, Abdomen: soft non-tender, non-distended, normal bowel sounds, PEG tube Extremities: no edema, clubbing or cyanosis, Neuro: Awake, on restraints, agitated on and off - Constitutional Vitals: Temp Pulse Resp BP Pulse Ox 98.1 F 61 20 140/60 98 12/29/16 09:19 12/29/16 14:21 12/29/16 14:21 12/29/16 09:19 12/29/16 08:31 General appearance: Present: no acute distress, cachectic Results - Labs CBC & Chem 7: 12/29/16 06:12 12/29/16 06:12 Labs: Laboratory Last Values WBC 12.9 K/mm3 (4.5-11.0) H 12/29/16 06:12 RBC 3.30 M/mm3 (3.65-5.03) L 12/29/16 06:12 Hgb 9.4 gm/dl (11.8-15.2) L 12/29/16 06:12 Hct 28.0 % (35.5-45.6) L 12/29/16 06:12 MCV 85 fl (84-94) 12/29/16 06:12 MCH 29 pg (28-32) 12/29/16 06:12 MCHC 34 % (32-34) 12/29/16 06:12 RDW 17.0 % (13.2-15.2) H 12/29/16 06:12 Plt Count 216 K/mm3 (140-440) 12/29/16 06:12 Lymph % (Auto) 19.0 % (13.4-35.0) 12/16/16 07:20 Ida % (Auto) 9.4 % (0.0-7.3) H 12/16/16 07:20 Eos % (Auto) 6.1 % (0.0-4.3) H 12/16/16 07:20 Baso % (Auto) 0.6 % (0.0-1.8) 12/16/16 07:20 Lymph # 1.9 K/mm3 (1.2-5.4) 12/16/16 07:20 Ida # 0.9 K/mm3 (0.0-0.8) H 12/16/16 07:20 Eos # 0.6 K/mm3 (0.0-0.4) H 12/16/16 07:20 Baso # 0.1 K/mm3 (0.0-0.1) 12/16/16 07:20 Seg Neutrophils % 64.9 % (40.0-70.0) 12/16/16 07:20 Seg Neutrophils # 6.3 K/mm3 (1.8-7.7) 12/16/16 07:20 PT 13.2 Sec. (12.2-14.9) 12/26/16 04:25 INR 1.01 (0.87-1.13) 12/26/16 04:25 APTT 31.7 Sec. (24.2-36.6) 12/26/16 04:25 Sodium 141 mmol/L (137-145) 12/29/16 06:12 Potassium 3.5 mmol/L (3.6-5.0) L 12/29/16 06:12 Chloride 103.6 mmol/L (98-107) 12/29/16 06:12 Carbon Dioxide 25 mmol/L (22-30) 12/29/16 06:12 Anion Gap 16 mmol/L 12/29/16 06:12 BUN 26 mg/dL (9-20) H 12/29/16 06:12 Creatinine 0.6 mg/dL (0.8-1.5) L 12/29/16 06:12 Estimated GFR > 60 ml/min 12/29/16 06:12 BUN/Creatinine Ratio 43.33 % 12/29/16 06:12 Glucose 137 mg/dL (75-100) H 12/29/16 06:12 POC Glucose 91 (70-105) 12/28/16 16:46 Lactic Acid 2.1 mmol/L (0.7-2.0) H* 12/16/16 21:48 Calcium 8.4 mg/dL (8.4-10.2) 12/29/16 06:12 Magnesium 1.6 mg/dL (1.7-2.3) L 12/25/16 17:21 Iron 45 ug/dL (49-181) L 12/16/16 11:14 TIBC 333.20 mcg/dL (250-450) 12/16/16 11:14 % Saturation 13.51 % 12/16/16 11:14 Transferrin 238 mg/dl (180-329) 12/16/16 11:14 Total Bilirubin 0.6 mg/dL (0.1-1.2) 12/27/16 05:46 AST 132 units/L (5-40) H 12/27/16 05:46 ALT 43 units/L (7-56) 12/27/16 05:46 Alkaline Phosphatase 96 units/L (35-129) 12/27/16 05:46 Total Creatine Kinase 82 units/L (55-170) 12/17/16 05:35 CK-MB (CK-2) 2.7 ng/mL (0.0-4.0) 12/17/16 05:35 CK-MB (CK-2) Rel Index 3.2 (0-4) 12/17/16 05:35 Total Protein 6.1 g/dL (6.3-8.2) L 12/27/16 05:46 Albumin 2.8 g/dL (3.9-5) L 12/27/16 05:46 Albumin/Globulin Ratio 0.8 % 12/27/16 05:46 Urine Color Yellow (Yellow) 12/20/16 Unknown Urine Turbidity Cloudy (Clear) 12/20/16 Unknown Urine pH 5.0 (5.0-7.0) 12/20/16 Unknown Ur Specific [place] 1.012 (1.003-1.030) 12/20/16 Unknown Urine Protein 30 mg/dl mg/dL (Negative) 12/20/16 Unknown Urine Glucose (UA) Neg mg/dL (Negative) 12/20/16 Unknown Urine Ketones Neg mg/dL (Negative) 12/20/16 Unknown Urine Blood Mod (Negative) 12/20/16 Unknown Urine Nitrite Neg (Negative) 12/20/16 Unknown Ur Reducing Substances Not Reportable 12/20/16 Unknown Urine Bilirubin Neg (Negative) 12/20/16 Unknown Urine Ictotest Not Reportable 12/20/16 Unknown Urine Urobilinogen < 2.0 mg/dL (<2.0) 12/20/16 Unknown Ur Leukocyte Esterase Lg (Negative) 12/20/16 Unknown Urine WBC (Auto) 181.0 /HPF (0.0-6.0) H 12/20/16 Unknown Urine RBC (Auto) 44.0 /HPF (0.0-6.0) 12/20/16 Unknown U Epithel Cells (Auto) 1.0 /HPF (0-13.0) 12/20/16 Unknown Urine Bacteria (Auto) 1+ /HPF (Negative) 12/20/16 Unknown Urine WBC Clumps 2+ /HPF 12/20/16 Unknown Amorphous Crystals Few 12/16/16 08:28 Hyaline Casts 2 /LPF 12/20/16 Unknown Urine Mucus 1+ /HPF 12/20/16 Unknown Urine Yeast (Budding) 3+ /HPF 12/20/16 Unknown Urine Sperm Few /HPF (CANDY SEPARATOR HARD) 12/20/16 Unknown Blood Type B POSITIVE 12/16/16 07:20 Antibody Screen Negative 12/16/16 07:20
--- NOTE | 2016-12-29 17:02 | Progress Note ---
Subjective - Reason for Consult Consult date: 12/29/16 Reason for consult: Psychiatry Follow-up - Chief Complaint Chief complaint: Mr. Loera is an 81 year old male seen in the ICU step down area for concerns with agitation. The patient has been treated for sepsis/UTI/toxic encephalopathy. He requires a jacobson catheter for concerns with BPH. Today patient wasn't agitated or in restraints. Patient could not answer questions during assessment. Mental Status Exam - Vital signs Last Vital Signs Temp 98.1 F 12/29/16 09:19 Pulse 61 12/29/16 14:21 Resp 20 12/29/16 14:21 BP 140/60 12/29/16 09:19 Pulse Ox 98 12/29/16 08:31 - Exam Narrative exam: Unable to assess. Patient did nod to his name. Assessment and Plan Impression: Dementia like behavior. Delirium is as a possibility. Recommendation: Continue Haldol 0.5 mg BID, Cymbalta 60 mg PO daily and Ativan 1 mg IV PRN. Consider alternatives to restraints.
[2016-12-29] MEDS: PAMELOR PO SCH (21:51)
[2016-12-29] MEDS: LaMICtal PO SCH (21:51)
[2016-12-29] MEDS: ATIVAN IV PRN (23:19)
[2016-12-30] MEDS: APRESOLINE PO SCH ×3 (06:03→21:58)
[2016-12-30] MEDS: ZOSYN/NS 4.5GM/100ML 4.5 GM/100 ML VIAL IV SCH ×3 (06:04→21:55)
--- NOTE | 2016-12-30 09:13 | Discharge Summary ---
Providers - Providers Date of Admission: 12/16/16 09:15 Date of discharge: 12/30/16 Attending physician: ALDEN PRESTON 12/19/16 12:33 Speech Therapy Evaluation and Treat [CONS] Routine Reason For Exam: failed bedside swallow eval 12/21/16 11:03 Consult to Physician [CONS] Routine Consulting Provider: LAURA DAMON Reason For Exam: BPH, jacobson exchange Place consult to:: urol Notified:: office Was contact made?: Yes If yes, spoke with:: foreign Time called:: 11:10 Comment:: spoke w/ 12/23/16 11:15 Consult to Dietitian/Nutrition [CONS] Routine Physician Instructions: Reason For Exam: Reason for Consult: Write/Manage Tube Feeding 12/24/16 14:21 Consult to Physician [CONS] Routine Consulting Provider: SEBASTIEN ZHENG Reason For Exam: peg placement Place consult to:: Dr. Zheng Notified:: Georgette POP Phone number called:: Was contact made?: Yes If yes, spoke with:: Jazmyne service Time called:: 14:35 12/24/16 14:23 Speech Therapy Evaluation and Treat [CONS] Routine Reason For Exam: re-evaluate swallowing 12/27/16 18:12 Consult to Wound/ET Nurse [CONS] Routine Reason For Exam: wound eval Primary care physician: LENS SILVERER Hospitalization Condition: Fair Disposition: DC/[place] SNF W [facility] CERT - Discharge Diagnoses (1) Encephalopathy Status: Acute (2) Malnutrition Status: Acute (3) Physical deconditioning Status: Acute (4) Diabetes Status: Acute Qualifiers: Diabetes mellitus type: due to underlying condition Diabetes mellitus complication status: with kidney complications Diabetes mellitus complication detail: D Diabetic retinopathy severity: D Proliferative retinopathy type: P Diabetes mellitus macular edema: D Diabetes mellitus [facility] insulin use : D Laterality: L Chronic kidney disease stage: C Exam - Constitutional Vitals: Temp Pulse Resp BP Pulse Ox 97 F L 83 18 164/57 93 12/29/16 22:00 12/30/16 06:03 12/29/16 22:00 12/30/16 06:03 12/29/16 19:59 Plan Activity: advance as tolerated Diet: other (tube feed) Follow up with: MEGAN WILDER MD [Referring] - 7 Days PRIMARY CARE, [Primary Care Provider] - 3-5 Days Prescriptions: Haloperidol 0.5 mg PO BID #30 tablet hydrALAZINE [Apresoline TAB] 50 mg PO Q8HR #30 tablet lamoTRIgine [LaMICtal] 100 mg PO HS #30 tablet LORazepam [Ativan] 0.5 mg PO DAILY #5 tablet Methylphenidate [Ritalin] 2.5 mg PO DAILY #30 tablet
[2016-12-30] MEDS: DUONEB 0.5 MG-3 MG/3 ML SOLN IH SCH ×3 (09:29→19:58)
[2016-12-30] MEDS: LOPRESSOR PO SCH (10:25)
[2016-12-30] MEDS: NORVASC FEEDTUBE SCH (10:26)
[2016-12-30] MEDS: HALDOL FEEDTUBE SCH ×2 (10:27→22:01)
[2016-12-30] MEDS: COLACE FEEDTUBE SCH (10:27)
[2016-12-30] MEDS: BABY ASPIRIN FEEDTUBE SCH (10:27)
[2016-12-30] MEDS: TRIPLE ANTIBIOTIC TP SCH (10:28)
[2016-12-30] MEDS: CYMBALTA PO SCH (14:44)
[2016-12-30] MEDS: ALPHAGAN P 0.15% OU SCH ×2 (14:45→18:39)
--- NOTE | 2016-12-30 16:08 | Progress Note ---
Assessment and Plan Assessment and plan: Toxic metabolic encephalopathy due to UTI and sepsis. Supportive care, neurochecks Sepsis secondary to UTI. Continue Levaquin 750 mg IV daily. Supportive care UTI. Levaquin IV. Patient came in with indwelling jacobson catheter from home. Leukocytosis due to sepsis, UTI. Coronary artery disease s/p CABG. This is stable, no chest pain or shortness of breath. On Aspirin, Lopressor Hypertensive urgency. Blood pressure improving. Hyperlipidemia Dementia. He is cared for at home by family members. Malnutrition, s/p PEG tube placement DVT prophylaxis with subcutaneous heparin Full CODE STATUS Has been off restraints for 24 hours now. He is medically stable for discharge to SNF. Discharge orders put in but he did not go. - Patient Problems (1) Encephalopathy Current Visit: Yes Status: Acute (2) Malnutrition Current Visit: Yes Status: Acute (3) Physical deconditioning Current Visit: Yes Status: Acute (4) Diabetes Current Visit: No Status: Acute Qualifiers: Diabetes mellitus type: due to underlying condition Diabetes mellitus complication status: with kidney complications Diabetes mellitus complication detail: D Diabetic retinopathy severity: D Proliferative retinopathy type: P Diabetes mellitus macular edema: D Diabetes mellitus [facility] insulin use : D Laterality: L Chronic kidney disease stage: C History Interval history: Patient admitted with altered mental status found to have sepsis, UTI confused, agitated, No new events overnight Hospitalist Physical - Physical exam Narrative exam: Gen: not in acute distress,agitated on and off HEENT: normocephalic,atraumatic Neck :supple, no JVD Lungs: clear to auscultation bilaterally, no crackles no wheezes Heart: S1 and S2 regular, no murmurs no gallops, Abdomen: soft non-tender, non-distended, normal bowel sounds, PEG tube Extremities: no edema, clubbing or cyanosis, Neuro: Awake, agitated on and off - Constitutional Vitals: Temp Pulse Resp BP Pulse Ox 98.1 F 74 18 145/61 97 12/30/16 12:41 12/30/16 15:17 12/30/16 15:17 12/30/16 12:41 12/30/16 12:41 General appearance: Present: no acute distress, cachectic Results - Labs CBC & Chem 7: 01/02/17 04:37 01/02/17 04:37 Labs: Laboratory Last Values WBC 12.9 K/mm3 (4.5-11.0) H 12/29/16 06:12 RBC 3.30 M/mm3 (3.65-5.03) L 12/29/16 06:12 Hgb 9.4 gm/dl (11.8-15.2) L 12/29/16 06:12 Hct 28.0 % (35.5-45.6) L 12/29/16 06:12 MCV 85 fl (84-94) 12/29/16 06:12 MCH 29 pg (28-32) 12/29/16 06:12 MCHC 34 % (32-34) 12/29/16 06:12 RDW 17.0 % (13.2-15.2) H 12/29/16 06:12 Plt Count 216 K/mm3 (140-440) 12/29/16 06:12 Lymph % (Auto) 19.0 % (13.4-35.0) 12/16/16 07:20 [place] % (Auto) 9.4 % (0.0-7.3) H 12/16/16 07:20 Eos % (Auto) 6.1 % (0.0-4.3) H 12/16/16 07:20 Baso % (Auto) 0.6 % (0.0-1.8) 12/16/16 07:20 Lymph # 1.9 K/mm3 (1.2-5.4) 12/16/16 07:20 [place] # 0.9 K/mm3 (0.0-0.8) H 12/16/16 07:20 Eos # 0.6 K/mm3 (0.0-0.4) H 12/16/16 07:20 Baso # 0.1 K/mm3 (0.0-0.1) 12/16/16 07:20 Seg Neutrophils % 64.9 % (40.0-70.0) 12/16/16 07:20 Seg Neutrophils # 6.3 K/mm3 (1.8-7.7) 12/16/16 07:20 PT 13.2 Sec. (12.2-14.9) 12/26/16 04:25 INR 1.01 (0.87-1.13) 12/26/16 04:25 APTT 31.7 Sec. (24.2-36.6) 12/26/16 04:25 Sodium 141 mmol/L (137-145) 12/29/16 06:12 Potassium 3.5 mmol/L (3.6-5.0) L 12/29/16 06:12 Chloride 103.6 mmol/L (98-107) 12/29/16 06:12 Carbon Dioxide 25 mmol/L (22-30) 12/29/16 06:12 Anion Gap 16 mmol/L 12/29/16 06:12 BUN 26 mg/dL (9-20) H 12/29/16 06:12 Creatinine 0.6 mg/dL (0.8-1.5) L 12/29/16 06:12 Estimated GFR > 60 ml/min 12/29/16 06:12 BUN/Creatinine Ratio 43.33 % 12/29/16 06:12 Glucose 137 mg/dL (75-100) H 12/29/16 06:12 POC Glucose 80 (70-105) 12/29/16 22:11 Lactic Acid 2.1 mmol/L (0.7-2.0) H* 12/16/16 21:48 Calcium 8.4 mg/dL (8.4-10.2) 12/29/16 06:12 Magnesium 1.6 mg/dL (1.7-2.3) L 12/25/16 17:21 Iron 45 ug/dL (49-181) L 12/16/16 11:14 TIBC 333.20 mcg/dL (250-450) 12/16/16 11:14 % Saturation 13.51 % 12/16/16 11:14 Transferrin 238 mg/dl (180-329) 12/16/16 11:14 Total Bilirubin 0.6 mg/dL (0.1-1.2) 12/27/16 05:46 AST 132 units/L (5-40) H 12/27/16 05:46 ALT 43 units/L (7-56) 12/27/16 05:46 Alkaline Phosphatase 96 units/L (35-129) 12/27/16 05:46 Total Creatine Kinase 82 units/L (55-170) 12/17/16 05:35 CK-MB (CK-2) 2.7 ng/mL (0.0-4.0) 12/17/16 05:35 CK-MB (CK-2) Rel Index 3.2 (0-4) 12/17/16 05:35 Total Protein 6.1 g/dL (6.3-8.2) L 12/27/16 05:46 Albumin 2.8 g/dL (3.9-5) L 12/27/16 05:46 Albumin/Globulin Ratio 0.8 % 12/27/16 05:46 Urine Color Yellow (Yellow) 12/20/16 Unknown Urine Turbidity Cloudy (Clear) 12/20/16 Unknown Urine pH 5.0 (5.0-7.0) 12/20/16 Unknown Ur Specific [place] 1.012 (1.003-1.030) 12/20/16 Unknown Urine Protein 30 mg/dl mg/dL (Negative) 12/20/16 Unknown Urine Glucose (UA) Neg mg/dL (Negative) 12/20/16 Unknown Urine Ketones Neg mg/dL (Negative) 12/20/16 Unknown Urine Blood Mod (Negative) 12/20/16 Unknown Urine Nitrite Neg (Negative) 12/20/16 Unknown Ur Reducing Substances Not Reportable 12/20/16 Unknown Urine Bilirubin Neg (Negative) 12/20/16 Unknown Urine Ictotest Not Reportable 12/20/16 Unknown Urine Urobilinogen < 2.0 mg/dL (<2.0) 12/20/16 Unknown Ur Leukocyte Esterase Lg (Negative) 12/20/16 Unknown Urine WBC (Auto) 181.0 /HPF (0.0-6.0) H 12/20/16 Unknown Urine RBC (Auto) 44.0 /HPF (0.0-6.0) 12/20/16 Unknown U Epithel Cells (Auto) 1.0 /HPF (0-13.0) 12/20/16 Unknown Urine Bacteria (Auto) 1+ /HPF (Negative) 12/20/16 Unknown Urine WBC Clumps 2+ /HPF 12/20/16 Unknown Amorphous Crystals Few 12/16/16 08:28 Hyaline Casts 2 /LPF 12/20/16 Unknown Urine Mucus 1+ /HPF 12/20/16 Unknown Urine Yeast (Budding) 3+ /HPF 12/20/16 Unknown Urine Sperm Few /HPF (TAXATION AGENT) 12/20/16 Unknown Blood Type B POSITIVE 12/16/16 07:20 Antibody Screen Negative 12/16/16 07:20
--- NOTE | 2016-12-30 20:32 | Progress Note ---
Subjective - Reason for Consult Reason for consult: psych management - Chief Complaint Chief complaint: Mr. Loera is an 81 year old male who we've been asked to see for concerns over his agitation. Patient was sleeping when I went to see him today. When awaken he was confused and mumbled a few words when asked specific questions. When discussed with a staff member working with him she noted that he was off restraints and not agitated up until we spoke. Mental Status Exam - Vital signs Last Vital Signs Temp 99.7 F H 12/30/16 20:02 Pulse 73 12/30/16 20:02 Resp 16 12/30/16 20:02 BP 123/57 12/30/16 20:02 Pulse Ox 100 12/30/16 20:02 - Exam Orientation: person Affect: normal Mood: other (no answer) Thought Process: Circumstantial, Tangential, Disoriented Speech: minimal response Concentration: distractible, unable to pay attention Motor activity: normal Level of consciousness: sedated Memory: Recent Impaired, Remote Impaired Interaction: cooperative Mini mental status exam(if necessary): 0-17 Assessment and Plan Mr. Loera is an 81 year old male who we've been asked to see for concerns over his agitation. Patient has a history of dementia. Problem: Agitation: His behaviors are in line with agitation secondary to medical issues or those consistent with being away from his familiar routine. His dementia precludes him from being an active participant in his recovery from the insult. As such we should focus on returning him to his routine as much as possible in hopes of decreasing this agitation. When I went to see him he was sleeping. Getting back to a familiar sleep cycle should be a focus while his medical issues are being addressed as a first step. I recommend utilizing melatonin 6 mg po qhs as a sleep aid at this time rather than further utilizing the Haldol as a means to control the agitation. It's unclear the role of Lamictal for this patient and will need to be discussed with collateral why he' s been on this medication. Furthermore patient is not on a dementia med such as aricept which can be utilized but won't make a significant difference acutely.
[2016-12-30] MEDS: LaMICtal PO SCH (22:01)
[2016-12-31] MEDS: ALPHAGAN P 0.15% OU SCH ×5 (02:00→17:53)
[2016-12-31] MEDS: FLOMAX PO SCH ×2 (02:00→22:43)
[2016-12-31] MEDS: PAMELOR PO SCH ×3 (03:00→22:44)
[2016-12-31] MEDS: APRESOLINE PO SCH ×3 (05:50→22:47)
[2016-12-31] MEDS: ZOSYN/NS 4.5GM/100ML 4.5 GM/100 ML VIAL IV SCH (05:54)
[2016-12-31 08:55] LABS: Anion Gap 15 mmol/L; BUN/Creatinine Ratio 25.71; Blood Urea Nitrogen 18 mg/dL (9-20); Calcium 8.5 mg/dL (8.4-10.2); Carbon Dioxide 27 mmol/L (22-30); Chloride 98.2 mmol/L (98-107); Glucose 119 mg/dL (75-100); Potassium 3.8 mmol/L (3.6-5.0); Sodium 136 mmol/L (137-145)
[2016-12-31] MEDS: CYMBALTA PO SCH (09:36)
[2016-12-31] MEDS: HALDOL FEEDTUBE SCH ×2 (09:37→22:43)
[2016-12-31] MEDS: BABY ASPIRIN FEEDTUBE SCH (09:37)
[2016-12-31] MEDS: COLACE FEEDTUBE SCH (09:39)
[2016-12-31] MEDS: DUONEB 0.5 MG-3 MG/3 ML SOLN IH SCH ×3 (09:43→20:44)
[2016-12-31] MEDS: TRIPLE ANTIBIOTIC TP SCH (09:43)
[2016-12-31] MEDS: NORVASC FEEDTUBE SCH (09:49)
[2016-12-31] MEDS: LOPRESSOR PO SCH (09:58)
--- NOTE | 2016-12-31 11:59 | Progress Note ---
Assessment and Plan Assessment and plan: Toxic metabolic encephalopathy due to UTI and sepsis. Supportive care, neurochecks Sepsis secondary to UTI. Continue Levaquin 750 mg IV daily. Supportive care UTI. Levaquin IV. Patient came in with indwelling jacobson catheter from home. Leukocytosis due to sepsis, UTI. Coronary artery disease s/p CABG. This is stable, no chest pain or shortness of breath. On Aspirin, Lopressor Hypertensive urgency. Blood pressure improving. Hyperlipidemia Dementia. He is cared for at home by family members. Malnutrition, s/p PEG tube placement DVT prophylaxis with subcutaneous heparin Full CODE STATUS He is medically stable for discharge to SNF. Discussed case with case management. Discharge orders put in but he did not go cause family appealed discharge order. - Patient Problems (1) Encephalopathy Current Visit: Yes Status: Acute (2) Malnutrition Current Visit: Yes Status: Acute (3) Physical deconditioning Current Visit: Yes Status: Acute (4) Diabetes Current Visit: No Status: Acute Qualifiers: Diabetes mellitus type: due to underlying condition Diabetes mellitus complication status: with kidney complications Diabetes mellitus complication detail: D Diabetic retinopathy severity: D Proliferative retinopathy type: P Diabetes mellitus macular edema: D Diabetes mellitus institutional nutrition consultant insulin use : D Laterality: L Chronic kidney disease stage: C History Interval history: Patient admitted with altered mental status found to have sepsis, UTI confused, agitated, No new events overnight Was discharged but did not go because family appealed the discharge order Hospitalist Physical - Physical exam Narrative exam: Gen: not in acute distress,agitated on and off HEENT: normocephalic,atraumatic Neck :supple, no JVD Lungs: clear to auscultation bilaterally, no crackles no wheezes Heart: S1 and S2 regular, no murmurs no gallops, Abdomen: soft non-tender, non-distended, normal bowel sounds, PEG tube Extremities: no edema, clubbing or cyanosis, Neuro: Awake, agitated on and off - Constitutional Vitals: Temp Pulse Resp BP Pulse Ox 98.8 F 83 18 107/59 99 12/31/16 08:00 12/31/16 10:02 12/31/16 10:02 12/31/16 09:58 12/31/16 09:46 General appearance: Present: no acute distress, cachectic Results - Labs CBC & Chem 7: 01/02/17 04:37 01/02/17 04:37 Labs: Laboratory Last Values WBC 12.9 K/mm3 (4.5-11.0) H 12/29/16 06:12 RBC 3.30 M/mm3 (3.65-5.03) L 12/29/16 06:12 Hgb 9.4 gm/dl (11.8-15.2) L 12/29/16 06:12 Hct 28.0 % (35.5-45.6) L 12/29/16 06:12 MCV 85 fl (84-94) 12/29/16 06:12 MCH 29 pg (28-32) 12/29/16 06:12 MCHC 34 % (32-34) 12/29/16 06:12 RDW 17.0 % (13.2-15.2) H 12/29/16 06:12 Plt Count 216 K/mm3 (140-440) 12/29/16 06:12 Lymph % (Auto) 19.0 % (13.4-35.0) 12/16/16 07:20 [place] % (Auto) 9.4 % (0.0-7.3) H 12/16/16 07:20 Eos % (Auto) 6.1 % (0.0-4.3) H 12/16/16 07:20 Baso % (Auto) 0.6 % (0.0-1.8) 12/16/16 07:20 Lymph # 1.9 K/mm3 (1.2-5.4) 12/16/16 07:20 [place] # 0.9 K/mm3 (0.0-0.8) H 12/16/16 07:20 Eos # 0.6 K/mm3 (0.0-0.4) H 12/16/16 07:20 Baso # 0.1 K/mm3 (0.0-0.1) 12/16/16 07:20 Seg Neutrophils % 64.9 % (40.0-70.0) 12/16/16 07:20 Seg Neutrophils # 6.3 K/mm3 (1.8-7.7) 12/16/16 07:20 PT 13.2 Sec. (12.2-14.9) 12/26/16 04:25 INR 1.01 (0.87-1.13) 12/26/16 04:25 APTT 31.7 Sec. (24.2-36.6) 12/26/16 04:25 Sodium 136 mmol/L (137-145) L 12/31/16 08:13 Potassium 3.8 mmol/L (3.6-5.0) 12/31/16 08:13 Chloride 98.2 mmol/L (98-107) 12/31/16 08:13 Carbon Dioxide 27 mmol/L (22-30) 12/31/16 08:13 Anion Gap 15 mmol/L 12/31/16 08:13 BUN 18 mg/dL (9-20) 12/31/16 08:13 Creatinine 0.7 mg/dL (0.8-1.5) L 12/31/16 08:13 Estimated GFR > 60 ml/min 12/31/16 08:13 BUN/Creatinine Ratio 25.71 % 12/31/16 08:13 Glucose 119 mg/dL (75-100) H 12/31/16 08:13 POC Glucose 114 (70-105) H 12/31/16 06:42 Lactic Acid 2.1 mmol/L (0.7-2.0) H* 12/16/16 21:48 Calcium 8.5 mg/dL (8.4-10.2) 12/31/16 08:13 Magnesium 1.6 mg/dL (1.7-2.3) L 12/25/16 17:21 Iron 45 ug/dL (49-181) L 12/16/16 11:14 TIBC 333.20 mcg/dL (250-450) 12/16/16 11:14 % Saturation 13.51 % 12/16/16 11:14 Transferrin 238 mg/dl (180-329) 12/16/16 11:14 Total Bilirubin 0.6 mg/dL (0.1-1.2) 12/27/16 05:46 AST 132 units/L (5-40) H 12/27/16 05:46 ALT 43 units/L (7-56) 12/27/16 05:46 Alkaline Phosphatase 96 units/L (35-129) 12/27/16 05:46 Total Creatine Kinase 82 units/L (55-170) 12/17/16 05:35 CK-MB (CK-2) 2.7 ng/mL (0.0-4.0) 12/17/16 05:35 CK-MB (CK-2) Rel Index 3.2 (0-4) 12/17/16 05:35 Total Protein 6.1 g/dL (6.3-8.2) L 12/27/16 05:46 Albumin 2.8 g/dL (3.9-5) L 12/27/16 05:46 Albumin/Globulin Ratio 0.8 % 12/27/16 05:46 Urine Color Yellow (Yellow) 12/20/16 Unknown Urine Turbidity Cloudy (Clear) 12/20/16 Unknown Urine pH 5.0 (5.0-7.0) 12/20/16 Unknown Ur Specific [place] 1.012 (1.003-1.030) 12/20/16 Unknown Urine Protein 30 mg/dl mg/dL (Negative) 12/20/16 Unknown Urine Glucose (UA) Neg mg/dL (Negative) 12/20/16 Unknown Urine Ketones Neg mg/dL (Negative) 12/20/16 Unknown Urine Blood Mod (Negative) 12/20/16 Unknown Urine Nitrite Neg (Negative) 12/20/16 Unknown Ur Reducing Substances Not Reportable 12/20/16 Unknown Urine Bilirubin Neg (Negative) 12/20/16 Unknown Urine Ictotest Not Reportable 12/20/16 Unknown Urine Urobilinogen < 2.0 mg/dL (<2.0) 12/20/16 Unknown Ur Leukocyte Esterase Lg (Negative) 12/20/16 Unknown Urine WBC (Auto) 181.0 /HPF (0.0-6.0) H 12/20/16 Unknown Urine RBC (Auto) 44.0 /HPF (0.0-6.0) 12/20/16 Unknown U Epithel Cells (Auto) 1.0 /HPF (0-13.0) 12/20/16 Unknown Urine Bacteria (Auto) 1+ /HPF (Negative) 12/20/16 Unknown Urine WBC Clumps 2+ /HPF 12/20/16 Unknown Amorphous Crystals Few 12/16/16 08:28 Hyaline Casts 2 /LPF 12/20/16 Unknown Urine Mucus 1+ /HPF 12/20/16 Unknown Urine Yeast (Budding) 3+ /HPF 12/20/16 Unknown Urine Sperm Few /HPF (EXTERMINATOR HELPER) 12/20/16 Unknown Blood Type B POSITIVE 12/16/16 07:20 Antibody Screen Negative 12/16/16 07:20
--- NOTE | 2016-12-31 17:49 | Progress Note ---
Subjective - Reason for Consult Reason for consult: psych consult - Chief Complaint Chief complaint: Mr. Loera is an 81 year old male who we've been asked to see for concerns over his agitation. Patient was again sleeping when I went to see him today. As before, when awaken he was confused and mumbled a few words when asked specific questions. When discussed with the nurse working with him, she noted an uneventful night and no agitation this morning and not in restraints. Mental Status Exam - Vital signs Last Vital Signs Temp 98.1 F 12/31/16 16:00 Pulse 63 12/31/16 15:26 Resp 18 12/31/16 15:26 BP 114/56 12/31/16 14:26 Pulse Ox 100 12/31/16 10:00 - Exam Orientation: person Affect: flat Mood: other (no answer) Thought Process: Disoriented Perceptions: none Speech: minimal response Concentration: unable to pay attention Motor activity: lethargic Level of consciousness: confused Memory: Recent Impaired, Remote Impaired Interaction: cooperative Assessment and Plan Mr. Loera is an 81 year old male who we've been asked to see for concerns over his agitation. Patient has a history of dementia. Problem: Agitation: His behaviors are in line with agitation secondary to medical issues or those consistent with being away from his familiar routine. His dementia precludes him from being an active participant in his recovery from the insult. As such we should focus on returning him to his routine as much as possible in hopes of decreasing this agitation. When I went to see him he was sleeping. Getting back to a familiar sleep cycle should be a focus while his medical issues are being addressed as a first step. Patient seemed to tolerate the remeron used for helping with sleep regulation- albeit he is sleeping again when seen this afternoon. His physical condition likely plays a significant role in his lack of energy though. Will follow.
[2016-12-31] MEDS: DESYREL PO SCH (22:44)
[2016-12-31] MEDS: LaMICtal PO SCH (22:44)
[2016-12-31] MEDS: NACL 0.9% 1000 ML 1,000 ML IV SCH (23:01)
[2017-01-01] MEDS: ALPHAGAN P 0.15% OU SCH ×3 (02:45→17:38)
[2017-01-01] MEDS: APRESOLINE PO SCH ×3 (07:05→22:45)
[2017-01-01] MEDS: DUONEB 0.5 MG-3 MG/3 ML SOLN IH SCH ×3 (07:42→19:56)
--- NOTE | 2017-01-01 10:00 | Progress Note ---
Assessment and Plan Assessment and plan: Toxic metabolic encephalopathy due to UTI and sepsis. Supportive care, neurochecks Sepsis secondary to UTI. Completed levaquin UTI. Completed Levaquin IV. Patient came in with indwelling jacobson catheter from home. Leukocytosis due to sepsis, UTI. Coronary artery disease s/p CABG. This is stable, no chest pain or shortness of breath. On Aspirin, Lopressor Hypertensive urgency. Blood pressure improving. Hyperlipidemia Dementia. He was cared for at home by family members. Malnutrition, s/p PEG tube placement DVT prophylaxis with subcutaneous heparin Full CODE STATUS He is medically stable for discharge. Discussed case with case management. Discharge orders put in but he did not go because family appealed discharge order. Discussed with daughter on the phone. She is also considering hospice. - Patient Problems (1) Encephalopathy Current Visit: Yes Status: Acute (2) Malnutrition Current Visit: Yes Status: Acute (3) Physical deconditioning Current Visit: Yes Status: Acute (4) Diabetes Current Visit: No Status: Acute Qualifiers: Diabetes mellitus type: due to underlying condition Diabetes mellitus complication status: with kidney complications Diabetes mellitus complication detail: D Diabetic retinopathy severity: D Proliferative retinopathy type: P Diabetes mellitus macular edema: D Diabetes mellitus intermediate frame tender insulin use : D Laterality: L Chronic kidney disease stage: C History Interval history: Patient admitted with altered mental status found to have sepsis, UTI confused, agitated, No new events overnight Was discharged but did not go because family appealed the discharge order Hospitalist Physical - Physical exam Narrative exam: Gen: not in acute distress,agitated on and off HEENT: normocephalic,atraumatic Neck :supple, no JVD Lungs: clear to auscultation bilaterally, no crackles no wheezes Heart: S1 and S2 regular, no murmurs no gallops, Abdomen: soft non-tender, non-distended, normal bowel sounds, PEG tube Extremities: no edema, clubbing or cyanosis, Neuro: Awake, agitated on and off - Constitutional Vitals: Temp Pulse Resp BP Pulse Ox 98.1 F 72 20 89/44 100 12/31/16 22:00 01/01/17 08:00 01/01/17 08:00 01/01/17 07:05 01/01/17 07:43 General appearance: Present: no acute distress, cachectic Results - Labs CBC & Chem 7: 01/02/17 04:37 01/02/17 04:37 Labs: Laboratory Last Values WBC 12.9 K/mm3 (4.5-11.0) H 12/29/16 06:12 RBC 3.30 M/mm3 (3.65-5.03) L 12/29/16 06:12 Hgb 9.4 gm/dl (11.8-15.2) L 12/29/16 06:12 Hct 28.0 % (35.5-45.6) L 12/29/16 06:12 MCV 85 fl (84-94) 12/29/16 06:12 MCH 29 pg (28-32) 12/29/16 06:12 MCHC 34 % (32-34) 12/29/16 06:12 RDW 17.0 % (13.2-15.2) H 12/29/16 06:12 Plt Count 216 K/mm3 (140-440) 12/29/16 06:12 Lymph % (Auto) 19.0 % (13.4-35.0) 12/16/16 07:20 [place] % (Auto) 9.4 % (0.0-7.3) H 12/16/16 07:20 Eos % (Auto) 6.1 % (0.0-4.3) H 12/16/16 07:20 Baso % (Auto) 0.6 % (0.0-1.8) 12/16/16 07:20 Lymph # 1.9 K/mm3 (1.2-5.4) 12/16/16 07:20 [place] # 0.9 K/mm3 (0.0-0.8) H 12/16/16 07:20 Eos # 0.6 K/mm3 (0.0-0.4) H 12/16/16 07:20 Baso # 0.1 K/mm3 (0.0-0.1) 12/16/16 07:20 Seg Neutrophils % 64.9 % (40.0-70.0) 12/16/16 07:20 Seg Neutrophils # 6.3 K/mm3 (1.8-7.7) 12/16/16 07:20 PT 13.2 Sec. (12.2-14.9) 12/26/16 04:25 INR 1.01 (0.87-1.13) 12/26/16 04:25 APTT 31.7 Sec. (24.2-36.6) 12/26/16 04:25 Sodium 136 mmol/L (137-145) L 12/31/16 08:13 Potassium 3.8 mmol/L (3.6-5.0) 12/31/16 08:13 Chloride 98.2 mmol/L (98-107) 12/31/16 08:13 Carbon Dioxide 27 mmol/L (22-30) 12/31/16 08:13 Anion Gap 15 mmol/L 12/31/16 08:13 BUN 18 mg/dL (9-20) 12/31/16 08:13 Creatinine 0.7 mg/dL (0.8-1.5) L 12/31/16 08:13 Estimated GFR > 60 ml/min 12/31/16 08:13 BUN/Creatinine Ratio 25.71 % 12/31/16 08:13 Glucose 119 mg/dL (75-100) H 12/31/16 08:13 POC Glucose 90 (70-105) 01/01/17 07:56 Lactic Acid 2.1 mmol/L (0.7-2.0) H* 12/16/16 21:48 Calcium 8.5 mg/dL (8.4-10.2) 12/31/16 08:13 Magnesium 1.6 mg/dL (1.7-2.3) L 12/25/16 17:21 Iron 45 ug/dL (49-181) L 12/16/16 11:14 TIBC 333.20 mcg/dL (250-450) 12/16/16 11:14 % Saturation 13.51 % 12/16/16 11:14 Transferrin 238 mg/dl (180-329) 12/16/16 11:14 Total Bilirubin 0.6 mg/dL (0.1-1.2) 12/27/16 05:46 AST 132 units/L (5-40) H 12/27/16 05:46 ALT 43 units/L (7-56) 12/27/16 05:46 Alkaline Phosphatase 96 units/L (35-129) 12/27/16 05:46 Total Creatine Kinase 82 units/L (55-170) 12/17/16 05:35 CK-MB (CK-2) 2.7 ng/mL (0.0-4.0) 12/17/16 05:35 CK-MB (CK-2) Rel Index 3.2 (0-4) 12/17/16 05:35 Total Protein 6.1 g/dL (6.3-8.2) L 12/27/16 05:46 Albumin 2.8 g/dL (3.9-5) L 12/27/16 05:46 Albumin/Globulin Ratio 0.8 % 12/27/16 05:46 Urine Color Yellow (Yellow) 12/20/16 Unknown Urine Turbidity Cloudy (Clear) 12/20/16 Unknown Urine pH 5.0 (5.0-7.0) 12/20/16 Unknown Ur Specific [place] 1.012 (1.003-1.030) 12/20/16 Unknown Urine Protein 30 mg/dl mg/dL (Negative) 12/20/16 Unknown Urine Glucose (UA) Neg mg/dL (Negative) 12/20/16 Unknown Urine Ketones Neg mg/dL (Negative) 12/20/16 Unknown Urine Blood Mod (Negative) 12/20/16 Unknown Urine Nitrite Neg (Negative) 12/20/16 Unknown Ur Reducing Substances Not Reportable 12/20/16 Unknown Urine Bilirubin Neg (Negative) 12/20/16 Unknown Urine Ictotest Not Reportable 12/20/16 Unknown Urine Urobilinogen < 2.0 mg/dL (<2.0) 12/20/16 Unknown Ur Leukocyte Esterase Lg (Negative) 12/20/16 Unknown Urine WBC (Auto) 181.0 /HPF (0.0-6.0) H 12/20/16 Unknown Urine RBC (Auto) 44.0 /HPF (0.0-6.0) 12/20/16 Unknown U Epithel Cells (Auto) 1.0 /HPF (0-13.0) 12/20/16 Unknown Urine Bacteria (Auto) 1+ /HPF (Negative) 12/20/16 Unknown Urine WBC Clumps 2+ /HPF 12/20/16 Unknown Amorphous Crystals Few 12/16/16 08:28 Hyaline Casts 2 /LPF 12/20/16 Unknown Urine Mucus 1+ /HPF 12/20/16 Unknown Urine Yeast (Budding) 3+ /HPF 12/20/16 Unknown Urine Sperm Few /HPF (ELECTRONIC FUNDS TRANSFER COORDINATOR) 12/20/16 Unknown Blood Type B POSITIVE 12/16/16 07:20 Antibody Screen Negative 12/16/16 07:20
[2017-01-01] MEDS: LOPRESSOR PO SCH (10:43)
[2017-01-01] MEDS: NORVASC FEEDTUBE SCH (10:45)
[2017-01-01] MEDS: TRIPLE ANTIBIOTIC TP SCH (10:56)
[2017-01-01] MEDS: CYMBALTA PO SCH (10:56)
[2017-01-01] MEDS: HALDOL FEEDTUBE SCH ×2 (10:57→21:56)
[2017-01-01] MEDS: COLACE FEEDTUBE SCH (10:57)
[2017-01-01] MEDS: BABY ASPIRIN FEEDTUBE SCH (10:58)
[2017-01-01] MEDS: NACL 0.9% 1000 ML 1,000 ML IV SCH (12:54)
--- NOTE | 2017-01-01 19:40 | Progress Note ---
Subjective - Reason for Consult Reason for consult: psych management - Chief Complaint Chief complaint: Mr. Loera is an 81 year old male who we've been asked to see for concerns over his agitation. Patient was awake when seen but still mumbles when trying to initiate conversation with him. He did say he was fine but then trailed off with further conversation. No gestures of SI/HI/AH/VH. Per staff patient hasn' t been in restraints and not agitated. Still has poor sleep/wake cycle. Mental Status Exam - Vital signs Last Vital Signs Temp 98.1 F 01/01/17 19:26 Pulse 72 01/01/17 19:26 Resp 22 01/01/17 19:26 BP 131/59 01/01/17 19:26 Pulse Ox 99 01/01/17 19:26 - Exam Orientation: person Affect: flat Mood: other (no answer) Thought Process: Disoriented Perceptions: none Speech: minimal response Concentration: distractible Motor activity: lethargic Level of consciousness: confused Memory: Recent Impaired, Remote Impaired Interaction: cooperative Assessment and Plan Mr. Loera is an 81 year old male who we've been asked to see for concerns over his agitation. Patient has a history of dementia. Problem: Agitation: His behaviors are in line with agitation secondary to medical issues or those consistent with being away from his familiar routine. His dementia precludes him from being an active participant in his recovery from the insult. As such we should focus on returning him to his routine as much as possible in hopes of decreasing this agitation. When I went to see him he still has poor sleep/wake cycle. Getting back to a familiar sleep cycle should be a focus while his medical issues are being addressed as a first step. Patient seemed to tolerate the remeron used for helping with sleep regulation- albeit he is sleeping again when seen this afternoon. His physical condition likely plays a significant role in his lack of energy though. Will follow.
[2017-01-01] MEDS: PAMELOR PO SCH (21:55)
[2017-01-01] MEDS: FLOMAX PO SCH (21:56)
[2017-01-01] MEDS: DESYREL PO SCH (21:57)
[2017-01-01] MEDS: LaMICtal PO SCH (21:57)
[2017-01-02] MEDS: ALPHAGAN P 0.15% OU SCH ×3 (02:03→18:49)
[2017-01-02 05:10] LABS: Hematocrit 27.6 % (35.5-45.6); Hemoglobin 9.2 gm/dl (11.8-15.2); Mean Corpuscular HGB Conc 34 % (32-34); Mean Corpuscular Hemoglobin 28 pg (28-32); Mean Corpuscular Volume 84 fl (84-94); Platelet Count 255 K/mm3 (140-440); Red Blood Count 3.27 M/mm3 (3.65-5.03); Red Cell Distribution Width 16.5 % (13.2-15.2); White Blood Count 9.8 K/mm3 (4.5-11.0)
[2017-01-02 05:22] LABS: Anion Gap 16 mmol/L; Blood Urea Nitrogen 21 mg/dL (9-20); Calcium 8.4 mg/dL (8.4-10.2); Carbon Dioxide 25 mmol/L (22-30); Chloride 101.6 mmol/L (98-107); Glucose 109 mg/dL (75-100); Potassium 4.2 mmol/L (3.6-5.0); Sodium 138 mmol/L (137-145)
[2017-01-02] MEDS: APRESOLINE PO SCH ×3 (05:55→22:02)
[2017-01-02] MEDS: DUONEB 0.5 MG-3 MG/3 ML SOLN IH SCH ×3 (08:35→20:07)
[2017-01-02] MEDS: NACL 0.9% 1000 ML 1,000 ML IV SCH (09:40)
[2017-01-02] MEDS: TRIPLE ANTIBIOTIC TP SCH (10:00)
[2017-01-02] MEDS: BABY ASPIRIN FEEDTUBE SCH (10:25)
[2017-01-02] MEDS: COLACE FEEDTUBE SCH (10:26)
[2017-01-02] MEDS: NORVASC FEEDTUBE SCH (10:28)
--- NOTE | 2017-01-02 10:33 | Progress Note ---
Assessment and Plan Assessment and plan: Toxic metabolic encephalopathy due to UTI and sepsis. Supportive care, neurochecks Sepsis secondary to UTI. Completed levaquin UTI. Completed Levaquin IV. Patient came in with indwelling jacobson catheter from home. Leukocytosis due to sepsis, UTI. Coronary artery disease s/p CABG. This is stable, no chest pain or shortness of breath. On Aspirin, Lopressor Hypertensive urgency. Blood pressure improving. Hyperlipidemia Dementia. He was cared for at home by family members. Malnutrition, s/p PEG tube placement DVT prophylaxis with subcutaneous heparin Full CODE STATUS He is medically stable for discharge. Discussed case with case management. Discharge orders put in but he did not go because family appealed discharge order. Discussed with daughter on the phone. - Patient Problems (1) Encephalopathy Current Visit: Yes Status: Acute (2) Malnutrition Current Visit: Yes Status: Acute (3) Physical deconditioning Current Visit: Yes Status: Acute (4) Diabetes Current Visit: No Status: Acute Qualifiers: Diabetes mellitus type: due to underlying condition Diabetes mellitus complication status: with kidney complications Diabetes mellitus complication detail: D Diabetic retinopathy severity: D Proliferative retinopathy type: P Diabetes mellitus macular edema: D Diabetes mellitus group home insulin use : D Laterality: L Chronic kidney disease stage: C History Interval history: Patient admitted with altered mental status found to have sepsis, UTI confused, agitated, No new events overnight Was discharged but did not go because family appealed the discharge order Hospitalist Physical - Physical exam Narrative exam: Gen: not in acute distress,agitated on and off HEENT: normocephalic,atraumatic Neck :supple, no JVD Lungs: clear to auscultation bilaterally, no crackles no wheezes Heart: S1 and S2 regular, no murmurs no gallops, Abdomen: soft non-tender, non-distended, normal bowel sounds, PEG tube Extremities: no edema, clubbing or cyanosis, Neuro: Awake, agitated on and off - Constitutional Vitals: Temp Pulse Resp BP Pulse Ox 98.1 F 71 25 H 139/71 100 01/01/17 19:26 01/02/17 08:46 01/02/17 08:46 01/01/17 22:45 01/02/17 08:39 General appearance: Present: no acute distress, cachectic Results - Labs CBC & Chem 7: 01/02/17 04:37 01/02/17 04:37 Labs: Laboratory Last Values WBC 9.8 K/mm3 (4.5-11.0) 01/02/17 04:37 RBC 3.27 M/mm3 (3.65-5.03) L 01/02/17 04:37 Hgb 9.2 gm/dl (11.8-15.2) L 01/02/17 04:37 Hct 27.6 % (35.5-45.6) L 01/02/17 04:37 MCV 84 fl (84-94) 01/02/17 04:37 MCH 28 pg (28-32) 01/02/17 04:37 MCHC 34 % (32-34) 01/02/17 04:37 RDW 16.5 % (13.2-15.2) H 01/02/17 04:37 Plt Count 255 K/mm3 (140-440) 01/02/17 04:37 Lymph % (Auto) 19.0 % (13.4-35.0) 12/16/16 07:20 [place] % (Auto) 9.4 % (0.0-7.3) H 12/16/16 07:20 Eos % (Auto) 6.1 % (0.0-4.3) H 12/16/16 07:20 Baso % (Auto) 0.6 % (0.0-1.8) 12/16/16 07:20 Lymph # 1.9 K/mm3 (1.2-5.4) 12/16/16 07:20 [place] # 0.9 K/mm3 (0.0-0.8) H 12/16/16 07:20 Eos # 0.6 K/mm3 (0.0-0.4) H 12/16/16 07:20 Baso # 0.1 K/mm3 (0.0-0.1) 12/16/16 07:20 Seg Neutrophils % 64.9 % (40.0-70.0) 12/16/16 07:20 Seg Neutrophils # 6.3 K/mm3 (1.8-7.7) 12/16/16 07:20 PT 13.2 Sec. (12.2-14.9) 12/26/16 04:25 INR 1.01 (0.87-1.13) 12/26/16 04:25 APTT 31.7 Sec. (24.2-36.6) 12/26/16 04:25 Sodium 138 mmol/L (137-145) 01/02/17 04:37 Potassium 4.2 mmol/L (3.6-5.0) 01/02/17 04:37 Chloride 101.6 mmol/L (98-107) 01/02/17 04:37 Carbon Dioxide 25 mmol/L (22-30) 01/02/17 04:37 Anion Gap 16 mmol/L 01/02/17 04:37 BUN 21 mg/dL (9-20) H 01/02/17 04:37 Creatinine 0.6 mg/dL (0.8-1.5) L 01/02/17 04:37 Estimated GFR > 60 ml/min 01/02/17 04:37 BUN/Creatinine Ratio 35.00 % 01/02/17 04:37 Glucose 109 mg/dL (75-100) H 01/02/17 04:37 POC Glucose 122 (70-105) H 01/01/17 17:32 Lactic Acid 2.1 mmol/L (0.7-2.0) H* 12/16/16 21:48 Calcium 8.4 mg/dL (8.4-10.2) 01/02/17 04:37 Magnesium 1.6 mg/dL (1.7-2.3) L 12/25/16 17:21 Iron 45 ug/dL (49-181) L 12/16/16 11:14 TIBC 333.20 mcg/dL (250-450) 12/16/16 11:14 % Saturation 13.51 % 12/16/16 11:14 Transferrin 238 mg/dl (180-329) 12/16/16 11:14 Total Bilirubin 0.6 mg/dL (0.1-1.2) 12/27/16 05:46 AST 132 units/L (5-40) H 12/27/16 05:46 ALT 43 units/L (7-56) 12/27/16 05:46 Alkaline Phosphatase 96 units/L (35-129) 12/27/16 05:46 Total Creatine Kinase 82 units/L (55-170) 12/17/16 05:35 CK-MB (CK-2) 2.7 ng/mL (0.0-4.0) 12/17/16 05:35 CK-MB (CK-2) Rel Index 3.2 (0-4) 12/17/16 05:35 Total Protein 6.1 g/dL (6.3-8.2) L 12/27/16 05:46 Albumin 2.8 g/dL (3.9-5) L 12/27/16 05:46 Albumin/Globulin Ratio 0.8 % 12/27/16 05:46 Urine Color Yellow (Yellow) 12/20/16 Unknown Urine Turbidity Cloudy (Clear) 12/20/16 Unknown Urine pH 5.0 (5.0-7.0) 12/20/16 Unknown Ur Specific [place] 1.012 (1.003-1.030) 12/20/16 Unknown Urine Protein 30 mg/dl mg/dL (Negative) 12/20/16 Unknown Urine Glucose (UA) Neg mg/dL (Negative) 12/20/16 Unknown Urine Ketones Neg mg/dL (Negative) 12/20/16 Unknown Urine Blood Mod (Negative) 12/20/16 Unknown Urine Nitrite Neg (Negative) 12/20/16 Unknown Ur Reducing Substances Not Reportable 12/20/16 Unknown Urine Bilirubin Neg (Negative) 12/20/16 Unknown Urine Ictotest Not Reportable 12/20/16 Unknown Urine Urobilinogen < 2.0 mg/dL (<2.0) 12/20/16 Unknown Ur Leukocyte Esterase Lg (Negative) 12/20/16 Unknown Urine WBC (Auto) 181.0 /HPF (0.0-6.0) H 12/20/16 Unknown Urine RBC (Auto) 44.0 /HPF (0.0-6.0) 12/20/16 Unknown U Epithel Cells (Auto) 1.0 /HPF (0-13.0) 12/20/16 Unknown Urine Bacteria (Auto) 1+ /HPF (Negative) 12/20/16 Unknown Urine WBC Clumps 2+ /HPF 12/20/16 Unknown Amorphous Crystals Few 12/16/16 08:28 Hyaline Casts 2 /LPF 12/20/16 Unknown Urine Mucus 1+ /HPF 12/20/16 Unknown Urine Yeast (Budding) 3+ /HPF 12/20/16 Unknown Urine Sperm Few /HPF (KAI [id number]) 03/21/17 Unknown Blood Type B POSITIVE 12/16/16 07:20 Antibody Screen Negative 12/16/16 07:20
[2017-01-02] MEDS: HALDOL FEEDTUBE SCH ×2 (12:18→22:01)
--- NOTE | 2017-01-02 13:55 | Progress Note ---
Subjective - Reason for Consult Consult date: 01/02/17 Reason for consult: Psychaitry Follow-up - Chief Complaint Chief complaint: Mr. Loera is an 81 year old male who we've been asked to see for concerns over his agitation. Patient was awake upon arrival to his room. He nods to his name and tried to talk, but his words were mumbled. Patient shook my hand before I left his room. No gestures of SI/HI/AH/VH at this time. Per staff patient hasn't been in restraints, agitated, or needed prn medication (Ativan). Mental Status Exam - Vital signs Last Vital Signs Temp 98.1 F 01/01/17 19:26 Pulse 72 01/02/17 10:28 Resp 25 H 01/02/17 08:46 BP 144/62 01/02/17 10:28 Pulse Ox 100 01/02/17 08:39 - Exam Narrative exam: Patient nods to his name. Per his assigned RN no combative or aggression behavior on her shift. Unable to complete MSE. Assessment and Plan Impression: Mr. Loera is an 81 year old male who we've been asked to see for concerns over his agitation. Patient has a history of dementia. Patient has not needed Ativan 1 mg IV PRN for agitation since 12/29/2016. Patient is restraint free at this time. Recommendation/Plan: Agitation: His behaviors are in line with agitation secondary to medical issues or those consistent with being away from his familiar routine. His dementia precludes him from being an active participant in his recovery from the insult. Continue to focus on returning him to his routine as much as possible in hopes of decreasing the agitation. Patient seemed to tolerate the Trazodone used for helping with sleep regulation at night. His physical condition likely plays a significant role in his lack of energy. Patient is on a antipsychotic (Haldol) that can put him at risk for Q-T interval prolongation. Please monitor patient closely. Will follow-up daily.
[2017-01-02] MEDS: CYMBALTA PO SCH (18:13)
[2017-01-02] MEDS: LOPRESSOR PO SCH (18:14)
[2017-01-02] MEDS: FLOMAX PO SCH (22:01)
[2017-01-02] MEDS: DESYREL PO SCH (22:01)
[2017-01-02] MEDS: LaMICtal PO SCH (22:01)
[2017-01-02] MEDS: LOVENOX SUB-Q SCH (22:02)
[2017-01-02] MEDS: PAMELOR PO SCH (22:02)
[2017-01-03] MEDS: ALPHAGAN P 0.15% OU SCH ×2 (01:34→09:33)
[2017-01-03] MEDS: APRESOLINE PO SCH ×3 (06:16→22:06)
[2017-01-03] MEDS: DUONEB 0.5 MG-3 MG/3 ML SOLN IH SCH ×3 (08:49→21:00)
--- NOTE | 2017-01-03 09:04 | Discharge Summary ---
Providers - Providers Date of Admission: 12/16/16 09:15 Date of discharge: 01/09/17 Attending physician: JAKI CLIFTON MD 12/19/16 12:33 Speech Therapy Evaluation and Treat [CONS] Routine Reason For Exam: failed bedside swallow eval 12/21/16 11:03 Consult to Physician [CONS] Routine Consulting Provider: LAURA DAMON Reason For Exam: BPH, jacobson exchange Place consult to:: urol Notified:: office Was contact made?: Yes If yes, spoke with:: foreign Time called:: 11:10 Comment:: spoke w/ 12/23/16 11:15 Consult to Dietitian/Nutrition [CONS] Routine Physician Instructions: Reason For Exam: Reason for Consult: Write/Manage Tube Feeding 12/24/16 14:21 Consult to Physician [CONS] Routine Consulting Provider: SEBASTIEN ZHENG Reason For Exam: peg placement Place consult to:: Dr. Zheng Notified:: Georgette POP Phone number called:: Was contact made?: Yes If yes, spoke with:: Jazmyne service Time called:: 14:35 12/24/16 14:23 Speech Therapy Evaluation and Treat [CONS] Routine Reason For Exam: re-evaluate swallowing 12/27/16 18:12 Consult to Wound/ET Nurse [CONS] Routine Reason For Exam: wound eval 01/02/17 18:12 Physical Therapy Evaluation and Treat [CONS] Stat Comment: Reason For Exam: PT EVAL NEEDED FOR DISPOSITION TO HOME VS SNF Primary care physician: HALFWAY HOUSE COUNSELOR Hospitalization Reason for admission: dementia, metabolic encephalopathty, sepsis Condition: Fair Disposition: DC/[place] HOME UNDER HOME HEALTH Time spent for discharge: 31 minutes - Discharge Diagnoses (1) Altered mental status Status: Acute Qualifiers: Altered mental status type: disorientation Coma depth: C Coma timing: C Qualified Code(s): R41.0 - Disorientation, unspecified (2) Encephalopathy Status: Acute (3) Physical deconditioning Status: Acute (4) Pyelonephritis Status: Acute (5) Volume depletion Status: Acute (6) Dementia Status: Chronic Qualifiers: Dementia type: unspecified type Alzheimer's disease onset: A Dementia behavioral disturbance: without behavioral disturbance Qualified Code(s): F03.90 - Unspecified dementia without behavioral disturbance Core Measure Documentation - Palliative Care Palliative Care/ Comfort Measures: Not Applicable - Core Measures Any of the following diagnoses?: none Exam - Physical Exam Narrative exam: Not in cardiopulmonary distress. The patient appeared well nourished and normally developed. Vital signs as documented. Head exam is unremarkable. No scleral icterus . Neck is without jugular venous distension, thyromegaly, or carotid bruits. Lungs are clear to auscultation. Cardiac exam reveals regular rate and Rhythm. First and second heart sounds normal. No murmurs, rubs or gallops. Abdominal exam reveals normal bowel sounds, no masses, no organomegaly and no aortic enlargement. Extremities are nonedematous and both femoral and pedal pulses are normal. 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 - Constitutional Vitals: Temp Pulse Resp BP Pulse Ox 97.6 F 80 18 147/56 100 01/02/17 22:00 01/03/17 08:49 01/03/17 08:49 01/03/17 06:16 01/03/17 08:51 Plan Activity: advance as tolerated Weight Bearing Status: Weight Bear as Tolerated Diet: low cholesterol, low salt, other (Tube feeding diabetic diet 60ml/hr) Follow up with: MEGAN WILDER MD [Referring] - 7 Days PRIMARY CAREMD [Primary Care Provider] - 3-5 Days Prescriptions: Haloperidol 0.5 mg PO BID #30 tablet hydrALAZINE [Apresoline TAB] 50 mg PO Q8HR #30 tablet lamoTRIgine [LaMICtal] 100 mg PO HS #30 tablet LORazepam [Ativan] 0.5 mg PO DAILY #5 tablet Methylphenidate [Ritalin] 2.5 mg PO DAILY #30 tablet
[2017-01-03] MEDS: BABY ASPIRIN FEEDTUBE SCH (09:33)
[2017-01-03] MEDS: COLACE FEEDTUBE SCH (09:33)
[2017-01-03] MEDS: TRIPLE ANTIBIOTIC TP SCH (09:34)
[2017-01-03] MEDS: NACL 0.9% 1000 ML 1,000 ML IV SCH ×2 (09:35→23:27)
[2017-01-03] MEDS: NORVASC FEEDTUBE SCH (09:46)
[2017-01-03] MEDS: LOPRESSOR PO SCH (10:09)
[2017-01-03] MEDS: HALDOL FEEDTUBE SCH ×2 (10:30→22:05)
--- NOTE | 2017-01-03 10:54 | Progress Note ---
Subjective - Reason for Consult Consult date: 01/03/17 Reason for consult: Psychiatry Follow-up - Chief Complaint Chief complaint: Consulted for agitation Mr. Loera is an 81 year old male who we've been asked to see for concerns over his agitation. Patient was sleep on arrival, but woke up when I called out his name. He did speak and said hello. Per his assigned RN, patient has been appropriate with no agitation on her last 2 AM shifts. Also, over night no signs of agitation per nurse notes. No gestures of SI/HI/AH/VH. Patient is restraint free at this time. Mental Status Exam - Vital signs Last Vital Signs Temp 98.4 F 01/03/17 08:00 Pulse 80 01/03/17 09:46 Resp 18 01/03/17 09:07 BP 144/64 01/03/17 09:46 Pulse Ox 100 01/03/17 08:51 - Exam Narrative exam: Patient was sleep, but awakened to his name. Assessment and Plan Impression: Mr. Loera is an 81 year old male who we've been asked to see for concerns over his agitation. Patient has a history of dementia. Patient has not needed Ativan 1 mg IV PRN for agitation since 12/29/2016. Patient is restraint free at this time. Recommendation/Plan: Agitation: His behaviors are in line with agitation secondary to medical issues or those consistent with being away from his familiar routine. His dementia precludes him from being an active participant in his recovery from the insult. Continue to focus on returning him to his routine as much as possible in hopes of decreasing the agitation. Patient is on a antipsychotic (Haldol) that can put him at risk for Q-T interval prolongation. Please monitor patient closely. Will follow-up daily.
[2017-01-03] MEDS: CYMBALTA PO SCH (15:09)
[2017-01-03] MEDS: FLOMAX PO SCH (22:05)
[2017-01-03] MEDS: DESYREL PO SCH (22:05)
[2017-01-03] MEDS: LaMICtal PO SCH (22:05)
[2017-01-03] MEDS: PAMELOR PO SCH (22:06)
[2017-01-03] MEDS: LOVENOX SUB-Q SCH (22:06)
[2017-01-04] MEDS: ALPHAGAN P 0.15% OU SCH ×3 (01:40→18:39)
[2017-01-04] MEDS: APRESOLINE PO SCH ×3 (05:38→21:47)
--- NOTE | 2017-01-04 06:48 | Progress Note ---
Assessment and Plan Assessment and plan: Toxic metabolic encephalopathy due to UTI and sepsis. Supportive care, neurochecks Sepsis secondary to UTI. Completed levaquin UTI. Completed Levaquin IV. Patient came in with indwelling jacobson catheter from home. Leukocytosis due to sepsis, UTI. Coronary artery disease s/p CABG. This is stable, no chest pain or shortness of breath. On Aspirin, Lopressor Hypertensive urgency. Blood pressure improving. Hyperlipidemia Dementia. He was cared for at home by family members. Malnutrition, s/p PEG tube placement DVT prophylaxis with subcutaneous heparin Full CODE STATUS patient is medically stable for discharge. - Patient Problems (1) Altered mental status Current Visit: Yes Status: Acute Qualifiers: Altered mental status type: disorientation Coma depth: C Coma timing: C Qualified Code(s): R41.0 - Disorientation, unspecified (2) Encephalopathy Current Visit: Yes Status: Acute (3) Physical deconditioning Current Visit: Yes Status: Acute (4) Pyelonephritis Current Visit: Yes Status: Acute (5) Volume depletion Current Visit: Yes Status: Acute (6) Dementia Current Visit: Yes Status: Chronic Qualifiers: Dementia type: unspecified type Alzheimer's disease onset: A Dementia behavioral disturbance: without behavioral disturbance Qualified Code(s): F03.90 - Unspecified dementia without behavioral disturbance History Interval history: Patient was sleeping when I went to the room but he wake up and talked to me, no agitation. Hospitalist Physical - Physical exam Narrative exam: Not in cardiopulmonary distress. The patient appeared well nourished and normally developed. Vital signs as documented. Head exam is unremarkable. No scleral icterus . Neck is without jugular venous distension, thyromegaly, or carotid bruits. Lungs are clear to auscultation. Cardiac exam reveals regular rate and Rhythm. First and second heart sounds normal. No murmurs, rubs or gallops. Abdominal exam reveals normal bowel sounds, no masses, no organomegaly and no aortic enlargement. Extremities are nonedematous and both femoral and pedal pulses are normal. 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 - Constitutional Vitals: Temp Pulse Resp BP Pulse Ox 99.3 F 74 20 172/67 100 01/04/17 05:00 01/04/17 05:38 01/04/17 05:00 01/04/17 05:38 01/03/17 21:02 General appearance: Present: no acute distress, cachectic Results - Labs CBC & Chem 7: 01/02/17 04:37 01/02/17 04:37 Labs: Laboratory Last Values WBC 9.8 K/mm3 (4.5-11.0) 01/02/17 04:37 RBC 3.27 M/mm3 (3.65-5.03) L 01/02/17 04:37 Hgb 9.2 gm/dl (11.8-15.2) L 01/02/17 04:37 Hct 27.6 % (35.5-45.6) L 01/02/17 04:37 MCV 84 fl (84-94) 01/02/17 04:37 MCH 28 pg (28-32) 01/02/17 04:37 MCHC 34 % (32-34) 01/02/17 04:37 RDW 16.5 % (13.2-15.2) H 01/02/17 04:37 Plt Count 255 K/mm3 (140-440) 01/02/17 04:37 Lymph % (Auto) 19.0 % (13.4-35.0) 12/16/16 07:20 [place] % (Auto) 9.4 % (0.0-7.3) H 12/16/16 07:20 Eos % (Auto) 6.1 % (0.0-4.3) H 12/16/16 07:20 Baso % (Auto) 0.6 % (0.0-1.8) 12/16/16 07:20 Lymph # 1.9 K/mm3 (1.2-5.4) 12/16/16 07:20 [place] # 0.9 K/mm3 (0.0-0.8) H 12/16/16 07:20 Eos # 0.6 K/mm3 (0.0-0.4) H 12/16/16 07:20 Baso # 0.1 K/mm3 (0.0-0.1) 12/16/16 07:20 Seg Neutrophils % 64.9 % (40.0-70.0) 12/16/16 07:20 Seg Neutrophils # 6.3 K/mm3 (1.8-7.7) 12/16/16 07:20 PT 13.2 Sec. (12.2-14.9) 12/26/16 04:25 INR 1.01 (0.87-1.13) 12/26/16 04:25 APTT 31.7 Sec. (24.2-36.6) 12/26/16 04:25 Sodium 138 mmol/L (137-145) 01/02/17 04:37 Potassium 4.2 mmol/L (3.6-5.0) 01/02/17 04:37 Chloride 101.6 mmol/L (98-107) 01/02/17 04:37 Carbon Dioxide 25 mmol/L (22-30) 01/02/17 04:37 Anion Gap 16 mmol/L 01/02/17 04:37 BUN 21 mg/dL (9-20) H 01/02/17 04:37 Creatinine 0.6 mg/dL (0.8-1.5) L 01/02/17 04:37 Estimated GFR > 60 ml/min 01/02/17 04:37 BUN/Creatinine Ratio 35.00 % 01/02/17 04:37 Glucose 109 mg/dL (75-100) H 01/02/17 04:37 POC Glucose 109 (70-105) H 01/03/17 22:20 Lactic Acid 2.1 mmol/L (0.7-2.0) H* 12/16/16 21:48 Calcium 8.4 mg/dL (8.4-10.2) 01/02/17 04:37 Magnesium 1.6 mg/dL (1.7-2.3) L 12/25/16 17:21 Iron 45 ug/dL (49-181) L 12/16/16 11:14 TIBC 333.20 mcg/dL (250-450) 12/16/16 11:14 % Saturation 13.51 % 12/16/16 11:14 Transferrin 238 mg/dl (180-329) 12/16/16 11:14 Total Bilirubin 0.6 mg/dL (0.1-1.2) 12/27/16 05:46 AST 132 units/L (5-40) H 12/27/16 05:46 ALT 43 units/L (7-56) 12/27/16 05:46 Alkaline Phosphatase 96 units/L (35-129) 12/27/16 05:46 Total Creatine Kinase 82 units/L (55-170) 12/17/16 05:35 CK-MB (CK-2) 2.7 ng/mL (0.0-4.0) 12/17/16 05:35 CK-MB (CK-2) Rel Index 3.2 (0-4) 12/17/16 05:35 Total Protein 6.1 g/dL (6.3-8.2) L 12/27/16 05:46 Albumin 2.8 g/dL (3.9-5) L 12/27/16 05:46 Albumin/Globulin Ratio 0.8 % 12/27/16 05:46 Urine Color Yellow (Yellow) 12/20/16 Unknown Urine Turbidity Cloudy (Clear) 12/20/16 Unknown Urine pH 5.0 (5.0-7.0) 12/20/16 Unknown Ur Specific [place] 1.012 (1.003-1.030) 12/20/16 Unknown Urine Protein 30 mg/dl mg/dL (Negative) 12/20/16 Unknown Urine Glucose (UA) Neg mg/dL (Negative) 12/20/16 Unknown Urine Ketones Neg mg/dL (Negative) 12/20/16 Unknown Urine Blood Mod (Negative) 12/20/16 Unknown Urine Nitrite Neg (Negative) 12/20/16 Unknown Ur Reducing Substances Not Reportable 12/20/16 Unknown Urine Bilirubin Neg (Negative) 12/20/16 Unknown Urine Ictotest Not Reportable 12/20/16 Unknown Urine Urobilinogen < 2.0 mg/dL (<2.0) 12/20/16 Unknown Ur Leukocyte Esterase Lg (Negative) 12/20/16 Unknown Urine WBC (Auto) 181.0 /HPF (0.0-6.0) H 12/20/16 Unknown Urine RBC (Auto) 44.0 /HPF (0.0-6.0) 12/20/16 Unknown U Epithel Cells (Auto) 1.0 /HPF (0-13.0) 12/20/16 Unknown Urine Bacteria (Auto) 1+ /HPF (Negative) 12/20/16 Unknown Urine WBC Clumps 2+ /HPF 12/20/16 Unknown Amorphous Crystals Few 12/16/16 08:28 Hyaline Casts 2 /LPF 12/20/16 Unknown Urine Mucus 1+ /HPF 12/20/16 Unknown Urine Yeast (Budding) 3+ /HPF 12/20/16 Unknown Urine Sperm Few /HPF (LOGISTICS PLANNING MANAGER) 12/20/16 Unknown Blood Type B POSITIVE 12/16/16 07:20 Antibody Screen Negative 12/16/16 07:20
[2017-01-04] MEDS: DUONEB 0.5 MG-3 MG/3 ML SOLN IH SCH ×3 (07:38→20:21)
[2017-01-04] MEDS: HALDOL FEEDTUBE SCH ×2 (10:31→21:47)
[2017-01-04] MEDS: LOPRESSOR PO SCH (10:32)
[2017-01-04] MEDS: TRIPLE ANTIBIOTIC TP SCH (10:32)
[2017-01-04] MEDS: BABY ASPIRIN FEEDTUBE SCH (10:33)
[2017-01-04] MEDS: COLACE FEEDTUBE SCH (10:33)
[2017-01-04] MEDS: CYMBALTA PO SCH (10:33)
[2017-01-04] MEDS: NORVASC FEEDTUBE SCH (10:34)
[2017-01-04] MEDS: NACL 0.9% 1000 ML 1,000 ML IV SCH (12:35)
--- NOTE | 2017-01-04 14:28 | Progress Note ---
Assessment and Plan Assessment and plan: Toxic metabolic encephalopathy due to UTI and sepsis. Supportive care, neurochecks Sepsis secondary to UTI. Completed levaquin UTI. Completed Levaquin IV. Patient came in with indwelling jacobson catheter from home. Leukocytosis due to sepsis, UTI. Coronary artery disease s/p CABG. This is stable, no chest pain or shortness of breath. On Aspirin, Lopressor Hypertensive urgency. Blood pressure improving. Hyperlipidemia Dementia. He was cared for at home by family members. Malnutrition, s/p PEG tube placement DVT prophylaxis with subcutaneous heparin Full CODE STATUS patient is medically stable for discharge. Disposition Plan: pending [facility] placement. - Patient Problems (1) Altered mental status Current Visit: Yes Status: Acute Qualifiers: Altered mental status type: disorientation Coma depth: C Coma timing: C Qualified Code(s): R41.0 - Disorientation, unspecified (2) Encephalopathy Current Visit: Yes Status: Acute (3) Physical deconditioning Current Visit: Yes Status: Acute (4) Pyelonephritis Current Visit: Yes Status: Acute (5) Volume depletion Current Visit: Yes Status: Acute (6) Dementia Current Visit: Yes Status: Chronic Qualifiers: Dementia type: unspecified type Alzheimer's disease onset: A Dementia behavioral disturbance: without behavioral disturbance Qualified Code(s): F03.90 - Unspecified dementia without behavioral disturbance History Interval history: Patient was seen and evaluated this morning. No nursing issues overnight. Patient does not have any new complaints. Hospitalist Physical - Physical exam Narrative exam: Not in cardiopulmonary distress. The patient appeared well nourished and normally developed. Vital signs as documented. Head exam is unremarkable. No scleral icterus . Neck is without jugular venous distension, thyromegaly, or carotid bruits. Lungs are clear to auscultation. Cardiac exam reveals regular rate and Rhythm. First and second heart sounds normal. No murmurs, rubs or gallops. Abdominal exam reveals normal bowel sounds, no masses, no organomegaly and no aortic enlargement. Extremities are nonedematous and both femoral and pedal pulses are normal. 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 - Constitutional Vitals: Temp Pulse Resp BP Pulse Ox 98.6 F 81 20 195/76 98 01/04/17 09:38 01/04/17 10:34 01/04/17 09:38 01/04/17 10:34 01/04/17 09:38 General appearance: Present: no acute distress, cachectic Results - Labs CBC & Chem 7: 01/02/17 04:37 01/02/17 04:37 Labs: Laboratory Last Values WBC 9.8 K/mm3 (4.5-11.0) 01/02/17 04:37 RBC 3.27 M/mm3 (3.65-5.03) L 01/02/17 04:37 Hgb 9.2 gm/dl (11.8-15.2) L 01/02/17 04:37 Hct 27.6 % (35.5-45.6) L 01/02/17 04:37 MCV 84 fl (84-94) 01/02/17 04:37 MCH 28 pg (28-32) 01/02/17 04:37 MCHC 34 % (32-34) 01/02/17 04:37 RDW 16.5 % (13.2-15.2) H 01/02/17 04:37 Plt Count 255 K/mm3 (140-440) 01/02/17 04:37 Lymph % (Auto) 19.0 % (13.4-35.0) 12/16/16 07:20 [place] % (Auto) 9.4 % (0.0-7.3) H 12/16/16 07:20 Eos % (Auto) 6.1 % (0.0-4.3) H 12/16/16 07:20 Baso % (Auto) 0.6 % (0.0-1.8) 12/16/16 07:20 Lymph # 1.9 K/mm3 (1.2-5.4) 12/16/16 07:20 [place] # 0.9 K/mm3 (0.0-0.8) H 12/16/16 07:20 Eos # 0.6 K/mm3 (0.0-0.4) H 12/16/16 07:20 Baso # 0.1 K/mm3 (0.0-0.1) 12/16/16 07:20 Seg Neutrophils % 64.9 % (40.0-70.0) 12/16/16 07:20 Seg Neutrophils # 6.3 K/mm3 (1.8-7.7) 12/16/16 07:20 PT 13.2 Sec. (12.2-14.9) 12/26/16 04:25 INR 1.01 (0.87-1.13) 12/26/16 04:25 APTT 31.7 Sec. (24.2-36.6) 12/26/16 04:25 Sodium 138 mmol/L (137-145) 01/02/17 04:37 Potassium 4.2 mmol/L (3.6-5.0) 01/02/17 04:37 Chloride 101.6 mmol/L (98-107) 01/02/17 04:37 Carbon Dioxide 25 mmol/L (22-30) 01/02/17 04:37 Anion Gap 16 mmol/L 01/02/17 04:37 BUN 21 mg/dL (9-20) H 01/02/17 04:37 Creatinine 0.6 mg/dL (0.8-1.5) L 01/02/17 04:37 Estimated GFR > 60 ml/min 01/02/17 04:37 BUN/Creatinine Ratio 35.00 % 01/02/17 04:37 Glucose 109 mg/dL (75-100) H 01/02/17 04:37 POC Glucose 121 (70-105) H 01/04/17 11:54 Lactic Acid 2.1 mmol/L (0.7-2.0) H* 12/16/16 21:48 Calcium 8.4 mg/dL (8.4-10.2) 01/02/17 04:37 Magnesium 1.6 mg/dL (1.7-2.3) L 12/25/16 17:21 Iron 45 ug/dL (49-181) L 12/16/16 11:14 TIBC 333.20 mcg/dL (250-450) 12/16/16 11:14 % Saturation 13.51 % 12/16/16 11:14 Transferrin 238 mg/dl (180-329) 12/16/16 11:14 Total Bilirubin 0.6 mg/dL (0.1-1.2) 12/27/16 05:46 AST 132 units/L (5-40) H 12/27/16 05:46 ALT 43 units/L (7-56) 12/27/16 05:46 Alkaline Phosphatase 96 units/L (35-129) 12/27/16 05:46 Total Creatine Kinase 82 units/L (55-170) 12/17/16 05:35 CK-MB (CK-2) 2.7 ng/mL (0.0-4.0) 12/17/16 05:35 CK-MB (CK-2) Rel Index 3.2 (0-4) 12/17/16 05:35 Total Protein 6.1 g/dL (6.3-8.2) L 12/27/16 05:46 Albumin 2.8 g/dL (3.9-5) L 12/27/16 05:46 Albumin/Globulin Ratio 0.8 % 12/27/16 05:46 Urine Color Yellow (Yellow) 12/20/16 Unknown Urine Turbidity Cloudy (Clear) 12/20/16 Unknown Urine pH 5.0 (5.0-7.0) 12/20/16 Unknown Ur Specific [place] 1.012 (1.003-1.030) 12/20/16 Unknown Urine Protein 30 mg/dl mg/dL (Negative) 12/20/16 Unknown Urine Glucose (UA) Neg mg/dL (Negative) 12/20/16 Unknown Urine Ketones Neg mg/dL (Negative) 12/20/16 Unknown Urine Blood Mod (Negative) 12/20/16 Unknown Urine Nitrite Neg (Negative) 12/20/16 Unknown Ur Reducing Substances Not Reportable 12/20/16 Unknown Urine Bilirubin Neg (Negative) 12/20/16 Unknown Urine Ictotest Not Reportable 12/20/16 Unknown Urine Urobilinogen < 2.0 mg/dL (<2.0) 12/20/16 Unknown Ur Leukocyte Esterase Lg (Negative) 12/20/16 Unknown Urine WBC (Auto) 181.0 /HPF (0.0-6.0) H 12/20/16 Unknown Urine RBC (Auto) 44.0 /HPF (0.0-6.0) 12/20/16 Unknown U Epithel Cells (Auto) 1.0 /HPF (0-13.0) 12/20/16 Unknown Urine Bacteria (Auto) 1+ /HPF (Negative) 12/20/16 Unknown Urine WBC Clumps 2+ /HPF 12/20/16 Unknown Amorphous Crystals Few 12/16/16 08:28 Hyaline Casts 2 /LPF 12/20/16 Unknown Urine Mucus 1+ /HPF 12/20/16 Unknown Urine Yeast (Budding) 3+ /HPF 12/20/16 Unknown Urine Sperm Few /HPF (REVENUE CYCLE SPECIALIST) 12/20/16 Unknown Blood Type B POSITIVE 12/16/16 07:20 Antibody Screen Negative 12/16/16 07:20
--- NOTE | 2017-01-04 19:01 | Progress Note ---
Subjective - Reason for Consult Reason for consult: psych consult - Chief Complaint Chief complaint: Mr. Loera is an 81 year old male with history of dementia who we've been asked to see for concerns over his agitation. Patient continues to present as before. The nursing staff note no specific concerns- especially with agitation. The patient remains confused, a lot to do with is poor hearing, lack of stimuli, and a routine. Mental Status Exam - Vital signs Last Vital Signs Temp 98.6 F 01/04/17 09:38 Pulse 74 01/04/17 17:46 Resp 17 01/04/17 17:46 BP 90/39 01/04/17 15:09 Pulse Ox 98 01/04/17 09:38 - Exam Orientation: person Affect: normal Mood: other (no answer) Thought Process: Disoriented Perceptions: none Speech: other (slow mumbling) Concentration: unable to pay attention Motor activity: restless Level of consciousness: confused Memory: Recent Impaired, Remote Impaired Interaction: cooperative Mini mental status exam(if necessary): 0-17 Assessment and Plan Mr. Loera is an 81 year old male who we've been asked to see for concerns over his agitation. Patient has a history of dementia. Problem: Agitation: His behaviors are in line with agitation secondary to medical issues or those consistent with being away from his familiar routine. His dementia precludes him from being an active participant in his recovery from the insult. As such we should focus on returning him to his routine as much as possible in hopes of decreasing this agitation. When I went to see him he still has poor sleep/wake cycle. Getting back to a familiar sleep cycle should be a focus while his medical issues are being addressed as a first step. Patient seemed to tolerate the remeron used for helping with sleep regulation. His physical condition likely plays a significant role in his lack of energy though. No change to psych meds at this time. Will sign off on patient- please reconsult if necessary.
[2017-01-04] MEDS: PAMELOR PO SCH (21:46)
[2017-01-04] MEDS: LaMICtal PO SCH (21:47)
[2017-01-04] MEDS: FLOMAX PO SCH (21:47)
[2017-01-04] MEDS: LOVENOX SUB-Q SCH (21:47)
[2017-01-04] MEDS: DESYREL PO SCH (21:47)
[2017-01-05] MEDS: ALPHAGAN P 0.15% OU SCH ×4 (02:00→17:51)
[2017-01-05] MEDS: NACL 0.9% 1000 ML 1,000 ML IV SCH ×2 (05:23→22:13)
[2017-01-05] MEDS: ATIVAN IV PRN (05:23)
[2017-01-05] MEDS: APRESOLINE PO SCH ×3 (06:00→22:46)
[2017-01-05] MEDS: DUONEB 0.5 MG-3 MG/3 ML SOLN IH SCH ×3 (08:42→20:22)
[2017-01-05] MEDS: TRIPLE ANTIBIOTIC TP SCH (09:45)
[2017-01-05] MEDS: COLACE FEEDTUBE SCH (09:45)
[2017-01-05] MEDS: BABY ASPIRIN FEEDTUBE SCH (09:45)
[2017-01-05] MEDS: NORVASC FEEDTUBE SCH (10:03)
[2017-01-05] MEDS: LOPRESSOR PO SCH (10:04)
[2017-01-05] MEDS: CYMBALTA PO SCH (10:07)
[2017-01-05] MEDS: HALDOL FEEDTUBE SCH ×2 (10:20→22:21)
--- NOTE | 2017-01-05 17:08 | Progress Note ---
Assessment and Plan Assessment and plan: Toxic metabolic encephalopathy due to UTI and sepsis. Supportive care, neurochecks Sepsis secondary to UTI. Completed levaquin UTI. Completed Levaquin IV. Patient came in with indwelling jacobson catheter from home. Leukocytosis due to sepsis, UTI. Coronary artery disease s/p CABG. This is stable, no chest pain or shortness of breath. On Aspirin, Lopressor Hypertensive urgency. Blood pressure improving. Hyperlipidemia Dementia. He was cared for at home by family members. Malnutrition, s/p PEG tube placement DVT prophylaxis with subcutaneous heparin Full CODE STATUS patient is medically stable for discharge. Pending fdc placement. - Patient Problems (1) Altered mental status Current Visit: Yes Status: Acute Qualifiers: Altered mental status type: disorientation Coma depth: C Coma timing: C Qualified Code(s): R41.0 - Disorientation, unspecified (2) Encephalopathy Current Visit: Yes Status: Acute (3) Physical deconditioning Current Visit: Yes Status: Acute (4) Pyelonephritis Current Visit: Yes Status: Acute (5) Volume depletion Current Visit: Yes Status: Acute (6) Dementia Current Visit: Yes Status: Chronic Qualifiers: Dementia type: unspecified type Alzheimer's disease onset: A Dementia behavioral disturbance: without behavioral disturbance Qualified Code(s): F03.90 - Unspecified dementia without behavioral disturbance History Interval history: Patient was seen and evaluated this morning. No nursing issues overnight. Patient does not have any new complaints. Hospitalist Physical - Physical exam Narrative exam: Not in cardiopulmonary distress. The patient appeared well nourished and normally developed. Vital signs as documented. Head exam is unremarkable. No scleral icterus . Neck is without jugular venous distension, thyromegaly, or carotid bruits. Lungs are clear to auscultation. Cardiac exam reveals regular rate and Rhythm. First and second heart sounds normal. No murmurs, rubs or gallops. Abdominal exam reveals normal bowel sounds, no masses, no organomegaly and no aortic enlargement. Extremities are nonedematous and both femoral and pedal pulses are normal. 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 - Constitutional Vitals: Temp Pulse Resp BP Pulse Ox 98.2 F 85 20 119/65 100 01/05/17 10:00 01/05/17 14:19 01/05/17 10:00 01/05/17 14:19 01/05/17 10:00 General appearance: Present: no acute distress, cachectic Results - Labs CBC & Chem 7: 01/02/17 04:37 01/02/17 04:37 Labs: Laboratory Last Values WBC 9.8 K/mm3 (4.5-11.0) 01/02/17 04:37 RBC 3.27 M/mm3 (3.65-5.03) L 01/02/17 04:37 Hgb 9.2 gm/dl (11.8-15.2) L 01/02/17 04:37 Hct 27.6 % (35.5-45.6) L 01/02/17 04:37 MCV 84 fl (84-94) 01/02/17 04:37 MCH 28 pg (28-32) 01/02/17 04:37 MCHC 34 % (32-34) 01/02/17 04:37 RDW 16.5 % (13.2-15.2) H 01/02/17 04:37 Plt Count 255 K/mm3 (140-440) 01/02/17 04:37 Lymph % (Auto) 19.0 % (13.4-35.0) 12/16/16 07:20 [place] % (Auto) 9.4 % (0.0-7.3) H 12/16/16 07:20 Eos % (Auto) 6.1 % (0.0-4.3) H 12/16/16 07:20 Baso % (Auto) 0.6 % (0.0-1.8) 12/16/16 07:20 Lymph # 1.9 K/mm3 (1.2-5.4) 12/16/16 07:20 [place] # 0.9 K/mm3 (0.0-0.8) H 12/16/16 07:20 Eos # 0.6 K/mm3 (0.0-0.4) H 12/16/16 07:20 Baso # 0.1 K/mm3 (0.0-0.1) 12/16/16 07:20 Seg Neutrophils % 64.9 % (40.0-70.0) 12/16/16 07:20 Seg Neutrophils # 6.3 K/mm3 (1.8-7.7) 12/16/16 07:20 PT 13.2 Sec. (12.2-14.9) 12/26/16 04:25 INR 1.01 (0.87-1.13) 12/26/16 04:25 APTT 31.7 Sec. (24.2-36.6) 12/26/16 04:25 Sodium 138 mmol/L (137-145) 01/02/17 04:37 Potassium 4.2 mmol/L (3.6-5.0) 01/02/17 04:37 Chloride 101.6 mmol/L (98-107) 01/02/17 04:37 Carbon Dioxide 25 mmol/L (22-30) 01/02/17 04:37 Anion Gap 16 mmol/L 01/02/17 04:37 BUN 21 mg/dL (9-20) H 01/02/17 04:37 Creatinine 0.6 mg/dL (0.8-1.5) L 01/02/17 04:37 Estimated GFR > 60 ml/min 01/02/17 04:37 BUN/Creatinine Ratio 35.00 % 01/02/17 04:37 Glucose 109 mg/dL (75-100) H 01/02/17 04:37 POC Glucose 118 (70-105) H 01/05/17 16:24 Lactic Acid 2.1 mmol/L (0.7-2.0) H* 12/16/16 21:48 Calcium 8.4 mg/dL (8.4-10.2) 01/02/17 04:37 Magnesium 1.6 mg/dL (1.7-2.3) L 12/25/16 17:21 Iron 45 ug/dL (49-181) L 12/16/16 11:14 TIBC 333.20 mcg/dL (250-450) 12/16/16 11:14 % Saturation 13.51 % 12/16/16 11:14 Transferrin 238 mg/dl (180-329) 12/16/16 11:14 Total Bilirubin 0.6 mg/dL (0.1-1.2) 12/27/16 05:46 AST 132 units/L (5-40) H 12/27/16 05:46 ALT 43 units/L (7-56) 12/27/16 05:46 Alkaline Phosphatase 96 units/L (35-129) 12/27/16 05:46 Total Creatine Kinase 82 units/L (55-170) 12/17/16 05:35 CK-MB (CK-2) 2.7 ng/mL (0.0-4.0) 12/17/16 05:35 CK-MB (CK-2) Rel Index 3.2 (0-4) 12/17/16 05:35 Total Protein 6.1 g/dL (6.3-8.2) L 12/27/16 05:46 Albumin 2.8 g/dL (3.9-5) L 12/27/16 05:46 Albumin/Globulin Ratio 0.8 % 12/27/16 05:46 Urine Color Yellow (Yellow) 12/20/16 Unknown Urine Turbidity Cloudy (Clear) 12/20/16 Unknown Urine pH 5.0 (5.0-7.0) 12/20/16 Unknown Ur Specific [place] 1.012 (1.003-1.030) 12/20/16 Unknown Urine Protein 30 mg/dl mg/dL (Negative) 12/20/16 Unknown Urine Glucose (UA) Neg mg/dL (Negative) 12/20/16 Unknown Urine Ketones Neg mg/dL (Negative) 12/20/16 Unknown Urine Blood Mod (Negative) 12/20/16 Unknown Urine Nitrite Neg (Negative) 12/20/16 Unknown Ur Reducing Substances Not Reportable 12/20/16 Unknown Urine Bilirubin Neg (Negative) 12/20/16 Unknown Urine Ictotest Not Reportable 12/20/16 Unknown Urine Urobilinogen < 2.0 mg/dL (<2.0) 12/20/16 Unknown Ur Leukocyte Esterase Lg (Negative) 12/20/16 Unknown Urine WBC (Auto) 181.0 /HPF (0.0-6.0) H 12/20/16 Unknown Urine RBC (Auto) 44.0 /HPF (0.0-6.0) 12/20/16 Unknown U Epithel Cells (Auto) 1.0 /HPF (0-13.0) 12/20/16 Unknown Urine Bacteria (Auto) 1+ /HPF (Negative) 12/20/16 Unknown Urine WBC Clumps 2+ /HPF 12/20/16 Unknown Amorphous Crystals Few 12/16/16 08:28 Hyaline Casts 2 /LPF 12/20/16 Unknown Urine Mucus 1+ /HPF 12/20/16 Unknown Urine Yeast (Budding) 3+ /HPF 12/20/16 Unknown Urine Sperm Few /HPF (MINE SAFETY MANAGER) 12/20/16 Unknown Blood Type B POSITIVE 12/16/16 07:20 Antibody Screen Negative 12/16/16 07:20
[2017-01-05] MEDS: LOVENOX SUB-Q SCH (22:17)
[2017-01-05] MEDS: LaMICtal PO SCH (22:20)
[2017-01-05] MEDS: DESYREL PO SCH (22:21)
[2017-01-05] MEDS: FLOMAX PO SCH (22:46)
[2017-01-06] MEDS: PAMELOR PO SCH ×2 (02:06→22:08)
[2017-01-06] MEDS: ALPHAGAN P 0.15% OU SCH ×3 (02:07→17:32)
[2017-01-06] MEDS: APRESOLINE PO SCH ×3 (05:09→22:09)
[2017-01-06] MEDS: DUONEB 0.5 MG-3 MG/3 ML SOLN IH SCH ×3 (07:21→19:25)
[2017-01-06] MEDS ORDERED: SODIUM BICARBONATE FEEDTUBE PRN ×2 (08:22→13:40)
[2017-01-06] MEDS ORDERED: SIMPLE SYRUP FEEDTUBE PRN ×4 (08:22→13:40)
[2017-01-06] MEDS ORDERED: PANCREAZE DR 10,500 UNIT FEEDTUBE PRN ×2 (08:22→13:40)
[2017-01-06] MEDS: CYMBALTA PO SCH (09:27)
[2017-01-06] MEDS: TRIPLE ANTIBIOTIC TP SCH (09:27)
[2017-01-06] MEDS: HALDOL FEEDTUBE SCH ×2 (09:27→22:08)
[2017-01-06] MEDS: COLACE FEEDTUBE SCH (09:27)
[2017-01-06] MEDS: NORVASC FEEDTUBE SCH (09:31)
[2017-01-06] MEDS: LOPRESSOR PO SCH (09:35)
[2017-01-06] MEDS: BABY ASPIRIN FEEDTUBE SCH (09:39)
[2017-01-06] MEDS: NACL 0.9% 1000 ML 1,000 ML IV SCH (12:26)
--- NOTE | 2017-01-06 15:12 | Progress Note ---
Assessment and Plan Assessment and plan: Toxic metabolic encephalopathy due to UTI and sepsis. Supportive care, neurochecks Sepsis secondary to UTI. Completed levaquin UTI. Completed Levaquin IV. Patient came in with indwelling jacobson catheter from home. Leukocytosis due to sepsis, UTI. Coronary artery disease s/p CABG. This is stable, no chest pain or shortness of breath. On Aspirin, Lopressor Hypertensive urgency. Blood pressure improving. Hyperlipidemia Dementia. He was cared for at home by family members. Malnutrition, s/p PEG tube placement DVT prophylaxis with subcutaneous heparin Full CODE STATUS patient is medically stable for discharge. Pending fci placement. - Patient Problems (1) Altered mental status Current Visit: Yes Status: Acute Qualifiers: Altered mental status type: disorientation Coma depth: C Coma timing: C Qualified Code(s): R41.0 - Disorientation, unspecified (2) Encephalopathy Current Visit: Yes Status: Acute (3) Physical deconditioning Current Visit: Yes Status: Acute (4) Pyelonephritis Current Visit: Yes Status: Acute (5) Volume depletion Current Visit: Yes Status: Acute (6) Dementia Current Visit: Yes Status: Chronic Qualifiers: Dementia type: unspecified type Alzheimer's disease onset: A Dementia behavioral disturbance: without behavioral disturbance Qualified Code(s): F03.90 - Unspecified dementia without behavioral disturbance History Interval history: Patient was seen and evaluated this morning. No nursing issues overnight. Patient does not have any new complaints. Hospitalist Physical - Physical exam Narrative exam: Not in cardiopulmonary distress. The patient appeared well nourished and normally developed. Vital signs as documented. Head exam is unremarkable. No scleral icterus . Neck is without jugular venous distension, thyromegaly, or carotid bruits. Lungs are clear to auscultation. Cardiac exam reveals regular rate and Rhythm. First and second heart sounds normal. No murmurs, rubs or gallops. Abdominal exam reveals normal bowel sounds, no masses, no organomegaly and no aortic enlargement. Extremities are nonedematous and both femoral and pedal pulses are normal. 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 - Constitutional Vitals: Temp Pulse Resp BP Pulse Ox 98.5 F 58 L 18 93/65 98 01/06/17 09:08 01/06/17 14:27 01/06/17 14:27 01/06/17 14:00 01/06/17 10:00 General appearance: Present: no acute distress, cachectic Results - Labs CBC & Chem 7: 01/02/17 04:37 01/02/17 04:37 Labs: Laboratory Last Values WBC 9.8 K/mm3 (4.5-11.0) 01/02/17 04:37 RBC 3.27 M/mm3 (3.65-5.03) L 01/02/17 04:37 Hgb 9.2 gm/dl (11.8-15.2) L 01/02/17 04:37 Hct 27.6 % (35.5-45.6) L 01/02/17 04:37 MCV 84 fl (84-94) 01/02/17 04:37 MCH 28 pg (28-32) 01/02/17 04:37 MCHC 34 % (32-34) 01/02/17 04:37 RDW 16.5 % (13.2-15.2) H 01/02/17 04:37 Plt Count 255 K/mm3 (140-440) 01/02/17 04:37 Lymph % (Auto) 19.0 % (13.4-35.0) 12/16/16 07:20 [place] % (Auto) 9.4 % (0.0-7.3) H 12/16/16 07:20 Eos % (Auto) 6.1 % (0.0-4.3) H 12/16/16 07:20 Baso % (Auto) 0.6 % (0.0-1.8) 12/16/16 07:20 Lymph # 1.9 K/mm3 (1.2-5.4) 12/16/16 07:20 [place] # 0.9 K/mm3 (0.0-0.8) H 12/16/16 07:20 Eos # 0.6 K/mm3 (0.0-0.4) H 12/16/16 07:20 Baso # 0.1 K/mm3 (0.0-0.1) 12/16/16 07:20 Seg Neutrophils % 64.9 % (40.0-70.0) 12/16/16 07:20 Seg Neutrophils # 6.3 K/mm3 (1.8-7.7) 12/16/16 07:20 PT 13.2 Sec. (12.2-14.9) 12/26/16 04:25 INR 1.01 (0.87-1.13) 12/26/16 04:25 APTT 31.7 Sec. (24.2-36.6) 12/26/16 04:25 Sodium 138 mmol/L (137-145) 01/02/17 04:37 Potassium 4.2 mmol/L (3.6-5.0) 01/02/17 04:37 Chloride 101.6 mmol/L (98-107) 01/02/17 04:37 Carbon Dioxide 25 mmol/L (22-30) 01/02/17 04:37 Anion Gap 16 mmol/L 01/02/17 04:37 BUN 21 mg/dL (9-20) H 01/02/17 04:37 Creatinine 0.6 mg/dL (0.8-1.5) L 01/02/17 04:37 Estimated GFR > 60 ml/min 01/02/17 04:37 BUN/Creatinine Ratio 35.00 % 01/02/17 04:37 Glucose 109 mg/dL (75-100) H 01/02/17 04:37 POC Glucose 134 (70-105) H 01/06/17 11:07 Lactic Acid 2.1 mmol/L (0.7-2.0) H* 12/16/16 21:48 Calcium 8.4 mg/dL (8.4-10.2) 01/02/17 04:37 Magnesium 1.6 mg/dL (1.7-2.3) L 12/25/16 17:21 Iron 45 ug/dL (49-181) L 12/16/16 11:14 TIBC 333.20 mcg/dL (250-450) 12/16/16 11:14 % Saturation 13.51 % 12/16/16 11:14 Transferrin 238 mg/dl (180-329) 12/16/16 11:14 Total Bilirubin 0.6 mg/dL (0.1-1.2) 12/27/16 05:46 AST 132 units/L (5-40) H 12/27/16 05:46 ALT 43 units/L (7-56) 12/27/16 05:46 Alkaline Phosphatase 96 units/L (35-129) 12/27/16 05:46 Total Creatine Kinase 82 units/L (55-170) 12/17/16 05:35 CK-MB (CK-2) 2.7 ng/mL (0.0-4.0) 12/17/16 05:35 CK-MB (CK-2) Rel Index 3.2 (0-4) 12/17/16 05:35 Total Protein 6.1 g/dL (6.3-8.2) L 12/27/16 05:46 Albumin 2.8 g/dL (3.9-5) L 12/27/16 05:46 Albumin/Globulin Ratio 0.8 % 12/27/16 05:46 Urine Color Yellow (Yellow) 12/20/16 Unknown Urine Turbidity Cloudy (Clear) 12/20/16 Unknown Urine pH 5.0 (5.0-7.0) 12/20/16 Unknown Ur Specific [place] 1.012 (1.003-1.030) 12/20/16 Unknown Urine Protein 30 mg/dl mg/dL (Negative) 12/20/16 Unknown Urine Glucose (UA) Neg mg/dL (Negative) 12/20/16 Unknown Urine Ketones Neg mg/dL (Negative) 12/20/16 Unknown Urine Blood Mod (Negative) 12/20/16 Unknown Urine Nitrite Neg (Negative) 12/20/16 Unknown Ur Reducing Substances Not Reportable 12/20/16 Unknown Urine Bilirubin Neg (Negative) 12/20/16 Unknown Urine Ictotest Not Reportable 12/20/16 Unknown Urine Urobilinogen < 2.0 mg/dL (<2.0) 12/20/16 Unknown Ur Leukocyte Esterase Lg (Negative) 12/20/16 Unknown Urine WBC (Auto) 181.0 /HPF (0.0-6.0) H 12/20/16 Unknown Urine RBC (Auto) 44.0 /HPF (0.0-6.0) 12/20/16 Unknown U Epithel Cells (Auto) 1.0 /HPF (0-13.0) 12/20/16 Unknown Urine Bacteria (Auto) 1+ /HPF (Negative) 12/20/16 Unknown Urine WBC Clumps 2+ /HPF 12/20/16 Unknown Amorphous Crystals Few 12/16/16 08:28 Hyaline Casts 2 /LPF 12/20/16 Unknown Urine Mucus 1+ /HPF 12/20/16 Unknown Urine Yeast (Budding) 3+ /HPF 12/20/16 Unknown Urine Sperm Few /HPF (HISTOLOGY TECHNICIAN) 12/20/16 Unknown Blood Type B POSITIVE 12/16/16 07:20 Antibody Screen Negative 12/16/16 07:20
[2017-01-06] MEDS: LaMICtal PO SCH (22:08)
[2017-01-06] MEDS: DESYREL PO SCH (22:08)
[2017-01-06] MEDS: LOVENOX SUB-Q SCH (22:08)
[2017-01-06] MEDS: FLOMAX PO SCH (22:08)
[2017-01-07] MEDS: NACL 0.9% 1000 ML 1,000 ML IV SCH ×2 (02:37→18:35)
[2017-01-07] MEDS: ALPHAGAN P 0.15% OU SCH ×3 (02:38→18:31)
[2017-01-07] MEDS: APRESOLINE PO SCH ×3 (06:00→23:04)
[2017-01-07] MEDS: DUONEB 0.5 MG-3 MG/3 ML SOLN IH SCH ×3 (09:42→21:25)
[2017-01-07] MEDS: CYMBALTA PO SCH (10:00)
[2017-01-07] MEDS: COLACE FEEDTUBE SCH (10:00)
[2017-01-07] MEDS: NORVASC FEEDTUBE SCH (10:52)
[2017-01-07] MEDS: LOPRESSOR PO SCH (10:52)
[2017-01-07] MEDS: BABY ASPIRIN FEEDTUBE SCH (10:53)
[2017-01-07] MEDS: HALDOL FEEDTUBE SCH ×2 (11:00→23:13)
[2017-01-07] MEDS: TRIPLE ANTIBIOTIC TP SCH (11:00)
--- NOTE | 2017-01-07 16:16 | Progress Note ---
Assessment and Plan Assessment and plan: Toxic metabolic encephalopathy due to UTI and sepsis. Supportive care, neurochecks Sepsis secondary to UTI. Completed levaquin UTI. Completed Levaquin IV. Patient came in with indwelling jacobson catheter from home. Leukocytosis due to sepsis, UTI. Coronary artery disease s/p CABG. This is stable, no chest pain or shortness of breath. On Aspirin, Lopressor Hypertensive urgency. Blood pressure improving. Hyperlipidemia Dementia. He was cared for at home by family members. Malnutrition, s/p PEG tube placement DVT prophylaxis with subcutaneous heparin Full CODE STATUS patient is medically stable for discharge. Pending fdc placement. - Patient Problems (1) Altered mental status Current Visit: Yes Status: Acute Qualifiers: Altered mental status type: disorientation Coma depth: C Coma timing: C Qualified Code(s): R41.0 - Disorientation, unspecified (2) Encephalopathy Current Visit: Yes Status: Acute (3) Physical deconditioning Current Visit: Yes Status: Acute (4) Pyelonephritis Current Visit: Yes Status: Acute (5) Volume depletion Current Visit: Yes Status: Acute (6) Dementia Current Visit: Yes Status: Chronic Qualifiers: Dementia type: unspecified type Alzheimer's disease onset: A Dementia behavioral disturbance: without behavioral disturbance Qualified Code(s): F03.90 - Unspecified dementia without behavioral disturbance History Interval history: Patient was seen and evaluated this morning. No nursing issues overnight. Patient does not have any new complaints. Hospitalist Physical - Physical exam Narrative exam: Not in cardiopulmonary distress. The patient appeared well nourished and normally developed. Vital signs as documented. Head exam is unremarkable. No scleral icterus . Neck is without jugular venous distension, thyromegaly, or carotid bruits. Lungs are clear to auscultation. Cardiac exam reveals regular rate and Rhythm. First and second heart sounds normal. No murmurs, rubs or gallops. Abdominal exam reveals normal bowel sounds, no masses, no organomegaly and no aortic enlargement. Extremities are nonedematous and both femoral and pedal pulses are normal. 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 - Constitutional Vitals: Temp Pulse Resp BP Pulse Ox 98.5 F 58 L 20 105/44 98 01/06/17 09:08 01/07/17 14:47 01/07/17 09:49 01/07/17 14:47 01/07/17 09:42 General appearance: Present: no acute distress, cachectic Results - Labs CBC & Chem 7: 01/02/17 04:37 01/02/17 04:37 Labs: Laboratory Last Values WBC 9.8 K/mm3 (4.5-11.0) 01/02/17 04:37 RBC 3.27 M/mm3 (3.65-5.03) L 01/02/17 04:37 Hgb 9.2 gm/dl (11.8-15.2) L 01/02/17 04:37 Hct 27.6 % (35.5-45.6) L 01/02/17 04:37 MCV 84 fl (84-94) 01/02/17 04:37 MCH 28 pg (28-32) 01/02/17 04:37 MCHC 34 % (32-34) 01/02/17 04:37 RDW 16.5 % (13.2-15.2) H 01/02/17 04:37 Plt Count 255 K/mm3 (140-440) 01/02/17 04:37 Lymph % (Auto) 19.0 % (13.4-35.0) 12/16/16 07:20 [place] % (Auto) 9.4 % (0.0-7.3) H 12/16/16 07:20 Eos % (Auto) 6.1 % (0.0-4.3) H 12/16/16 07:20 Baso % (Auto) 0.6 % (0.0-1.8) 12/16/16 07:20 Lymph # 1.9 K/mm3 (1.2-5.4) 12/16/16 07:20 [place] # 0.9 K/mm3 (0.0-0.8) H 12/16/16 07:20 Eos # 0.6 K/mm3 (0.0-0.4) H 12/16/16 07:20 Baso # 0.1 K/mm3 (0.0-0.1) 12/16/16 07:20 Seg Neutrophils % 64.9 % (40.0-70.0) 12/16/16 07:20 Seg Neutrophils # 6.3 K/mm3 (1.8-7.7) 12/16/16 07:20 PT 13.2 Sec. (12.2-14.9) 12/26/16 04:25 INR 1.01 (0.87-1.13) 12/26/16 04:25 APTT 31.7 Sec. (24.2-36.6) 12/26/16 04:25 Sodium 138 mmol/L (137-145) 01/02/17 04:37 Potassium 4.2 mmol/L (3.6-5.0) 01/02/17 04:37 Chloride 101.6 mmol/L (98-107) 01/02/17 04:37 Carbon Dioxide 25 mmol/L (22-30) 01/02/17 04:37 Anion Gap 16 mmol/L 01/02/17 04:37 BUN 21 mg/dL (9-20) H 01/02/17 04:37 Creatinine 0.6 mg/dL (0.8-1.5) L 01/02/17 04:37 Estimated GFR > 60 ml/min 01/02/17 04:37 BUN/Creatinine Ratio 35.00 % 01/02/17 04:37 Glucose 109 mg/dL (75-100) H 01/02/17 04:37 POC Glucose 148 (70-105) H 01/07/17 11:17 Lactic Acid 2.1 mmol/L (0.7-2.0) H* 12/16/16 21:48 Calcium 8.4 mg/dL (8.4-10.2) 01/02/17 04:37 Magnesium 1.6 mg/dL (1.7-2.3) L 12/25/16 17:21 Iron 45 ug/dL (49-181) L 12/16/16 11:14 TIBC 333.20 mcg/dL (250-450) 12/16/16 11:14 % Saturation 13.51 % 12/16/16 11:14 Transferrin 238 mg/dl (180-329) 12/16/16 11:14 Total Bilirubin 0.6 mg/dL (0.1-1.2) 12/27/16 05:46 AST 132 units/L (5-40) H 12/27/16 05:46 ALT 43 units/L (7-56) 12/27/16 05:46 Alkaline Phosphatase 96 units/L (35-129) 12/27/16 05:46 Total Creatine Kinase 82 units/L (55-170) 12/17/16 05:35 CK-MB (CK-2) 2.7 ng/mL (0.0-4.0) 12/17/16 05:35 CK-MB (CK-2) Rel Index 3.2 (0-4) 12/17/16 05:35 Total Protein 6.1 g/dL (6.3-8.2) L 12/27/16 05:46 Albumin 2.8 g/dL (3.9-5) L 12/27/16 05:46 Albumin/Globulin Ratio 0.8 % 12/27/16 05:46 Urine Color Yellow (Yellow) 12/20/16 Unknown Urine Turbidity Cloudy (Clear) 12/20/16 Unknown Urine pH 5.0 (5.0-7.0) 12/20/16 Unknown Ur Specific [place] 1.012 (1.003-1.030) 12/20/16 Unknown Urine Protein 30 mg/dl mg/dL (Negative) 12/20/16 Unknown Urine Glucose (UA) Neg mg/dL (Negative) 12/20/16 Unknown Urine Ketones Neg mg/dL (Negative) 12/20/16 Unknown Urine Blood Mod (Negative) 12/20/16 Unknown Urine Nitrite Neg (Negative) 12/20/16 Unknown Ur Reducing Substances Not Reportable 12/20/16 Unknown Urine Bilirubin Neg (Negative) 12/20/16 Unknown Urine Ictotest Not Reportable 12/20/16 Unknown Urine Urobilinogen < 2.0 mg/dL (<2.0) 12/20/16 Unknown Ur Leukocyte Esterase Lg (Negative) 12/20/16 Unknown Urine WBC (Auto) 181.0 /HPF (0.0-6.0) H 12/20/16 Unknown Urine RBC (Auto) 44.0 /HPF (0.0-6.0) 12/20/16 Unknown U Epithel Cells (Auto) 1.0 /HPF (0-13.0) 12/20/16 Unknown Urine Bacteria (Auto) 1+ /HPF (Negative) 12/20/16 Unknown Urine WBC Clumps 2+ /HPF 12/20/16 Unknown Amorphous Crystals Few 12/16/16 08:28 Hyaline Casts 2 /LPF 12/20/16 Unknown Urine Mucus 1+ /HPF 12/20/16 Unknown Urine Yeast (Budding) 3+ /HPF 12/20/16 Unknown Urine Sperm Few /HPF (FLIGHT OPERATIONS ENGINEER) 12/20/16 Unknown Blood Type B POSITIVE 12/16/16 07:20 Antibody Screen Negative 12/16/16 07:20
[2017-01-07] MEDS: FLOMAX PO SCH (22:24)
[2017-01-07] MEDS: LOVENOX SUB-Q SCH (23:10)
[2017-01-07] MEDS: LaMICtal PO SCH (23:14)
[2017-01-07] MEDS: DESYREL PO SCH (23:15)
[2017-01-07] MEDS: PAMELOR PO SCH (23:16)
[2017-01-08] MEDS: ALPHAGAN P 0.15% OU SCH ×3 (01:33→18:03)
[2017-01-08] MEDS: APRESOLINE PO SCH ×3 (07:35→23:00)
[2017-01-08] MEDS: DUONEB 0.5 MG-3 MG/3 ML SOLN IH SCH ×3 (08:30→19:38)
[2017-01-08] MEDS: COLACE FEEDTUBE SCH (09:15)
[2017-01-08] MEDS: HALDOL FEEDTUBE SCH ×2 (09:15→23:00)
[2017-01-08] MEDS: TRIPLE ANTIBIOTIC TP SCH (09:16)
[2017-01-08] MEDS: BABY ASPIRIN FEEDTUBE SCH (09:16)
[2017-01-08] MEDS: NACL 0.9% 1000 ML 1,000 ML IV SCH (09:17)
[2017-01-08] MEDS: LOPRESSOR PO SCH (09:40)
[2017-01-08] MEDS: NORVASC FEEDTUBE SCH (09:41)
[2017-01-08] MEDS: CYMBALTA PO SCH (09:43)
--- NOTE | 2017-01-08 13:29 | Progress Note ---
Assessment and Plan Assessment and plan: Toxic metabolic encephalopathy due to UTI and sepsis. Supportive care, neurochecks Sepsis secondary to UTI. Completed levaquin UTI. Completed Levaquin IV. Patient came in with indwelling jacobson catheter from home. Leukocytosis due to sepsis, UTI. Coronary artery disease s/p CABG. This is stable, no chest pain or shortness of breath. On Aspirin, Lopressor Hypertensive urgency. Blood pressure improving. Hyperlipidemia Dementia. He was cared for at home by family members. Malnutrition, s/p PEG tube placement DVT prophylaxis with subcutaneous heparin Full CODE STATUS patient is medically stable for discharge. His daughter appealed. - Patient Problems (1) Altered mental status Current Visit: Yes Status: Acute Qualifiers: Altered mental status type: disorientation Coma depth: C Coma timing: C Qualified Code(s): R41.0 - Disorientation, unspecified (2) Encephalopathy Current Visit: Yes Status: Acute (3) Physical deconditioning Current Visit: Yes Status: Acute (4) Pyelonephritis Current Visit: Yes Status: Acute (5) Volume depletion Current Visit: Yes Status: Acute (6) Dementia Current Visit: Yes Status: Chronic Qualifiers: Dementia type: unspecified type Alzheimer's disease onset: A Dementia behavioral disturbance: without behavioral disturbance Qualified Code(s): F03.90 - Unspecified dementia without behavioral disturbance History Interval history: Patient was seen and evaluated this morning. No nursing issues overnight. Patient does not have any new complaints. Hospitalist Physical - Physical exam Narrative exam: Not in cardiopulmonary distress. The patient appeared well nourished and normally developed. Vital signs as documented. Head exam is unremarkable. No scleral icterus . Neck is without jugular venous distension, thyromegaly, or carotid bruits. Lungs are clear to auscultation. Cardiac exam reveals regular rate and Rhythm. First and second heart sounds normal. No murmurs, rubs or gallops. Abdominal exam reveals normal bowel sounds, no masses, no organomegaly and no aortic enlargement. Extremities are nonedematous and both femoral and pedal pulses are normal. 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 - Constitutional Vitals: Temp Pulse Resp BP Pulse Ox 98.5 F 69 20 132/48 99 01/06/17 09:08 01/08/17 09:41 01/08/17 08:42 01/08/17 09:41 01/08/17 10:00 General appearance: Present: no acute distress, cachectic Results - Labs CBC & Chem 7: 01/02/17 04:37 01/02/17 04:37 Labs: Laboratory Last Values WBC 9.8 K/mm3 (4.5-11.0) 01/02/17 04:37 RBC 3.27 M/mm3 (3.65-5.03) L 01/02/17 04:37 Hgb 9.2 gm/dl (11.8-15.2) L 01/02/17 04:37 Hct 27.6 % (35.5-45.6) L 01/02/17 04:37 MCV 84 fl (84-94) 01/02/17 04:37 MCH 28 pg (28-32) 01/02/17 04:37 MCHC 34 % (32-34) 01/02/17 04:37 RDW 16.5 % (13.2-15.2) H 01/02/17 04:37 Plt Count 255 K/mm3 (140-440) 01/02/17 04:37 Lymph % (Auto) 19.0 % (13.4-35.0) 12/16/16 07:20 [place] % (Auto) 9.4 % (0.0-7.3) H 12/16/16 07:20 Eos % (Auto) 6.1 % (0.0-4.3) H 12/16/16 07:20 Baso % (Auto) 0.6 % (0.0-1.8) 12/16/16 07:20 Lymph # 1.9 K/mm3 (1.2-5.4) 12/16/16 07:20 [place] # 0.9 K/mm3 (0.0-0.8) H 12/16/16 07:20 Eos # 0.6 K/mm3 (0.0-0.4) H 12/16/16 07:20 Baso # 0.1 K/mm3 (0.0-0.1) 12/16/16 07:20 Seg Neutrophils % 64.9 % (40.0-70.0) 12/16/16 07:20 Seg Neutrophils # 6.3 K/mm3 (1.8-7.7) 12/16/16 07:20 PT 13.2 Sec. (12.2-14.9) 12/26/16 04:25 INR 1.01 (0.87-1.13) 12/26/16 04:25 APTT 31.7 Sec. (24.2-36.6) 12/26/16 04:25 Sodium 138 mmol/L (137-145) 01/02/17 04:37 Potassium 4.2 mmol/L (3.6-5.0) 01/02/17 04:37 Chloride 101.6 mmol/L (98-107) 01/02/17 04:37 Carbon Dioxide 25 mmol/L (22-30) 01/02/17 04:37 Anion Gap 16 mmol/L 01/02/17 04:37 BUN 21 mg/dL (9-20) H 01/02/17 04:37 Creatinine 0.6 mg/dL (0.8-1.5) L 01/02/17 04:37 Estimated GFR > 60 ml/min 01/02/17 04:37 BUN/Creatinine Ratio 35.00 % 01/02/17 04:37 Glucose 109 mg/dL (75-100) H 01/02/17 04:37 POC Glucose 137 (70-105) H 01/08/17 11:41 Lactic Acid 2.1 mmol/L (0.7-2.0) H* 12/16/16 21:48 Calcium 8.4 mg/dL (8.4-10.2) 01/02/17 04:37 Magnesium 1.6 mg/dL (1.7-2.3) L 12/25/16 17:21 Iron 45 ug/dL (49-181) L 12/16/16 11:14 TIBC 333.20 mcg/dL (250-450) 12/16/16 11:14 % Saturation 13.51 % 12/16/16 11:14 Transferrin 238 mg/dl (180-329) 12/16/16 11:14 Total Bilirubin 0.6 mg/dL (0.1-1.2) 12/27/16 05:46 AST 132 units/L (5-40) H 12/27/16 05:46 ALT 43 units/L (7-56) 12/27/16 05:46 Alkaline Phosphatase 96 units/L (35-129) 12/27/16 05:46 Total Creatine Kinase 82 units/L (55-170) 12/17/16 05:35 CK-MB (CK-2) 2.7 ng/mL (0.0-4.0) 12/17/16 05:35 CK-MB (CK-2) Rel Index 3.2 (0-4) 12/17/16 05:35 Total Protein 6.1 g/dL (6.3-8.2) L 12/27/16 05:46 Albumin 2.8 g/dL (3.9-5) L 12/27/16 05:46 Albumin/Globulin Ratio 0.8 % 12/27/16 05:46 Urine Color Yellow (Yellow) 12/20/16 Unknown Urine Turbidity Cloudy (Clear) 12/20/16 Unknown Urine pH 5.0 (5.0-7.0) 12/20/16 Unknown Ur Specific [place] 1.012 (1.003-1.030) 12/20/16 Unknown Urine Protein 30 mg/dl mg/dL (Negative) 12/20/16 Unknown Urine Glucose (UA) Neg mg/dL (Negative) 12/20/16 Unknown Urine Ketones Neg mg/dL (Negative) 12/20/16 Unknown Urine Blood Mod (Negative) 12/20/16 Unknown Urine Nitrite Neg (Negative) 12/20/16 Unknown Ur Reducing Substances Not Reportable 12/20/16 Unknown Urine Bilirubin Neg (Negative) 12/20/16 Unknown Urine Ictotest Not Reportable 12/20/16 Unknown Urine Urobilinogen < 2.0 mg/dL (<2.0) 12/20/16 Unknown Ur Leukocyte Esterase Lg (Negative) 12/20/16 Unknown Urine WBC (Auto) 181.0 /HPF (0.0-6.0) H 12/20/16 Unknown Urine RBC (Auto) 44.0 /HPF (0.0-6.0) 12/20/16 Unknown U Epithel Cells (Auto) 1.0 /HPF (0-13.0) 12/20/16 Unknown Urine Bacteria (Auto) 1+ /HPF (Negative) 12/20/16 Unknown Urine WBC Clumps 2+ /HPF 12/20/16 Unknown Amorphous Crystals Few 12/16/16 08:28 Hyaline Casts 2 /LPF 12/20/16 Unknown Urine Mucus 1+ /HPF 12/20/16 Unknown Urine Yeast (Budding) 3+ /HPF 12/20/16 Unknown Urine Sperm Few /HPF (ATOMIZER ASSEMBLER) 12/20/16 Unknown Blood Type B POSITIVE 12/16/16 07:20 Antibody Screen Negative 12/16/16 07:20
[2017-01-08] MEDS: LOVENOX SUB-Q SCH (22:00)
[2017-01-08] MEDS: PAMELOR PO SCH (23:00)
[2017-01-08] MEDS: DESYREL PO SCH (23:00)
[2017-01-08] MEDS: LaMICtal PO SCH (23:00)
[2017-01-08] MEDS: FLOMAX PO SCH (23:00)
[2017-01-09] MEDS: ALPHAGAN P 0.15% OU SCH ×3 (02:27→19:06)
[2017-01-09 05:05] LABS: Hematocrit 26.7 % (35.5-45.6); Hemoglobin 8.9 gm/dl (11.8-15.2)
[2017-01-09 05:13] LABS: Anion Gap 14 mmol/L; Blood Urea Nitrogen 20 mg/dL (9-20); Calcium 8.6 mg/dL (8.4-10.2); Carbon Dioxide 27 mmol/L (22-30); Chloride 99.1 mmol/L (98-107); Glucose 92 mg/dL (75-100); Potassium 4.1 mmol/L (3.6-5.0); Sodium 136 mmol/L (137-145)
[2017-01-09] MEDS: APRESOLINE PO SCH ×3 (06:29→21:14)
[2017-01-09] MEDS: NORVASC FEEDTUBE SCH (09:26)
[2017-01-09] MEDS: BABY ASPIRIN FEEDTUBE SCH (09:26)
[2017-01-09] MEDS: COLACE FEEDTUBE SCH (09:26)
[2017-01-09] MEDS: TRIPLE ANTIBIOTIC TP SCH (09:27)
[2017-01-09] MEDS: HALDOL FEEDTUBE SCH ×2 (09:27→21:13)
[2017-01-09] MEDS: DUONEB 0.5 MG-3 MG/3 ML SOLN IH SCH ×3 (09:48→21:52)
[2017-01-09] MEDS: CYMBALTA PO SCH (10:00)
--- NOTE | 2017-01-09 15:42 | Progress Note ---
Assessment and Plan Assessment and plan: Toxic metabolic encephalopathy due to UTI and sepsis. - resolving, Supportive care, neurochecks Sepsis secondary to UTI. Completed levaquin Patient came in with indwelling jacobson catheter from home. Leukocytosis resolved. Coronary artery disease s/p CABG. - Stable. - On Aspirin, Lopressor HTN Hyperlipidemia Dementia - supportive care Malnutrition - s/p PEG tube placement DVT prophylaxis: subcutaneous heparin CODE STATUS: Full - Patient was stable for discharge and her daughter appealed his discharge 2x. - He will be taken by his daughter tomorrow. - Patient Problems (1) Altered mental status Current Visit: Yes Status: Acute Qualifiers: Altered mental status type: disorientation Coma depth: C Coma timing: C Qualified Code(s): R41.0 - Disorientation, unspecified (2) Encephalopathy Current Visit: Yes Status: Acute (3) Physical deconditioning Current Visit: Yes Status: Acute (4) Pyelonephritis Current Visit: Yes Status: Acute (5) Volume depletion Current Visit: Yes Status: Acute (6) Dementia Current Visit: Yes Status: Chronic Qualifiers: Dementia type: unspecified type Alzheimer's disease onset: A Dementia behavioral disturbance: without behavioral disturbance Qualified Code(s): F03.90 - Unspecified dementia without behavioral disturbance History Interval history: Patient was seen and evaluated this morning. No nursing issues overnight. Patient does not have any new complaints. Hospitalist Physical - Physical exam Narrative exam: Not in cardiopulmonary distress. The patient appeared well nourished and normally developed. Vital signs as documented. Head exam is unremarkable. No scleral icterus . Neck is without jugular venous distension, thyromegaly, or carotid bruits. Lungs are clear to auscultation. Cardiac exam reveals regular rate and Rhythm. First and second heart sounds normal. No murmurs, rubs or gallops. Abdominal exam reveals normal bowel sounds, no masses, no organomegaly and no aortic enlargement. Extremities are nonedematous and both femoral and pedal pulses are normal. 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 - Constitutional Vitals: Temp Pulse Resp BP Pulse Ox 98.5 F 63 20 164/52 100 01/06/17 09:08 01/09/17 15:07 01/09/17 15:07 01/09/17 09:26 01/09/17 10:00 General appearance: Present: no acute distress, cachectic Results - Labs CBC & Chem 7: 01/09/17 04:20 01/09/17 04:20 Labs: Laboratory Last Values WBC 9.8 K/mm3 (4.5-11.0) 01/02/17 04:37 RBC 3.27 M/mm3 (3.65-5.03) L 01/02/17 04:37 Hgb 8.9 gm/dl (11.8-15.2) L 01/09/17 04:20 Hct 26.7 % (35.5-45.6) L 01/09/17 04:20 MCV 84 fl (84-94) 01/02/17 04:37 MCH 28 pg (28-32) 01/02/17 04:37 MCHC 34 % (32-34) 01/02/17 04:37 RDW 16.5 % (13.2-15.2) H 01/02/17 04:37 Plt Count 255 K/mm3 (140-440) 01/02/17 04:37 Lymph % (Auto) 19.0 % (13.4-35.0) 12/16/16 07:20 [place] % (Auto) 9.4 % (0.0-7.3) H 12/16/16 07:20 Eos % (Auto) 6.1 % (0.0-4.3) H 12/16/16 07:20 Baso % (Auto) 0.6 % (0.0-1.8) 12/16/16 07:20 Lymph # 1.9 K/mm3 (1.2-5.4) 12/16/16 07:20 [place] # 0.9 K/mm3 (0.0-0.8) H 12/16/16 07:20 Eos # 0.6 K/mm3 (0.0-0.4) H 12/16/16 07:20 Baso # 0.1 K/mm3 (0.0-0.1) 12/16/16 07:20 Seg Neutrophils % 64.9 % (40.0-70.0) 12/16/16 07:20 Seg Neutrophils # 6.3 K/mm3 (1.8-7.7) 12/16/16 07:20 PT 13.2 Sec. (12.2-14.9) 12/26/16 04:25 INR 1.01 (0.87-1.13) 12/26/16 04:25 APTT 31.7 Sec. (24.2-36.6) 12/26/16 04:25 Sodium 136 mmol/L (137-145) L 01/09/17 04:20 Potassium 4.1 mmol/L (3.6-5.0) 01/09/17 04:20 Chloride 99.1 mmol/L (98-107) 01/09/17 04:20 Carbon Dioxide 27 mmol/L (22-30) 01/09/17 04:20 Anion Gap 14 mmol/L 01/09/17 04:20 BUN 20 mg/dL (9-20) 01/09/17 04:20 Creatinine 0.5 mg/dL (0.8-1.5) L 01/09/17 04:20 Estimated GFR > 60 ml/min 01/09/17 04:20 BUN/Creatinine Ratio 40.00 % 01/09/17 04:20 Glucose 92 mg/dL (75-100) 01/09/17 04:20 POC Glucose 117 (70-105) H 01/08/17 21:46 Lactic Acid 2.1 mmol/L (0.7-2.0) H* 12/16/16 21:48 Calcium 8.6 mg/dL (8.4-10.2) 01/09/17 04:20 Magnesium 1.6 mg/dL (1.7-2.3) L 12/25/16 17:21 Iron 45 ug/dL (49-181) L 12/16/16 11:14 TIBC 333.20 mcg/dL (250-450) 12/16/16 11:14 % Saturation 13.51 % 12/16/16 11:14 Transferrin 238 mg/dl (180-329) 12/16/16 11:14 Total Bilirubin 0.6 mg/dL (0.1-1.2) 12/27/16 05:46 AST 132 units/L (5-40) H 12/27/16 05:46 ALT 43 units/L (7-56) 12/27/16 05:46 Alkaline Phosphatase 96 units/L (35-129) 12/27/16 05:46 Total Creatine Kinase 82 units/L (55-170) 12/17/16 05:35 CK-MB (CK-2) 2.7 ng/mL (0.0-4.0) 12/17/16 05:35 CK-MB (CK-2) Rel Index 3.2 (0-4) 12/17/16 05:35 Total Protein 6.1 g/dL (6.3-8.2) L 12/27/16 05:46 Albumin 2.8 g/dL (3.9-5) L 12/27/16 05:46 Albumin/Globulin Ratio 0.8 % 12/27/16 05:46 Urine Color Yellow (Yellow) 12/20/16 Unknown Urine Turbidity Cloudy (Clear) 12/20/16 Unknown Urine pH 5.0 (5.0-7.0) 12/20/16 Unknown Ur Specific [place] 1.012 (1.003-1.030) 12/20/16 Unknown Urine Protein 30 mg/dl mg/dL (Negative) 12/20/16 Unknown Urine Glucose (UA) Neg mg/dL (Negative) 12/20/16 Unknown Urine Ketones Neg mg/dL (Negative) 12/20/16 Unknown Urine Blood Mod (Negative) 12/20/16 Unknown Urine Nitrite Neg (Negative) 12/20/16 Unknown Ur Reducing Substances Not Reportable 12/20/16 Unknown Urine Bilirubin Neg (Negative) 12/20/16 Unknown Urine Ictotest Not Reportable 12/20/16 Unknown Urine Urobilinogen < 2.0 mg/dL (<2.0) 12/20/16 Unknown Ur Leukocyte Esterase Lg (Negative) 12/20/16 Unknown Urine WBC (Auto) 181.0 /HPF (0.0-6.0) H 12/20/16 Unknown Urine RBC (Auto) 44.0 /HPF (0.0-6.0) 12/20/16 Unknown U Epithel Cells (Auto) 1.0 /HPF (0-13.0) 12/20/16 Unknown Urine Bacteria (Auto) 1+ /HPF (Negative) 12/20/16 Unknown Urine WBC Clumps 2+ /HPF 12/20/16 Unknown Amorphous Crystals Few 12/16/16 08:28 Hyaline Casts 2 /LPF 12/20/16 Unknown Urine Mucus 1+ /HPF 12/20/16 Unknown Urine Yeast (Budding) 3+ /HPF 12/20/16 Unknown Urine Sperm Few /HPF (CAREER AGENT) 12/20/16 Unknown Blood Type B POSITIVE 12/16/16 07:20 Antibody Screen Negative 12/16/16 07:20
[2017-01-09] MEDS: LOPRESSOR PO SCH (15:45)
[2017-01-09] MEDS: PAMELOR PO SCH (21:13)
[2017-01-09] MEDS: LaMICtal PO SCH (21:13)
[2017-01-09] MEDS: FLOMAX PO SCH (21:13)
[2017-01-09] MEDS: DESYREL PO SCH (21:14)
[2017-01-09] MEDS: LOVENOX SUB-Q SCH (21:16)
[2017-01-10] MEDS: ALPHAGAN P 0.15% OU SCH ×2 (02:40→09:44)
[2017-01-10] MEDS: ATIVAN IV PRN (02:41)
[2017-01-10] MEDS: NACL 0.9% 1000 ML 1,000 ML IV SCH (05:43)
[2017-01-10] MEDS: APRESOLINE PO SCH (06:00)
[2017-01-10] MEDS: DUONEB 0.5 MG-3 MG/3 ML SOLN IH SCH (08:59)
[2017-01-10 09:42] VITALS: BP 149/69
[2017-01-10] MEDS: HALDOL FEEDTUBE SCH (09:42)
[2017-01-10] MEDS: BABY ASPIRIN FEEDTUBE SCH (09:42)
[2017-01-10] MEDS: COLACE FEEDTUBE SCH (09:42)
[2017-01-10] MEDS: TRIPLE ANTIBIOTIC TP SCH (09:42)
[2017-01-10] MEDS: LOPRESSOR PO SCH (09:43)
[2017-01-10] MEDS: NORVASC FEEDTUBE SCH (09:44)
--- NOTE | 2017-01-10 12:22 | Discharge Summary ---
Providers - Providers Date of Admission: 12/16/16 09:15 Attending physician: MANI YOUSSEF MD 12/19/16 12:33 Speech Therapy Evaluation and Treat [CONS] Routine Reason For Exam: failed bedside swallow eval 12/21/16 11:03 Consult to Physician [CONS] Routine Consulting Provider: LAURA DAMON Reason For Exam: BPH, jacobson exchange Place consult to:: urol Notified:: office Was contact made?: Yes If yes, spoke with:: foreign Time called:: 11:10 Comment:: spoke w/ 12/23/16 11:15 Consult to Dietitian/Nutrition [CONS] Routine Physician Instructions: Reason For Exam: weight loss, while on tube feeding Reason for Consult: Write/Manage Tube Feeding 12/24/16 14:21 Consult to Physician [CONS] Routine Consulting Provider: SEBASTIEN ZHENG Reason For Exam: peg placement Place consult to:: Dr. Zheng Notified:: Georgette O[facility] Phone number called:: Was contact made?: Yes If yes, spoke with:: Jazmyne service Time called:: 14:35 12/24/16 14:23 Speech Therapy Evaluation and Treat [CONS] Routine Reason For Exam: re-evaluate swallowing 12/27/16 18:12 Consult to Wound/ET Nurse [CONS] Routine Reason For Exam: wound eval 01/02/17 18:12 Physical Therapy Evaluation and Treat [CONS] Stat Comment: Reason For Exam: PT EVAL NEEDED FOR DISPOSITION TO HOME VS SNF 01/05/17 16:31 Consult to Dietitian/Nutrition [CONS] Routine Physician Instructions: Reason For Exam: wounds/tube feeding/8 # weight loss since arrival Reason for Consult: Write/Manage Tube Feeding 01/06/17 15:21 Occupational Therapy Evaluate and Treat [CONS] Routine Comment: Reason For Exam: change in physical function Primary care physician: LINER HELPER Hospitalization Condition: Fair Hospital course: Toxic metabolic encephalopathy due to UTI and sepsis. - resolving, Supportive care, neurochecks Sepsis secondary to UTI. Completed levaquin Patient came in with indwelling jacobson catheter from home. Leukocytosis resolved. Coronary artery disease s/p CABG. - Stable. - On Aspirin, Lopressor HTN Hyperlipidemia Dementia - supportive care Malnutrition - s/p PEG tube placement DVT prophylaxis: subcutaneous heparin CODE STATUS: Full - Patient was stable for discharge and her daughter appealed his discharge 2x. - He will be taken by his daughter tomorrow. Disposition: DC/TX HOME UNDER HOME HEALTH Time spent for discharge: 35 minutes Core Measure Documentation - Palliative Care Palliative Care/ Comfort Measures: Not Applicable - Core Measures Any of the following diagnoses?: none Exam - Constitutional Vitals: Temp Pulse Resp BP Pulse Ox 97.6 F 98 H 20 149/69 100 01/10/17 09:37 01/10/17 09:44 01/10/17 09:37 01/10/17 09:44 01/09/17 21:54 General appearance: Present: no acute distress, well-nourished - EENT Eyes: Present: PERRL ENT: hearing intact, clear oral mucosa - Neck Neck: Present: supple, normal ROM - Respiratory Respiratory effort: normal Respiratory: bilateral: CTA - Cardiovascular Heart Sounds: Present: S1 & S2. Absent: rub, click - Extremities Extremities: pulses symmetrical, No edema Peripheral Pulses: within normal limits - Abdominal General gastrointestinal: Present: soft, non-tender, non-distended, normal bowel sounds Male genitourinary: Present: normal - Integumentary Integumentary: Present: clear, warm, dry - Musculoskeletal Musculoskeletal: gait normal, strength equal bilaterally - Psychiatric Psychiatric: appropriate mood/affect, intact judgment & insight - Neurologic Neurologic: CNII-XII intact, moves all extremities Plan Follow up with: MEGAN WILDER MD [Referring] - 7 Days PRIMARY CARE, [Primary Care Provider] - 3-5 Days Prescriptions: Haloperidol 0.5 mg PO BID #30 tablet hydrALAZINE [Apresoline TAB] 50 mg PO Q8HR #30 tablet lamoTRIgine [LaMICtal] 100 mg PO HS #30 tablet LORazepam [Ativan] 0.5 mg PO DAILY #5 tablet Methylphenidate [Ritalin] 2.5 mg PO DAILY #30 tablet
== END 2017-01-10 10:56 | disposition home health service (06) | DRG 871 ==
LOC: ED 05:30 → 4A 09:15 → CC2 12-26 17:16
PROVIDERS: ADMIT Family Medicine; ATTEND Internal Medicine
PROC: 0DH68UZ Insertion of Feeding Device into Stomach, Via Natural or Artificial Opening Endoscopic (ICD-10-PCS; principal; 2016-12-26)
DX: A41.9 Sepsis, unspecified organism (principal); G93.41 Metabolic encephalopathy; N17.0 Acute kidney failure with tubular necrosis; N39.0 Urinary tract infection, site not specified; E46 Unspecified protein-calorie malnutrition; Z68.1 Body mass index [BMI] 19.9 or less, adult; I48.91 Unspecified atrial fibrillation; I16.0 Hypertensive urgency; I25.10 Atherosclerotic heart disease of native coronary artery without angina pectoris; J44.9 Chronic obstructive pulmonary disease, unspecified; D64.9 Anemia, unspecified; E11.9 Type 2 diabetes mellitus without complications; H40.9 Unspecified glaucoma; G30.9 Alzheimer's disease, unspecified; F02.80 Dementia in other diseases classified elsewhere, unspecified severity, without behavioral disturbance, psychotic disturbance, mood disturbance, and anxiety; E78.5 Hyperlipidemia, unspecified; I12.9 Hypertensive chronic kidney disease with stage 1 through stage 4 chronic kidney disease, or unspecified chronic kidney disease; N18.9 Chronic kidney disease, unspecified; R33.9 Retention of urine, unspecified; E87.6 Hypokalemia; R13.10 Dysphagia, unspecified; K29.70 Gastritis, unspecified, without bleeding; K44.9 Diaphragmatic hernia without obstruction or gangrene; Z95.1 Presence of aortocoronary bypass graft; Z88.8 Allergy status to other drugs, medicaments and biological substances; Z86.73 Personal history of transient ischemic attack (TIA), and cerebral infarction without residual deficits; Z90.49 Acquired absence of other specified parts of digestive tract
CPT/HCPCS: 36415; 70450; 71010; 74000; 74230; 76770; 80048; 80053; 81001; 82040; 82140; 82550; 82553; 82962; 83550; 83735; 85014; 85018; 85025; 85027; 85610; 85730; 86850; 86900; 86901; 87040; 87086; 94640; 94644; 94760; 96365; 96366; A6250; G8978-GP; G8979-GP; G8987-GO; G8988-GO; G8996-GN; G8997-GN; G8998-GN; J0360; J1580; J1644; J1650; J1956; J2060; J2543; J2704; J3480; J7030

== ENCOUNTER 2017-01-18 01:24 | Emergency (ER) | payer MEDICARE ==
--- NOTE | 2017-01-18 03:28 | Emergency Department Report ---
ED Fall HPI - General Chief Complaint: Fall Stated Complaint: FALL Time Seen by Provider: 01/18/17 02:25 Source: family, EMS Mode of arrival: Stretcher - History of Present Illness Initial Comments: Patient is a 78-year-old male with a history of dementia presenting to the ER status post a roll out of bed. as per the daughter she found him on the floor patient was awake and alert no evidence of head trauma or LOC. Ohterwise no other complaints. - Related Data Home Medications Medication Instructions Recorded Confirmed Last Taken Albuterol Sulfate [Proventil HFA] 1 - 2 puff IH Q4H PRN 11/27/14 12/17/16 21:00 Aspirin [Aspirin BABY CHEW TAB] 81 mg PO QDAY 11/27/14 12/17/16 12/16/16 08:00 Docusate Sodium [Colace CAP] 100 mg PO DAILY 11/27/14 12/17/16 12/16/16 08:00 Duloxetine HCl [DULoxetine] 60 mg PO DAILY 11/27/14 12/17/16 12/16/16 08:00 Metoprolol [Lopressor TAB] 25 mg PO DAILY 11/27/14 12/17/16 11/30/16 08:00 Nortriptyline [Pamelor] 10 mg PO HS 11/27/14 12/17/16 12/16/16 21:00 Tamsulosin [Flomax] 0.4 mg PO HS 06/14/16 12/17/16 12/16/16 21:00 amLODIPine [Norvasc] 10 mg PO QDAY 09/12/16 12/17/16 11/30/16 08:00 Brimonidine 0.15% [Alphagan P 1 drops OP Q8H 09/16/16 12/17/16 11/30/16 08:00 0.15%] Methylphenidate HCl [Ritalin] 2.5 mg PO DAILY 09/16/16 12/17/16 12/16/16 08:00 Previous Rx's Medication Instructions Recorded Last Taken Type Ipratropium/Albuterol Sulfate 1 ampul IH TIDRT ampul.neb 06/21/16 Unknown Rx [Duoneb 0.5 mg-3 mg/3 ml Soln] Haloperidol 0.5 mg PO BID #30 tablet 12/22/16 Unknown Rx LORazepam [Ativan] 0.5 mg PO DAILY #5 tablet 12/22/16 Unknown Rx Methylphenidate [Ritalin] 2.5 mg PO DAILY #30 tablet 12/22/16 Unknown Rx hydrALAZINE [Apresoline TAB] 50 mg PO Q8HR #30 tablet 12/22/16 Unknown Rx lamoTRIgine [LaMICtal] 100 mg PO HS #30 tablet 12/22/16 Unknown Rx Allergies Allergy/AdvReac Type Severity Reaction Status Date / Time cefuroxime axetil Allergy Hives Verified 11/27/14 13:21 [From Ceftin] tetracycline Allergy Unknown Verified 11/27/14 13:22 ED Review of Systems ROS: Stated complaint: FALL Other details as noted in HPI Comment: All other systems reviewed and negative ED Past Medical Hx - Past Medical History Previous Medical History?: Yes Hx Hypertension: Yes Hx CVA: Yes (TIA) Hx Heart Attack/AMI: Yes Hx Congestive Heart Failure: Yes Hx Diabetes: Yes Hx Renal Disease: Yes (sepsis) Hx COPD: Yes Hx Dementia: Yes Hx HIV: No Additional medical history: enlarged prostate, urinary retention, glaucoma, dementia, alzheimers, CAD, diabetes - Surgical History Past Surgical History?: Yes Hx Open Heart Surgery: Yes Hx Cholecystectomy: Yes Additional Surgical History: Abdominal surgery had turmor removed - Social History Smoking Status: Unknown if ever smoked - Medications Home Medications: Home Medications Medication Instructions Recorded Confirmed Last Taken Type Albuterol Sulfate [Proventil HFA] 1 - 2 puff IH Q4H PRN 11/27/14 12/17/16 21:00 History Aspirin [Aspirin BABY CHEW TAB] 81 mg PO QDAY 11/27/14 12/17/16 12/16/16 08:00 History Docusate Sodium [Colace CAP] 100 mg PO DAILY 11/27/14 12/17/16 12/16/16 08:00 History Duloxetine HCl [DULoxetine] 60 mg PO DAILY 11/27/14 12/17/16 12/16/16 08:00 History Metoprolol [Lopressor TAB] 25 mg PO DAILY 11/27/14 12/17/16 11/30/16 08:00 History Nortriptyline [Pamelor] 10 mg PO HS 11/27/14 12/17/16 12/16/16 21:00 History Tamsulosin [Flomax] 0.4 mg PO HS 06/14/16 12/17/16 12/16/16 21:00 History Ipratropium/Albuterol Sulfate 1 ampul IH TIDRT ampul.neb 06/21/16 12/17/16 Unknown Rx [Duoneb 0.5 mg-3 mg/3 ml Soln] amLODIPine [Norvasc] 10 mg PO QDAY 09/12/16 12/17/16 11/30/16 08:00 History Brimonidine 0.15% [Alphagan P 1 drops OP Q8H 09/16/16 12/17/16 11/30/16 08:00 History 0.15%] Methylphenidate HCl [Ritalin] 2.5 mg PO DAILY 09/16/16 12/17/16 12/16/16 08:00 History Haloperidol 0.5 mg PO BID #30 tablet 12/22/16 Unknown Rx LORazepam [Ativan] 0.5 mg PO DAILY #5 tablet 12/22/16 Unknown Rx Methylphenidate [Ritalin] 2.5 mg PO DAILY #30 tablet 12/22/16 Unknown Rx hydrALAZINE [Apresoline TAB] 50 mg PO Q8HR #30 tablet 12/22/16 Unknown Rx lamoTRIgine [LaMICtal] 100 mg PO HS #30 tablet 12/22/16 Unknown Rx ED Physical Exam - General Limitations: Language Barrier, Physical Limitation, Other (Dementia) General appearance: alert, in no apparent distress - Head Head exam: Present: atraumatic, normocephalic, normal inspection - Eye Eye exam: Present: normal appearance, PERRL, EOMI. Absent: periorbital swelling , periorbital tenderness Pupils: Present: normal accommodation - ENT ENT exam: Present: mucous membranes moist - Neck Neck exam: Present: normal inspection - Respiratory Respiratory exam: Present: normal lung sounds bilaterally. Absent: respiratory distress - Cardiovascular Cardiovascular Exam: Present: regular rate, normal rhythm. Absent: systolic murmur, diastolic murmur, rubs, gallop - GI/Abdominal GI/Abdominal exam: Present: soft, normal bowel sounds - Rectal Rectal exam: Present: other (Stage 2 sacral ulcer) - exam: Present: normal inspection. Absent: scrotal swelling - Extremities Exam Extremities exam: Present: normal inspection, full ROM, other (eschar to R heel , multiple healing lesion to the dorsum of his feet bilaterally). Absent: tenderness - Back Exam Back exam: Present: normal inspection, full ROM. Absent: tenderness, paraspinal tenderness, vertebral tenderness, rash noted - Neurological Exam Neurological exam: Present: alert, CN II-XII intact. Absent: oriented X3 - Psychiatric Psychiatric exam: Present: normal mood - Skin Skin exam: Present: warm, dry ED Course Vital Signs 01/18/17 01:44 Temperature 97.6 F Pulse Rate 67 Respiratory 20 Rate Blood Pressure 139/61 [Left] O2 Sat by Pulse 98 Oximetry ED Medical Decision Making - Radiology Data Radiology results: report reviewed CT head reviewed no acute intracranial pathology Critical care attestation.: If time is entered above; I have spent that time in minutes in the direct care of this critically ill patient, excluding procedure time. ED Disposition Clinical Impression: Fall Disposition: DISCHARGED TO HOME OR SELFCARE Is pt being admited?: No Condition: Stable Instructions: Fall Prevention (ED) Referrals: PRIMARY CARE, [Primary Care Provider] - 3-5 Days
--- NOTE | 2017-01-18 04:11 | Cat Scan Report ---
FINAL REPORT PROCEDURE: CT HEAD/BRAIN WO CON TECHNIQUE: Computerized tomography of the head was performed without contrast material. HISTORY: head injury COMPARISON: 12/16/2016 FINDINGS: Skull and scalp: Normal. Paranasal sinuses: Normal. Ventricles and subarachnoid spaces: Normal. Cerebrum: No evidence of hemorrhage, acute infarction or mass moderate atrophy and periventricular deep white matter changes. 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 Cerebellum and brainstem: No evidence of hemorrhage, acute infarction or mass. Vasculature: Normal. Comments: None. IMPRESSION: There is no evidence of an acute intracranial process. Moderate atrophy and periventricular deep white matter changes. 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
[2017-01-18 07:17] VITALS: BP 132/76
== END 2017-01-18 08:47 | disposition home or self-care (01) ==
LOC: ED 01:24
DX: Z04.8 Encounter for examination and observation for other specified reasons (principal); W06.XXXA Fall from bed, initial encounter; Y93.9 Activity, unspecified; Y92.9 Unspecified place or not applicable; Y99.9 Unspecified external cause status; I10 Essential (primary) hypertension; I25.2 Old myocardial infarction; E11.9 Type 2 diabetes mellitus without complications; J44.9 Chronic obstructive pulmonary disease, unspecified; F03.90 Unspecified dementia, unspecified severity, without behavioral disturbance, psychotic disturbance, mood disturbance, and anxiety
CPT/HCPCS: 70450; 99284

== ENCOUNTER 2017-01-20 07:56 | Emergency (ER) | payer MEDICARE ==
--- NOTE | 2017-01-20 08:41 | Emergency Department Report ---
HPI - General Chief Complaint: Fall Time Seen by Provider: 01/20/17 08:34 - HPI HPI: This is an 81-year-old male who presents to the emergency department by EMS from his ECF with complaint of some blood in the Amaral catheter and a ground-level fall that occurred earlier today. The patient does have a history of dementia but the nursing staff and ECF relate that the patient does not appear to have any change in his mental status. He has a history of CHF, COPD, TIA, diabetes, VA, hypertension, BPH, and has a history of this Alzheimer's dementia. Unknown who his primary care doctor is. Patient does not have any physical complaints but also is a poor historian. ED Past Medical Hx - Past Medical History Previous Medical History?: Yes Hx Hypertension: Yes Hx CVA: Yes (TIA) Hx Heart Attack/AMI: Yes Hx Congestive Heart Failure: Yes Hx Diabetes: Yes Hx Renal Disease: Yes (sepsis) Hx COPD: Yes Hx Dementia: Yes Hx HIV: No Additional medical history: enlarged prostate, urinary retention, glaucoma, dementia, alzheimers, CAD, diabetes - Surgical History Past Surgical History?: Yes Hx Open Heart Surgery: Yes Hx Cholecystectomy: Yes Additional Surgical History: Abdominal surgery had turmor removed - Social History Smoking Status: Unknown if ever smoked Substance Use Type: None - Medications Home Medications: Home Medications Medication Instructions Recorded Confirmed Last Taken Type Albuterol Sulfate [Proventil HFA] 1 - 2 puff IH Q4H PRN 11/27/14 12/17/16 21:00 History Aspirin [Aspirin BABY CHEW TAB] 81 mg PO QDAY 11/27/14 12/17/16 12/16/16 08:00 History Docusate Sodium [Colace CAP] 100 mg PO DAILY 11/27/14 12/17/16 12/16/16 08:00 History Duloxetine HCl [DULoxetine] 60 mg PO DAILY 11/27/14 12/17/16 12/16/16 08:00 History Metoprolol [Lopressor TAB] 25 mg PO DAILY 11/27/14 12/17/16 11/30/16 08:00 History Nortriptyline [Pamelor] 10 mg PO HS 11/27/14 12/17/16 12/16/16 21:00 History Tamsulosin [Flomax] 0.4 mg PO HS 06/14/16 12/17/16 12/16/16 21:00 History Ipratropium/Albuterol Sulfate 1 ampul IH TIDRT ampul.neb 06/21/16 12/17/16 Unknown Rx [Duoneb 0.5 mg-3 mg/3 ml Soln] amLODIPine [Norvasc] 10 mg PO QDAY 09/12/16 12/17/16 11/30/16 08:00 History Brimonidine 0.15% [Alphagan P 1 drops OP Q8H 09/16/16 12/17/16 11/30/16 08:00 History 0.15%] Methylphenidate HCl [Ritalin] 2.5 mg PO DAILY 09/16/16 12/17/16 12/16/16 08:00 History Haloperidol 0.5 mg PO BID #30 tablet 12/22/16 Unknown Rx LORazepam [Ativan] 0.5 mg PO DAILY #5 tablet 12/22/16 Unknown Rx Methylphenidate [Ritalin] 2.5 mg PO DAILY #30 tablet 12/22/16 Unknown Rx hydrALAZINE [Apresoline TAB] 50 mg PO Q8HR #30 tablet 12/22/16 Unknown Rx lamoTRIgine [LaMICtal] 100 mg PO HS #30 tablet 12/22/16 Unknown Rx Nitrofurantoin [place]/M-Cryst 100 mg PO Q12HR #14 capsule 01/20/17 Unknown Rx [Macrobid CAP] ED Review of Systems ROS: Stated complaint: FALL Other details as noted in HPI Comment: Unobtainable due to pts medical conditions Physical Exam - Physical Exam Vital Signs: Vital Signs 01/20/17 08:14 Temperature 98.8 F Pulse Rate 85 Respiratory 22 Rate Blood Pressure 132/64 O2 Sat by Pulse 96 Oximetry Physical Exam: GENERAL: Patient is elderly appearing and in no acute distress. HEENT: Normocephalic. Atraumatic. Extraocular motions are intact. Patient has moist mucous membranes. Pupils equal reactive to light bilaterally. NECK: Supple. Trachea is midline. CHEST/LUNGS: Clear to auscultation. There is no respiratory distress noted. HEART/CARDIOVASCULAR: Regular. There is no tachycardia. There is no gallop rub or murmur. ABDOMEN: Abdomen is soft, nontender. Patient has normal bowel sounds. There is no abdominal distention. SKIN: There is no rash. There is no edema. There is no diaphoresis. NEURO: The patient is awake. Patient is confused. AAO 1. MUSCULOSKELETAL: There is no tenderness or deformity. Patient has some atrophy that is chronic but seen moving his extremities. Radial pulse +2 over 4 bilaterally. There is no evidence of acute injury. ED Course Vital Signs 01/20/17 08:14 Temperature 98.8 F Pulse Rate 85 Respiratory 22 Rate Blood Pressure 132/64 O2 Sat by Pulse 96 Oximetry ED Medical Decision Making - Lab Data Result diagrams: 01/20/17 08:56 01/20/17 08:56 - Radiology Data Radiology results: report reviewed, image reviewed interpreted by me: Chest x-ray does not show any obvious rib fracture, pneumothorax, pneumonia or any acute process. Pelvic x-ray shows some degenerative changes of the joints but otherwise no fracture or dislocation. X-ray of the right hip does not show any fracture, dislocation, subluxation or any acute process. CT of the cervical spine without contrast shows no acute CT abnormality with multilevel cervical spine degenerative changes. CT of the head without contrast shows no acute intracranial abnormality with age -appropriate atrophy, microvascular changes, lacunar infarcts and a few other findings. - Medical Decision Making 81-year-old male presents from the home he shares with his daughter with a complaint of some blood seen around the urethral meatus with a Amaral catheter in place as well as a recent fall. Patient was seen here for similar complaints a few days ago. The daughter says that he did have a fall this morning and that was what the EMS call was for but he did not spend much time on the ground and there were no obvious deformities at that time. The daughter says that he is at his baseline mental status. She says he is not supposed to try and walk but sometimes gets confused and falls out of bed. A CT of the head and cervical spine were done that did not show any acute process. X-rays of the chest, pelvis and right hip also do not show any acute process. Patient' s labs are mostly unremarkable other than a urinary tract infection. There was no significant blood seen in the Amaral catheter and only a small amount seen to the urethral tip. The patient has a urologist that he is followed up with for many years. I spoke with the daughter and suggested that he get a follow-up with primary care and urology. Since the imaging does not show any significant trauma, the patient will be discharged back to home. He will be started on an antibiotics for his urinary tract infection. Encouraged to return to the ER with any worsening of his symptoms or any acute distress. - Differential Diagnosis brain bleed, dementia, fracture, dislocation, UTI Critical Care Time: No Critical care attestation.: If time is entered above; I have spent that time in minutes in the direct care of this critically ill patient, excluding procedure time. ED Disposition Clinical Impression: Dementia Qualifiers: Dementia type: unspecified type Dementia behavioral disturbance: without behavioral disturbance Qualified Code(s): F03.90 - Unspecified dementia without behavioral disturbance Fall Qualifiers: Encounter type: initial encounter Qualified Code(s): W19.XXXA - Unspecified fall, initial encounter UTI (urinary tract infection) Qualifiers: Urinary tract infection type: acute cystitis Hematuria presence: without hematuria Qualified Code(s): N30.00 - Acute cystitis without hematuria Disposition: DISCHARGED TO HOME OR SELFCARE Is pt being admited?: No Condition: Stable Instructions: Urinary Tract Infection in Men (ED), Fall Prevention (ED) Additional Instructions: Please follow-up with the primary care doctor and urologist when possible. Return to the emergency department with any worsening of his symptoms or any acute distress. Prescriptions: Nitrofurantoin [place]/M-Cryst [Macrobid CAP] 100 mg PO Q12HR #14 capsule Referrals: PRIMARY CARE, [Primary Care Provider] - 3-5 Days Time of Disposition: 12:26
[2017-01-20 09:15] LABS: Basophils % (Auto) 0.6 % (0.0-1.8); Eosinophils % (Auto) 2.5 % (0.0-4.3); Hematocrit 34.2 % (35.5-45.6); Hemoglobin 11.3 gm/dl (11.8-15.2); Mean Corpuscular HGB Conc 33 % (32-34); Mean Corpuscular Hemoglobin 28 pg (28-32); Mean Corpuscular Volume 84 fl (84-94); Platelet Count 281 K/mm3 (140-440); Red Blood Count 4.08 M/mm3 (3.65-5.03); Red Cell Distribution Width 16.1 % (13.2-15.2); White Blood Count 13.7 K/mm3 (4.5-11.0)
--- NOTE | 2017-01-20 09:22 | XRay Report ---
Single view chest: Compared to 12/16/16. History: Fall. Findings: Normal cardiomediastinal silhouette the trachea is midline. No consolidation, pneumothorax or pleural effusion. Scarring left lower lobe. Impression: No acute cardiopulmonary findings.
--- NOTE | 2017-01-20 09:26 | XRay Report ---
PELVIS RADIOGRAPH INDICATION: Fall. COMPARISON: 12/16/2016 left hip views. FINDINGS: An AP pelvic radiograph again demonstrates normal femoral head contours and position within the acetabulum bilaterally, though right femoral neck not adequately assessed due to position/projection. Extensive atherosclerotic vascular calcifications, bilateral iliac stents and bony demineralization again noted. Intact remainder pelvic bones and SI joints. Some extrinsic tubing artifact. Nonobstructive bowel gas pattern/possible constipation. CONCLUSION: 1. Right hip not adequately assessed on this limited view. If concern for an underlying fracture exists, dedicated right hip views may be obtained. 2. Otherwise stable exam, as described. Thank you for the opportunity to participate in this patient's care.
[2017-01-20 09:33] LABS: Blood Urea Nitrogen 29 mg/dL (9-20); Calcium 9.3 mg/dL (8.4-10.2); Carbon Dioxide 31 mmol/L (22-30); Creatine Kinase 94 units/L (55-170); Glucose 95 mg/dL (75-100)
[2017-01-20 09:34] LABS: Anion Gap 16 mmol/L; Chloride 93.1 mmol/L (98-107); Potassium 4.7 mmol/L (3.6-5.0); Sodium 135 mmol/L (137-145)
[2017-01-20 09:46] LABS: Bacteria,Urine 2+ /HPF (Negative); Bilirubin,Urine NEG (Negative); Blood,Urine MOD (Negative); Ketones,Urine NEG (Negative); Leukocyte Esterase,Urine LG (Negative); Mucus,Urine FEW /HPF; Nitrite,Urine NEG (Negative); Protein,Urine <15 mg/dL mg/dL (Negative)
[2017-01-20] MEDS ORDERED: MACROBID PO ONE (10:11)
[2017-01-20] MEDS ORDERED: ATIVAN IV ONE ×2 (10:23→10:56)
--- NOTE | 2017-01-20 10:35 | XRay Report ---
RIGHT HIP RADIOGRAPHS INDICATION: Fall. COMPARISON: Pelvis radiograph from earlier today. FINDINGS: AP pelvis and a frog leg projection of the right hip demonstrate normal femoral head contour and position within the acetabulum. Remainder exam, including demineralized bones, extensive atherosclerotic calcifications and bilateral iliac stents again noted. CONCLUSION: No acute right hip radiographic abnormality, as described. Thank you for the opportunity to participate in this patient's care.
--- NOTE | 2017-01-20 11:49 | Cat Scan Report ---
CT HEAD WITHOUT CONTRAST INDICATION: Fall. COMPARISON: 01/18/2017. FINDINGS: Noncontrast head CT again demonstrates stable, age appropriate ventricles and sulci with moderate to severe periventricular and white matter hypodense small vessel ischemic disease and few scattered lacunar infarcts measuring up to 6 mm in the basal ganglia bilaterally. Slight, benign right basal ganglia calcifications. No definite acute infarct, hemorrhage, mass effect or midline shift, to the extent assessed. No abnormal extra-axial fluid collections. Stable posterior fossa with preserved basilar cisterns. Slight leftward nasal septal bowing. Hypoplastic left frontal sinus. Clear remainder imaged paranasal sinuses and mastoid air cells. Atherosclerotic internal carotid and vertebral artery calcifications. Bilateral external auditory canal debris may be directly visualized. Intact calvarium. Normal scalp. Few radiopaque maxillary dental fillings and an edentulous mandible noted. CONCLUSION: No acute intracranial CT abnormality with age-appropriate atrophy, microvascular changes, lacunar infarcts and few other findings, as described. Thank you for the opportunity to participate in this patient's care.
--- NOTE | 2017-01-20 12:09 | Cat Scan Report ---
CT CERVICAL SPINE WITHOUT CONTRAST INDICATION: Fall. COMPARISON: None similar. FINDINGS: Noncontrast axial, sagittal and coronal CT reconstructions through the cervical spine limited due to patient positioning, though suggest grossly preserved vertebral body stature, allowing for mild degenerative spurring at some lower cervical levels. Approximately 1 mm anterolisthesis of C4 over C5 possible. Assessment of the spinal canal from C6 level inferiorly compromised due to artifact. Intact craniocervical articulation with normal dens, predental space and prevertebral soft tissues. Normal imaged posterior fossa and mastoid air cells. Left external auditory canal debris may be directly visualized. Extensive atherosclerotic vascular calcifications. Osteopenia/osteoporosis with few surgical clips noted between the clavicles medially. Mild asymmetric prominence/enlargement of the right medial clavicular end/possible fibrous dysplasia. Surgical clip about the right carotid bulb also noted. Slight emphysematous changes in the imaged upper lobes possible. On the obtained axial images: C2-C3 demonstrates slight facet arthropathy. C3-C4 demonstrates severe left facet arthropathy and left neural foraminal narrowing, axial image 41, series 5. C4-C5 also demonstrates severe asymmetric left facet arthropathy and left neural foraminal narrowing. Mild right facet arthropathy as well. C5-C6 demonstrates mild bilateral facet arthropathy. Right neural foraminal narrowing suspected. C6-C7 and C7-T1 demonstrate mild bilateral facet arthropathy/sclerosis. CONCLUSION: No acute CT abnormality with multilevel cervical spine degenerative changes and various other incidental findings, including few post surgical changes, as described. Thank you for the opportunity to participate in this patient's care.
[2017-01-20 13:13] VITALS: BP 132/66
== END 2017-01-20 14:57 | disposition home or self-care (01) ==
LOC: ED 07:56
DX: T83.098A Other mechanical complication of other urinary catheter, initial encounter (principal); N30.00 Acute cystitis without hematuria; F03.90 Unspecified dementia, unspecified severity, without behavioral disturbance, psychotic disturbance, mood disturbance, and anxiety; I10 Essential (primary) hypertension; I25.2 Old myocardial infarction; I50.9 Heart failure, unspecified; E11.9 Type 2 diabetes mellitus without complications; J44.9 Chronic obstructive pulmonary disease, unspecified; I25.10 Atherosclerotic heart disease of native coronary artery without angina pectoris; Z86.73 Personal history of transient ischemic attack (TIA), and cerebral infarction without residual deficits; Z90.49 Acquired absence of other specified parts of digestive tract; Z79.82 Long term (current) use of aspirin; W18.39XA Other fall on same level, initial encounter; Y93.89 Activity, other specified; Y99.8 Other external cause status; Y92.89 Other specified places as the place of occurrence of the external cause
CPT/HCPCS: 36415; 70450; 71010; 72125; 72170; 73502; 80048; 81001; 82550; 85025; 96374; 99285; J2060